=== PATIENT | male | born 1940 | race Caucasian/White ===

== ENCOUNTER 2018-05-07 11:58 | Emergency (ER) | payer MEDICARE, SELFPAY ==
[2018-05-07 11:59] VITALS: BP 181/93; PULSE 89; RESP 14; TEMP 35.7; O2SAT 92; BMI 27.0
[2018-05-07 12:04] VITALS: BP 181/93; PULSE 88; RESP 21; O2SAT 92
--- NOTE | 2018-05-07 12:20 | EKG12_ITS ---
Test Reason : Blood Pressure : / mmHG Vent. Rate : 089 BPM Atrial Rate : 089 BPM P-R Int : 224 ms QRS Dur : 080 ms QT Int : 344 ms P-R-T Axes : 035 -44 049 degrees QTc Int : 418 ms Sinus rhythm with 1st degree A-V block Left axis deviation Poor R wave progression Abnormal ECG Confirmed by SLOANE CALDWELL, TWIN ([id number]), editor news KADEEM KUO ([id number]) on 05/09/2018 4:21:54 PM Referred By: ANGELIQUE Confirmed By:TWIN ANTON MD
--- NOTE | 2018-05-07 12:20 | CT_ITS ---
STUDY: CT BRAIN WITHOUT CONTRAST REASON FOR EXAM: Male, 78 years old. Weakness. The patient has history of prostate cancer. RADIATION DOSAGE (If Supplied By Facility): CTDIvol = ( 60.81 ) mGy, DLP = ( 1181.11 ) mGycm TECHNIQUE: Transaxial CT imaging of the brain was performed without administration of intravenous contrast material. Individualized dose optimization techniques were used for this CT. COMPARISON: Comparison is made with prior study dated August 31, 2016. FINDINGS: Normal soft tissue structures. The patient is status post right parietal craniotomy. The previously seen right subdural hematoma has been evacuated. There is moderate cerebral atrophy with widening of the extra-axial spaces and ventricular dilatation. There are areas of decreased attenuation within the white matter tracts of the supratentorial brain, consistent with microvascular disease changes. Normal basal ganglia and thalami. Normal brainstem. Normal cerebellum. There is no intracranial hemorrhage. There are no findings of an acute ischemic infarction. Atherosclerotic calcification of the vertebral arteries and cavernous portions of the internal carotid arteries bilaterally. Normal visualized paranasal sinuses. CT/Brain/Head without Contrast IMPRESSION: Chronic involutional changes of the brain. Electronically Signed: Jairon Jimenez MD at 13:22 EST Tel [phone], Service support ,
--- NOTE | 2018-05-07 12:31 | ED.DCSUM_ITS ---
- ER Visit Summary Date of Service: 05/07/18 Chief Complaint: Generalized weakness History of Present Illness: The patient is a 78 M history of Parkinson's disease, essential tremor, vgk-kzuigux-mcogwbkrs diabetes, DVT, prior intracranial bleed with prior craniotomy. Patient was at home today felt generally weak which his states is been ongoing. They have a caregiver at home and they have the lower end of the bathroom because he felt so weak. No fall. No injury. No nausea, vomiting, diarrhea no dysuria. No fever. No recent head injury. He does have falls from time to time. Physical Examination: Well-appearing older male. Vital signs are stable and afebrile. H EENT exam unremarkable and atraumatic. Pupils are round reactive light. No facial droop. Normal speech. Neck nontender. Lungs clear to auscultation. Heart regular rhythm no murmur. Chest wall nontender. Abdomen soft nontender. Normal bowel sounds. Pelvic girdle intact. Patient is moving all 4 extremities. 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 Neurologically he is awake and alert. He does have essential tremors and parkinsonian characteristics. He is moving all 4 extremities however. Test Results: CT brain shows chronic changes no acute process read both by the radiologist myself. Chest x-ray portable one view shows no acute abnormality. Atelectasis. Read both by myself and the radiologist. EKG sinus rhythm rate 89 with no acute abnormality. CBC White count 6. Hemoglobin 15. Electrolytes unremarkable glucose of 196. Gap of 12 creatinine 1.2. UA normal. Emergency Department Course and Treatment: Elderly male with generalized weakness. On repeat exam patient is doing well at 16:42 PM. I went over all test results the patient and his . She states he has physical therapy which she is not been that willing to do. She is comfortable taking him home. I did offer discussed with him admission with [facility]ci placement which they are not ready for at this time. Treatment Plan: Discharge to home with follow-up with her primary care physician. Disposition: dc Impression: Acute generalized weakness History of Parkinson's disease This note was generated with [employer] dictation software. It may contain incorrect words, spelling, and punctuation that were not noted in review of the chart prior to signing ED Disposition - Plan for ED Patient: Chief Complaint: Weakness Referrals: Vipin Martin MD [Primary Care Provider] -
--- NOTE | 2018-05-07 12:35 | RAD_ITS ---
STUDY: X-RAY CHEST REASON FOR EXAM: Male, 78 years old. Weakness. TECHNIQUE: Single AP portable view of the chest. COMPARISON: Comparison is made with prior study dated March 13, 2014. FINDINGS: EKG electrodes are seen. There is elevation of the right hemidiaphragm. Mild increased markings at the left lung base suggestive of left basilar atelectasis. Blunting of the left costophrenic angle. Normal size heart. Normal mediastinum and annetta. Normal visualized pulmonary arteries. There is atherosclerotic tortuosity of the aortic arch and descending thoracic aorta. There are diffuse degenerative changes of the visualized thoracic spine. Normal visualized ribs, clavicles, and shoulders. There is no demonstrated abnormality of the visualized soft tissue structures of the upper abdomen. RAD/Chest 1 View (Portable) IMPRESSION: Mild increased linear markings at the left lung base suggestive of linear atelectasis. Follow-up is recommended. Electronically Signed: Jairon Jimenez MD at 13:00 EST Tel [phone], Service support ,
[2018-05-07 12:57] LABS: Absolute Lymphocyte Count 1.36 X10^3/ul (0.83-4.51); Absolute Neutrophil Count 3.9 X10^3/uL (2.0-7.7); Basophil# 0.01 X10^3/uL; Basophil% 0.2 % (0-1); Eosinophil# 0.24 X10^3/uL; Hematocrit 47.5 % (40-54); Hemoglobin 15.9 g/dl (13.0-16.5); Lymphocyte # 1.36 X10^3/ul (4.0); Lymphocyte % 22.4 % (19-41); Mean Corp Hgb Conc 33.5 g/gl (32-36); Mean Corpuscular Hgb 31.7 pg (27.0-32.0); Mean Corpuscular Volume 94.6 fL (80-94); Monocyte# 0.59 X10^3/uL; Monocyte% 9.7 % (0-10); Neutrophil # 3.85 X10^3/uL (2.7-7.7); Neutrophil % 63.5 % (47-70); Platelet Count 245 K/mm3 (150-450); RBC Distribution Width CV 13.5 % (11.6-14.6); RBC Distribution Width SD 46.6 fl (35.1-43.9); Red Blood Count 5.02 M/mm3 (4.6-6.2); White Blood Count 6.1 K/mm3 (4.4-11.0)
[2018-05-07 12:58] LABS: POSITIVE COUNT NO; POSITIVE DIFFERENTIAL NO; POSITIVE MORPHOLOGY NO
[2018-05-07 13:08] LABS: Anion Gap 12 (5-15); BUN 22 mg/dL (7-18); BUN/Creat Ratio 17.9 RATIO (10-20); Calcium,Total 9.1 mg/dL (8.5-10.1); Chloride 105 mmol/L (98-107); Creatinine, Serum 1.23 mg/dL (0.70-1.30); EST Glomerular Filtration Rate 61 mL/min (>60); Est Glom Filt Rate - Afr Amer 73 mL/min (>60); Estimated Creatinine Clearance 47.89 ml/min; Glucose 196 mg/dL (74-106); Potassium 4.4 mmol/L (3.5-5.1); Sodium Level 142 mmol/L (136-145)
[2018-05-07 14:35] VITALS: BP 190/100; PULSE 82; RESP 14; O2SAT 94
[2018-05-07 15:11] LABS: Mucous, Urine 0 SEEN /hpf (<or=2+); Red Blood Cells-Urine 0 SEEN /hpf (0-5); Squamous Epithelial Cells - UA 0 SEEN /hpf (0-5)
[2018-05-07 15:18] LABS: Color, Urine Yellow (Yellow); Glucose, Dipstick 50 mg/dl (Normal); Ketone-Dipstick 5 mg/dl (Negative); Leukocyte Esterase-Dipstick Negative /ul (Negative); Nitrite-Dipstick Negative (Negative); Occult Blood-Urine Negative /ul (Negative); Protein-Dipstick 30 mg/dl (Negative); Specific Gravity, Urine 1.015 (1.002-1.030); Urine Bilirubin Dipstick Negative (Negative); Urine Clarity Clear (Clear); Urine Urobilinogen Normal (Normal)
[2018-05-07 15:34] LABS: White Blood Cells 0-5 SEEN /hpf (0-5)
[2018-05-07 15:35] LABS: Bacteria RARE /hpf (None Seen)
[2018-05-07 16:03] VITALS: BP 180/97; PULSE 84; RESP 16; O2SAT 94
--- NOTE | 2018-05-07 16:56 | ED.DEP ---
ED Disposition - Plan for ED Patient: Disposition: Home or Assisted Living Chief Complaint: Weakness Instructions: ED Weakness [facility] Referrals: Vipin Martin MD [Primary Care Provider] - 3-5 Days if not improving Additional Instructions: Fluids and rest. Follow-up your primary care physician or return if not improving or doing worse.
[2018-05-07 17:40] VITALS: BP 172/90; PULSE 80; RESP 15; O2SAT 97
== END 2018-05-07 17:41 | disposition home or self-care (01) ==
PROVIDERS: Emergency Provider Emergency Medicine; Family Provider Internal Medicine; PCP Internal Medicine
DX: R53.1 Weakness (principal); G20 Parkinson's disease; G25.0 Essential tremor; K21.9 Gastro-esophageal reflux disease without esophagitis; E11.9 Type 2 diabetes mellitus without complications; Z86.718 Personal history of other venous thrombosis and embolism; Z79.84 Long term (current) use of oral hypoglycemic drugs; Z79.899 Other long term (current) drug therapy
CPT/HCPCS: 70450; 71045; 80048; 81001; 85025; 93005; 99284; A4216

== ENCOUNTER → 2018-06-22 10:36 | Outpatient (CLI) | payer MEDICARE, SELFPAY ==
--- NOTE | 2018-06-22 11:01 | MRI_ITS ---
STUDY: MRI BRAIN WITH AND WITHOUT CONTRAST REASON FOR EXAM: Male, 78 years old. NPH. Sagittal tremors. Parkinson's. Increased falls. TECHNIQUE: Standardized multiplanar fat and water weighted pulse sequences were obtained. 8 ml of Gadavist contrast material was administered intravenously for the contrast portion of the examination. COMPARISON: CT head without contrast 05/07/2018. FINDINGS: No restricted diffusion throughout the brain parenchyma. Moderate dilatation of the third and lateral ventricles due to cerebral atrophy, central and cortical. Normal cerebral aqueduct and fourth ventricle. Normal white matter tracts of the supratentorial brain. Normal bilateral basal ganglia. Normal thalami. There is no extra-axial fluid accumulation. Normal flow voids within the major intracranial circulation suggesting patency by spin echo criteria. Normal venous enhancement. There is no enhancing intra-axial or extra-axial abnormality. Normal sella turcica, pituitary gland, infundibular stalk, optic chiasm and hypothalamus. Normal tectal plate and pineal gland. Normal midbrain, maddy and medulla. Normal cerebellum. Normal basal cisterns. Normal bilateral temporal bones. Normal bilateral internal auditory canals. No demonstrated orbital abnormality, within the constraints of a routine brain study. Normal visualized paranasal sinuses. Normal calvarium and skull base. Normal visualized soft tissue structures. Normal visualized upper cervical spine. MRI/Brain W/WO Contrast IMPRESSION: 1. Moderate dilatation of the third and lateral ventricle secondary to cerebral atrophy, central and cortical. 2. No MRI evidence of NPH. If clinical NPH is present, radionuclide cisternogram will be more helpful. Electronically Signed: Quincy Morton MD at 11:13 EST , Service support ,
[2018-06-22 11:36] LABS: CREATININE FINGERSTICK 1.2 mg/dL (0.70-1.30); EGFR FINGERSTICK > 60.0000 mL/min (>60)
== END ==
PROVIDERS: Family Provider Internal Medicine; PCP Internal Medicine; Referring Provider Psychiatry & Neurology Neurology; Visit Provider Psychiatry & Neurology Neurology
DX: G91.2 (Idiopathic) normal pressure hydrocephalus (principal)
CPT/HCPCS: 70553; A9585

== ENCOUNTER 2018-11-27 11:03 | Emergency (ER) | payer MEDICARE, SELFPAY ==
[2018-11-27 11:04] VITALS: BP 185/89; PULSE 74; RESP 12; TEMP 37.3; O2SAT 94; BMI 29.3
--- NOTE | 2018-11-27 11:25 | RAD_ITS ---
STUDY: X-RAY CHEST REASON FOR EXAM: Male, 78 years old. Chest pain. TECHNIQUE: Single AP portable view of the chest. COMPARISON: Comparison is made with prior study dated May 07, 2018. FINDINGS: EKG electrodes are seen. Elevation of the right hemidiaphragm. The lungs are clear. There is no demonstrated pleural abnormality. Normal size heart. Normal mediastinum and annetta. Normal visualized pulmonary arteries. There is atherosclerotic tortuosity of the aortic arch and descending thoracic aorta. There are diffuse degenerative changes of the visualized thoracic spine. Normal visualized ribs, clavicles, and shoulders. There is no demonstrated abnormality of the visualized soft tissue structures of the upper abdomen. RAD/Chest 1 View (Portable) IMPRESSION: No acute abnormality is seen. Electronically Signed: Jairon Jimenez, at 12:21 EDT , Service support ,
--- NOTE | 2018-11-27 11:25 | EKG12_ITS ---
Test Reason : CP Blood Pressure : / mmHG Vent. Rate : 074 BPM Atrial Rate : 074 BPM P-R Int : 228 ms QRS Dur : 082 ms QT Int : 364 ms P-R-T Axes : 024 -42 060 degrees QTc Int : 404 ms Sinus rhythm with 1st degree A-V block Left axis deviation Abnormal ECG Confirmed by SWATHI PÉREZ ([id number]), editor in chief JOSEFINA PENG ([id number]) on 12/03/2018 10:22:55 AM Referred By: LEONCIO Confirmed By:SWATHI PÉREZ
[2018-11-27] MEDS: 0.9% Normal Saline 1,000 ML 150 ML IV (12:15)
[2018-11-27] MEDS: Aspirin 81 MG TAB.CHEW 324 MG PO (12:15)
[2018-11-27 12:35] LABS: Absolute Lymphocyte Count 1.08 X10^3/ul (0.83-4.51); Absolute Neutrophil Count 4.6 X10^3/uL (2.0-7.7); Basophil# 0.04 X10^3/uL; Basophil% 0.6 % (0-1); Eosinophil# 0.29 X10^3/uL; Eosinophils% 4.4 % (0-5); Hematocrit 43.3 % (40-54); Hemoglobin 14.5 g/dl (13.0-16.5); Lymphocyte # 1.08 X10^3/ul (4.0); Lymphocyte % 16.2 % (19-41); Mean Corp Hgb Conc 33.5 g/gl (32-36); Mean Corpuscular Hgb 31.5 pg (27.0-32.0); Mean Corpuscular Volume 93.9 fL (80-94); Mean Platelet Vol. 9.6 fl (6.2-12.0); Monocyte# 0.62 X10^3/uL; Monocyte% 9.3 % (0-10); Neutrophil # 4.62 X10^3/uL (2.7-7.7); Neutrophil % 69.3 % (47-70); Platelet Count 224 K/mm3 (150-450); RBC Distribution Width CV 13.1 % (11.6-14.6); RBC Distribution Width SD 44.5 fl (35.1-43.9); Red Blood Count 4.61 M/mm3 (4.6-6.2); White Blood Count 6.7 K/mm3 (4.4-11.0)
[2018-11-27 12:39] LABS: Anion Gap 9 (5-15); BUN 22 mg/dL (7-18); BUN/Creat Ratio 23.7 RATIO (10-20); Calcium,Total 6.8 mg/dL (8.5-10.1); Chloride 117 mmol/L (98-107); Creatinine, Serum 0.93 mg/dL (0.70-1.30); EST Glomerular Filtration Rate 83 mL/min (>60); Est Glom Filt Rate - Afr Amer 101 mL/min (>60); Estimated Creatinine Clearance 63.33 ml/min; Glucose 117 mg/dL (74-106); Sodium Level 147 mmol/L (136-145)
[2018-11-27 12:43] LABS: POSITIVE COUNT NO; POSITIVE DIFFERENTIAL NO; POSITIVE MORPHOLOGY NO
[2018-11-27 14:04] VITALS: BP 173/89; PULSE 66; RESP 14; O2SAT 96
--- NOTE | 2018-11-27 14:43 | ED.DCSUM_ITS ---
- ER Visit Summary Date of Service: 11/27/18 Chief Complaint: [Chest pain] History of Present Illness: The patient is a 78 M [presents to the emergency department with chest discomfort that started around 1015 this morning. Patient states that he was eating breakfast. Patient developed a retrosternal disc omfort that he states felt like gas and he became sweaty and pale per caregiver. Patient states that it lasted several minutes and then resolved as he felt the gas resolved in his stomach. He denied any radiation of the pain. He is never had discomfort like that before. He has no heart history. Patient currently has no discomfort. Patient does have a history of diabetes, hypertension, prostate cancer, benign tremor, and memory loss.] Physical Examination: [HEENT-PERRLA, EOMI. Cranial nerves II through XII grossly intact. TMs clear. Mucous membranes moist. No adenopathy. Cardiovascular-regular rate and rhythm without murmur or ectopy Lungs-clear to auscultation, chest wall stable without crepitus or subcu emphysema Abdomen-normoactive bowel sounds, soft, nontender, no rebound or rigidity, no peritoneal signs. Extremities-intact ?4, normal range of motion, normal pulses, atraumatic] Test Results: [EKG obtained arrival shows sinus rhythm with a first-degree AV block with a ventricular rate of 74 bpm with no acute ST segment changes. CBC with differential showed a white count 6.7, hemoglobin 14, hematocrit 43, platelets 224. Chemistries are unremarkable other than a potassium of 3.0. BUN was 22 and creatinine was 0.93. Troponin was less than 0.015. Second troponin II hours later was less than 0.015.] Emergency Department Course and Treatment: [Patient on arrival received aspirin.] Treatment Plan: [This point my suspicion for acute coronary syndrome is low. I suspect symptoms likely related to eating and possibly esophageal spasm versus gas. I did advise patient to follow-up with his primary care physician within next 3 to 5 days. I advised him to return if chest pain should return, increasing shortness of breath, exertional dyspnea, or condition should worsen anyway.] Disposition: [Discharged home in stable condition.] Impression: [Chest pain-etiology uncertain] This note was generated with [employer] dictation software. It may contain incorrect words, spelling, and punctuation that were not noted in review of the chart prior to signing ED Disposition - Plan for ED Patient: Instructions: CHEST PAIN, Uncertain Cause Referrals: Vipin Martin MD [Primary Care Provider] - 3-5 Days
[2018-11-27 15:38] VITALS: BP 154/83; PULSE 90; RESP 16; TEMP 36.3; O2SAT 98
== END 2018-11-27 15:39 | disposition home or self-care (01) ==
PROVIDERS: Emergency Provider Emergency Medicine; Family Provider Internal Medicine; PCP Internal Medicine
DX: R07.89 Other chest pain (principal); I10 Essential (primary) hypertension; E11.9 Type 2 diabetes mellitus without complications; R41.3 Other amnesia; R25.1 Tremor, unspecified; Z85.46 Personal history of malignant neoplasm of prostate; Z79.84 Long term (current) use of oral hypoglycemic drugs; Z79.899 Other long term (current) drug therapy
CPT/HCPCS: 36415; 71045; 80048; 84484; 85025; 93005; 96360; 96361; 99285; J7030; A4216

== ENCOUNTER 2020-12-02 20:04 | Emergency (ER) | payer MEDICARE, SELFPAY ==
[2020-12-02 20:06] VITALS: BP 166/67; PULSE 87; RESP 18; TEMP 36.5; O2SAT 98; BMI 28.9
--- NOTE | 2020-12-02 20:07 | RAD_ITS ---
STUDY: X-RAY CHEST REASON FOR EXAM: Male, 80 years old. Neuro deficit, acute, stroke suspected TECHNIQUE: Single AP portable view of the chest. COMPARISON: 11/27/2018. FINDINGS: Moderate lung volumes. Mild subsegmental atelectasis suggested in both lung bases. No definite focal infiltrate. No effusions. Normal size heart. Normal mediastinum and annetta. Normal visualized pulmonary arteries. Normal visualized aortic arch and descending thoracic aorta. Normal visualized thoracic spine. Normal visualized ribs, clavicles, and shoulders. There is no demonstrated abnormality of the visualized soft tissue structures of the upper abdomen. RAD/Chest 1 View IMPRESSION: Mild subsegmental atelectasis suggested in both lung bases. Electronically Signed: José Miguel Macdonald MD at 21:02 EDT , Service support ,
--- NOTE | 2020-12-02 20:07 | EKG12_ITS ---
Test Reason : STROKE Blood Pressure : / mmHG Vent. Rate : 087 BPM Atrial Rate : 087 BPM P-R Int : 258 ms QRS Dur : 088 ms QT Int : 356 ms P-R-T Axes : 050 -14 060 degrees QTc Int : 428 ms Sinus rhythm with 1st degree A-V block Otherwise normal ECG Confirmed by HUNG CALDWELL, REAL ([id number]), commissioning editor JAMIR WILKINS ([id number]) on 12/04/2020 12:56:02 PM Referred By: RU Confirmed By:REAL PERSAUD MD
--- NOTE | 2020-12-02 20:08 | EDS_ITS ---
HPI History of Present Illness Chief Complaint: Neuro S/Sx Detail of Chief Complaint: Right-sided facial droop Informant: patient and EMS Narrative Narrative: Patient's noticed a right-sided facial droop approximately 15 minutes prior to EMS being contacted time was approximately 1930. Patient denies headache. He denies weakness. He does have history of essential tremor. He said a history of hypertension. Patient has history of intracranial hemorrhage 4 years ago after a fall. Patient denies recent illness. Prior similar symptoms: No PFSH [facility] Medical History (Updated 12/02/20 @ 21:[address] Jose Aggarwal, DO) Essential tremor Subdural hematoma Home Medications coenzyme Q10 [Co Q-10] 100 mg PO DAILY 03/13/14 [History Last Taken 05/07/18] glipizide 10 mg PO DAILY@0730 03/13/14 [History Last Taken 05/07/18] lisinopril 40 mg PO DAILY 03/13/14 [History Last Taken 05/06/18] metformin 1,000 mg PO DAILY 08/17/16 [History Last Taken 05/06/18] vitamin B complex 1 cap PO DAILY 08/17/16 [History Last Taken 05/07/18] Advanced Memory Formula 11/27/18 [History Last Taken Unknown] hydralazine 50 mg PO TID 11/27/18 [History Last Taken Unknown] propranolol 20 mg PO TID 11/27/18 [History Last Taken Unknown] doxazosin 1 mg PO DAILY 12/02/20 [History Last Taken Unknown] dulaglutide [Trulicity] mg SUBCUT 12/02/20 [History Last Taken Unknown] famciclovir 250 mg PO TID 7 Days #21 tab 12/02/20 [Rx Last Taken Unknown] prednisone 20 mg PO BID 5 Days #10 tab 12/02/20 [Rx Last Taken Unknown] Allergy/AdvReac Type Severity Reaction Status Date / Time No Known Allergies Allergy Verified 03/13/14 16:31 Social History Smoking Status: Never smoker ROS ROS ED Constitutional Constitutional ED: Reports systems reviewed and no addt'l complaints, except as documented; Denies body ache(s), change in weight or chills Eyes Eyes: Denies acute decrease in peripheral vision, change in vision, double vision or loss of vision ENT ENT ED: Reports none; Denies ear pain, lip swelling, loss taste/smell, neck pain, otalgia or sore throat Cardiovascular Cardiovascular: Reports none; Denies abdominal pain, chest pain with activity, leg edema, lightheadedness, palpitations, rapid heart rate or syncope Respiratory/Chest Respiratory/Chest: Reports none; Denies change in mental status, dry cough, dyspnea, hemoptysis, shortness of breath at rest or shortness of breath with exertion Gastrointestinal Gastrointestinal: Reports none; Denies abdominal pain, change in stool character, diarrhea, hematemesis, hematochezia, melena, rectal bleeding or vomiting Genitourinary Genitourinary ED: Reports none; Denies abdominal discomfort, anuria, dysuria, genital pain or polyuria Musculoskeletal Musculoskeletal: Reports none; Denies arthralgias, back pain, difficulty walking, extremity pain, muscle weakness or myalgias Integumentary Reports none; Denies abscess or rash Neurologic Neurologic: Reports none and other Details: Right facial droop ; Denies abnormal gait, confusion, focal weakness, frequent falls, headache(s), loss of vision, numbness, paresthesias, radicular pain, vertigo or weakness Psychiatric Psychiatric: Reports systems reviewed and no addt'l complaints, except as documented and none; Denies behavioral changes, confusion, difficulty concentrating, hallucinations, suicidal ideation, tactile hallucinations or visual hallucinations Endocrine Endocrinology: Denies none, cold intolerance, excessive sweating, fatigue or heat intolerance Hematologic/Lymphatic Hematologic/Lymphatic: Reports none; Denies anemia, easy bleeding or easy bruising Allergic/Immunologic Allergic/Immunologic ED: Denies as per HPI, none, lip swelling, mouth swelling, throat swelling, tongue swelling or hives EXAM Physical Exam Const Vital Signs: 12/02/20 20:06 12/02/20 20:23 Temperature 97.7 F L Temperature Source Temporal Pulse Rate 87 Respiratory Rate 18 Blood Pressure 166/67 H Blood Pressure Mean 100 Pulse Ox 98 Oxygen Delivery Method Room Air Room Air Positive well nourished and well developed General Appearance ED: well developed and NAD HEENT Reports TM's clear and moist mucous membranes normocephalic and atraumatic; Negative for trauma or tenderness Tympanic Membrane ED: Yes TM's clear Eyes PERRL and EOMs intact bilaterally General Eye ED: Negative for pale conjunctiva or scleral icterus Neck no lymphadenopathy, supple and no JVD General: Negative for tenderness Chest Wall inspection of chest normal and palpation of chest normal Chest: Negative for tenderness Resp normal respiratory effort and clear to auscultation bilaterally Effort and Inspection: Negative for respiratory distress or pain with movement Auscultation: Negative for rhonchi, wheezes or diminished lung sounds Cardio regular rate, regular rhythm, S1 normal heart sound, S2 normal heart sound and no murmurs Peripheral Pulses: pulses 2+ throughout GI normal to inspection, nondistended, normoactive bowel sounds, soft to palpation, non-tender, non-distended and no masses Back/Spine no CVA tenderness and no thoracic nor lumbar tenderness Extremity normal to inspection General Extremety ED: Negative for edema General Extremity: Negative for edema Neuro oriented x3, no sensory deficits noted and gait normal Neuro Narrative: A right-sided facial droop is present. Sensorium / Orientation: awake, alert, oriented to person, oriented to place and oriented to time Motor Exam: strength 5/5 throughout and strength abnormal Psych mental status grossly normal Skin no rashes or lesions noted and no wounds STROKE Vital Signs/Narrative: Vital Signs Temp Pulse Resp BP Pulse Ox 12/02/20 20:06 97.7 F L 87 18 166/67 H 98 MDM MDM MDM Narrative Medical decision making narrative: Patient had right upper lid weakness and inability to wrinkle the right upper forehead compared to the left. I suspect patient may have a Leal's palsy and teleneurology stroke neurologist was in agreement. At this point it was recommended that we start patient on antiviral as well as prednisone and outpatient follow-up. CTA of head neck was normal as well as CT scan of the brain. Lab Data Attestation: I reviewed the patient's lab results. Labs: Laboratory Results - last 24 hr 12/02/20 12/02/20 12/02/20 20:00 20:00 20:00 WBC 8.4 RBC 3.93 L Hgb 10.4 L Hct 33.8 L MCV 86.0 MCH 26.5 L MCHC 30.8 L RDW Std Deviation 48.5 H RDW Coeff of Armani 15.4 H Plt Count 314 MPV 9.7 Immature Gran % (Auto) 0.200 Neut % (Auto) 64.4 Lymph % (Auto) 19.8 Kemper % (Auto) 10.6 H Eos % (Auto) 4.4 Baso % (Auto) 0.6 Absolute Neuts (auto) 5.4 Absolute Lymphs (auto) 1.66 Nucleated RBC % 0 PT 12.2 INR 1.0 APTT 28.9 Sodium 141 Potassium 4.5 Chloride 108 H Carbon Dioxide 26.0 Anion Gap 7 BUN 22 H Creatinine 1.41 H Estim Creat Clear Calc 40.43 Est GFR (MDRD) Af Amer 62 Est GFR (MDRD) Non-Af 51 L BUN/Creatinine Ratio 15.6 Glucose 133 H Calcium 9.4 Troponin I High Sens 9.5 Radiography Diagnostic Testing: Radiology Impression Chest X-Ray 12/02/20 20:07 IMPRESSION: Mild subsegmental atelectasis suggested in both lung bases. Electronically Signed: José Miguel Macdonald MD at 21:02 EDT , Service support , Brain CT 12/02/20 20:08 IMPRESSION: Chronic involutional changes of the brain. No definite acute abnormalities. Electronically Signed: José Miguel Macdonald MD at 20:21 EDT , Service support , ADDENDUM: 12/02/202031 IMPRESSION: Chronic involutional changes of the brain. No definite acute abnormalities. N.B. : The above Results were Read Back by José Miguel Macdonald MD to Dr. Jose Aggarwal MD, and understanding confirmed on 12/02/2020 20:25:16 (ET). Electronically Signed: José Miguel Macdonald MD at 20:21 EDT , Service support , Head/Neck CTA 12/02/20 20:08 IMPRESSION: Normal CTA Head and neck with contrast. Electronically Signed: José Miguel Macdonald MD at 20:44 EDT , Service support , ADDENDUM: 12/02/202053 IMPRESSION: Normal CTA Head and neck with contrast. N.B. : The above Results were Read Back by José Miguel Macdonald MD to Dr. Ori MD, and understanding confirmed on 12/02/2020 20:47:53 (ET). Electronically Signed: José Miguel Macdonald MD at 20:44 EDT , Service support , EKG Initial EKG: Attestation: I personally reviewed and interpreted this EKG as follows: Comments: Sinus rhythm with a ventricular rate of 87 bpm with a first- degree AV block Discharge Plan Triage Chief Complaint: Neuro S/Sx ED Provider: Jose Aggarwal Dx/Rx/DC Orders Clinical Impression: Leal's palsy Instructions: ED Leal's Palsy Prescriptions: New prednisone 20 mg tablet 20 mg PO BID 5 Days Qty: 10 RF: 0 famciclovir 250 mg tablet 250 mg PO TID 7 Days Qty: 21 RF: 0 No Action glipizide 10 MG tablet 10 mg PO DAILY@0730 RF: 0 lisinopril 40 MG tablet 40 mg PO DAILY RF: 0 coenzyme Q10 [Co Q-10] 100 MG capsule 100 mg PO DAILY RF: 0 metformin 1,000 MG tablet 1,000 mg PO DAILY RF: 0 vitamin B complex 1 EACH capsule 1 cap PO DAILY RF: 0 Advanced Memory Formula RF: 0 propranolol 10 MG tablet 20 mg PO TID RF: 0 hydralazine 50 MG tablet 50 mg PO TID RF: 0 doxazosin 1 mg tablet 1 mg PO DAILY RF: 0 Trulicity 0.75 mg/0.5 mL pen injector SUBCUT RF: 0 Primary Care Provider: Vipin Martin Referrals: Vipin Martin MD [Primary Care Provider] - 3-5 Days Disposition Disposition: Home, Self Care
--- NOTE | 2020-12-02 20:08 | CT_ITS ---
We are attempting to reach an attending provider to discuss findings. An addendum with communication details will be sent when the communication is complete. STUDY: CT HEAD STROKE PROTOCOL W/O CONTRAST INJECTION REASON FOR EXAM: Male, 80 years old. Neuro deficit, acute, stroke suspected TECHNIQUE: Transaxial CT imaging of the brain was performed without administration of intravenous contrast material. Individualized dose optimization techniques were used for this CT. COMPARISON: MRI 06/22/2018 FINDINGS: Normal soft tissue structures. Postcraniotomy changes of the right skull, otherwise normal calvarium. There is mild cerebral atrophy with widening of the extra-axial spaces and ventricular dilatation. There are areas of decreased attenuation within the white matter tracts of the supratentorial brain, consistent with microvascular disease changes. Normal basal ganglia and thalami. Normal brainstem. There is mild cerebellar atrophy. Heavily calcified vessels at the base of the brain. There is no intracranial hemorrhage. There are no findings of an acute ischemic infarction. Normal visualized paranasal sinuses. ASPECT score: 10 CT/STROKE Brain/Head without Cont IMPRESSION: Chronic involutional changes of the brain. No definite acute abnormalities. Electronically Signed: José Miguel Macdonald MD at 20:21 EDT , Service support ,
--- NOTE | 2020-12-02 20:08 | CT_ITS ---
We are attempting to reach an attending provider to discuss findings. An addendum with communication details will be sent when the communication is complete. STUDY: CTA HEAD AND NECK WITH CONTRAST REASON FOR EXAM: Male, 80 years old. Neuro deficit, acute, stroke suspected RADIATION DOSAGE (If Supplied By Facility): CTDIvol = ( 24.26 ) mGy, DLP = ( 839.64 ) mGycm TECHNIQUE: CT angiography was performed with a multi-detector CT scanner. Data acquisition was obtained from the skull base through the vertex following intravenous administration of IV 100mL Isovue-370. MIP images were reconstructed from the axial data set. Post-processing of the angiographic images was performed, with multiplanar reformation and 3D reconstruction. Individualized dose optimization techniques were used for this CT. COMPARISON: No relevant priors. FINDINGS: Normal bilateral petrous carotid arteries. Normal right cavernous carotid artery with a normal supraclinoid bifurcation. Normal left cavernous carotid artery with a normal supraclinoid bifurcation. Normal right A1 segments of the anterior cerebral artery. Normal left A1 segments of the anterior cerebral artery. Normal intact anterior communicating artery (ACOM). Normal bilateral A2 segments of the anterior cerebral arteries. Normal right M1 and M2 segments of the middle cerebral arteries, with a normal M1 bifurcation. Normal left M1 and M2 segments of the middle cerebral arteries, with a normal M1 bifurcation. Normal right posterior communicating artery (PCOM). Normal left posterior communicating artery (PCOM). Normal bilateral vertebral arteries. Normal basilar artery with a normal basilar bifurcation. The visualized bilateral superior cerebellar (SCA) arteries are normal. Normal bilateral P1, P2 and visualized P3 segments of the posterior cerebral arteries. There is no demonstrated aneurysm of the [place] of [place]. There is no demonstrated abnormality of the visualized brain. AORTIC ARCH: Normal visualized aortic arch. Normal origins of the brachiocephalic, left common carotid, and left subclavian arteries. RIGHT CAROTID ARTERIES: There is atherosclerotic tortuous elongation of the right common carotid artery. Normal right common carotid bulb. Normal origin of the right internal carotid (ICA) artery without a hemodynamically significant stenosis. There is atherosclerotic tortuous elongation of the cervical portion of the right internal carotid artery. Normal origin of the right external carotid artery (ECA). LEFT CAROTID ARTERIES: There is atherosclerotic tortuous elongation of the left common carotid artery. Normal left common carotid bulb. Normal origin of the left internal carotid (ICA) artery without a hemodynamically significant stenosis. There is atherosclerotic tortuous elongation of the cervical portion of the left internal carotid artery. Normal origin of the left external carotid artery (ECA). VERTEBRAL ARTERIES: Normal bilateral vertebral arteries. CT/STROKE CTA Head AND Neck W/Con IMPRESSION: Normal CTA Head and neck with contrast. Electronically Signed: José Miguel Macdonald MD at 20:44 EDT , Service support ,
[2020-12-02 20:26] LABS: Absolute Lymphocyte Count 1.66 X10^3/uL (0.83-4.51); Absolute Neutrophil Count 5.4 X10^3/uL (2.0-7.7); Basophil# 0.05 X10^3/uL; Basophil% 0.6 % (0-1); Eosinophil# 0.37 X10^3/uL; Eosinophils% 4.4 % (0-5); Hematocrit 33.8 % (40-54); Hemoglobin 10.4 g/dL (13.0-16.5); Lymphocyte # 1.66 X10^3/ul (0.83-4.51); Lymphocyte % 19.8 % (19-41); Mean Corp Hgb Conc 30.8 g/dL (32-36); Mean Corpuscular Hgb 26.5 pg (27.0-32.0); Mean Platelet Vol. 9.7 fl (6.2-12.0); Monocyte# 0.89 X10^3/uL; Monocyte% 10.6 % (0-10); NRBC Flagged by Analyzer 0 % (0-5); Neutrophil # 5.38 X10^3/uL (2.7-7.7); Neutrophil % 64.4 % (47-70); Platelet Count 314 K/mm3 (150-450); RBC Distribution Width CV 15.4 % (11.6-14.6); RBC Distribution Width SD 48.5 fl (35.1-43.9); Red Blood Count 3.93 M/mm3 (4.6-6.2); White Blood Count 8.4 K/mm3 (4.4-11.0)
[2020-12-02 20:41] LABS: Prothrombin Time (Protime)PT. 12.2 SECONDS (11.7-14.9)
[2020-12-02 20:42] LABS: Partial Thromboplast Time 28.9 Seconds (24.1-36.2)
[2020-12-02 20:46] LABS: Anion Gap 7 (5-15); BUN 22 mg/dL (7-18); BUN/Creat Ratio 15.6 RATIO (10-20); Calcium,Total 9.4 mg/dL (8.5-10.1); Chloride 108 mmol/L (98-107); Creatinine, Serum 1.41 mg/dL (0.70-1.30); EST Glomerular Filtration Rate 51 mL/min (>60); Est Glom Filt Rate - Afr Amer 62 mL/min (>60); Estimated Creatinine Clearance 40.43 ml/min; Glucose 133 mg/dL (74-106); Potassium 4.5 mmol/L (3.5-5.1); Sodium Level 141 mmol/L (136-145); Troponin-I HS 9.5 pg/mL (3.0-78.5)
--- NOTE | 2020-12-02 20:51 | ED.RN ---
2041 DR. FANG CANCELLED [facility] D/T DIAGNOSIS OF BELLS PALSY
[2020-12-02 20:52] VITALS: BMI 28.9
[2020-12-02 21:16] VITALS: BP 135/80; PULSE 85; RESP 18; O2SAT 97
[2020-12-02] MEDS: Contrast Allergy Safety Check IV (21:17)
[2020-12-02] MEDS: predniSONE 20 MG Tablet 40 MG PO (21:37)
[2020-12-02] MEDS: Acyclovir 200 MG Capsule 400 MG PO (21:37)
[2020-12-02 22:04] VITALS: BP 131/72; PULSE 84; RESP 18
--- NOTE | 2020-12-05 10:03 | CM.ED ---
Late Entry for 12/02/20 Referral Source: Case Find Referral Reason: Stroke Alert SW responded to stroke alert for patient. No family present to provide support. SW remains available as needed. Moni DEY
== END 2020-12-02 22:05 | disposition home or self-care (01) ==
PROVIDERS: Emergency Provider Emergency Medicine; PCP Internal Medicine
DX: G51.0 Bell's palsy (principal); I10 Essential (primary) hypertension; Z79.899 Other long term (current) drug therapy; Z86.73 Personal history of transient ischemic attack (TIA), and cerebral infarction without residual deficits
CPT/HCPCS: 70450; 70496; 70498; 71045; 80048; 84484; 85025; 85610; 85730; 93005; 99285; Q9967

== ENCOUNTER → 2021-03-22 08:09 | Outpatient (CLI) | payer MEDICARE, SELFPAY ==
--- NOTE | 2021-03-22 08:14 | RAD_ITS ---
PROCEDURE: Upper GI with Small Bowel Follow Through DATE OF EXAMINATION: 03/22/2021.. INDICATION: Male, 81 years old. Weight loss. Vomiting. FLUOROSCOPY TIME (if supplied): (1:08) minutes/seconds. 16 images were obtained. TECHNIQUE: Radiographic and fluoroscopic images of the distal esophagus, stomach, and entire small intestine were obtained following the oral ingestion of barium. COMPARISON: None. FINDINGS: The bin tripper operator film of the abdomen demonstrates a normal bowel gas pattern. There are no abnormal calcifications or organomegaly demonstrated. Degenerative changes of the thoracic spine. There is evidence of the gastroesophageal reflux. The remainder of the stomach and duodenum is unremarkable. A single contrast contrast small bowel follow through exam demonstrates the small bowel to have no evidence for stricture, ulceration or mass. The transit time is prolonged. No evidence of obstruction. Surgical clips are seen in the pelvis in keeping with prior radical prostatectomy. RAD/Upper GI/w Small Bowel IMPRESSION: Gastroesophageal reflux. Electronically Signed: Jairon Jimenez MD at 15:40 EDT , Service support ,
== END ==
PROVIDERS: PCP Internal Medicine; Referring Provider Nurse Practitioner; Visit Provider Nurse Practitioner
DX: R63.4 Abnormal weight loss (principal); R11.2 Nausea with vomiting, unspecified
CPT/HCPCS: 74246; 74248

== ENCOUNTER → 2021-04-22 09:38 | Outpatient (CLI) | payer MEDICARE, SELFPAY ==
--- NOTE | 2021-04-22 09:44 | VDLE_ITS ---
Reason For Study: Swelling Procedure LEFT This is a venous duplex using B-mode, color GSV is normal. flow and spectral Doppler. FV is compressible, spontaneous, phasic, Exam performed in department. competent and demonstrates normal A preliminary report was called and/or faxed augmentation. to Kasie MURRY and [facility]. POP V is compressible, spontaneous, phasic, competent and demonstrates normal augmentation. T/P Trunk is compressible. PTV is compressible. LT PerV is compressible. CFV is noncompressible with no venous flow noted consistent with Acute DVT. VL/Venous Duplex US, Unilateral Interpretation Summary Acute deep venous thrombosis left common femoral vein. Remainder of the left lower extremity deep veins appear to be patent and compre ssible Patent and compressible left great saphenous vein Ordering Physician: Vince English Referring Physician: Vipin Martin M.D. Performed By: Zainab Bergeron RVT
--- NOTE | 2021-04-22 10:08 | RAD_ITS ---
STUDY: X-RAY CHEST REASON FOR EXAM: Male, 81 years old. CHEST PAIN colon mass TECHNIQUE: XR Chest 2 Views COMPARISON: 01/01/2021 FINDINGS: There are bilateral pleural effusions. There are bilateral infiltrates. Normal size heart. Normal mediastinum and annetta. Normal visualized pulmonary arteries. There is atherosclerotic calcification of the aortic arch with tortuosity. There are diffuse degenerative changes of the visualized thoracic spine. There is degenerative osteoarthritis of the bilateral shoulders. Compression formation of the lower thoracic spine. Abnormal air-fluid levels in the colon. Obstruction cannot be excluded recommend CT to evaluate RAD/Chest PA and Lateral IMPRESSION: Abnormal air-fluid levels in the colon. Obstruction cannot be excluded recommend CT to evaluate. There are compression deformities of the spine. These are age-indeterminate. MRI could further evaluate if of concern. Electronically Signed: Chase Mobley MD at 16:52 EST , Service support ,
[2021-04-22 11:49] LABS: Absolute Lymphocyte Count 1.49 X10^3/uL (0.83-4.51); Absolute Neutrophil Count 6.1 X10^3/uL (2.0-7.7); Basophil# 0.03 X10^3/uL; Basophil% 0.4 % (0-1); Eosinophil# 0.13 X10^3/uL; Eosinophils% 1.5 % (0-5); Hematocrit 42.5 % (40-54); Hemoglobin 13.7 g/dL (13.0-16.5); Lymphocyte # 1.49 X10^3/ul (0.83-4.51); Lymphocyte % 17.7 % (19-41); Mean Corp Hgb Conc 32.2 g/dL (32-36); Mean Corpuscular Hgb 27.5 pg (27.0-32.0); Mean Corpuscular Volume 85.2 fL (80-94); Mean Platelet Vol. 9.6 fl (6.2-12.0); Monocyte# 0.66 X10^3/uL; Monocyte% 7.8 % (0-10); NRBC Flagged by Analyzer 0 % (0-5); Neutrophil # 6.09 X10^3/uL (2.7-7.7); Neutrophil % 72.4 % (47-70); Platelet Count 326 K/mm3 (150-450); RBC Distribution Width CV 18.2 % (11.6-14.6); RBC Distribution Width SD 55.9 fl (35.1-43.9); Red Blood Count 4.99 M/mm3 (4.6-6.2); White Blood Count 8.4 K/mm3 (4.4-11.0)
[2021-04-22 11:57] LABS: International Normalized Ratio 0.9; Prothrombin Time (Protime)PT. 11.8 SECONDS (11.7-14.9)
[2021-04-22 11:58] LABS: Partial Thromboplast Time 27.3 Seconds (24.1-36.2)
[2021-04-22 12:20] LABS: ALB/GLOB Ratio 0.8 RATIO (0.9-2.4); AST(SGOT) 20 U/L (15-37); Alanine Aminotransfer ALT/SGPT 16 U/L (16-61); Albumin, Serum 3.1 g/dL (3.2-5.0); Alkaline Phosphatase 136 U/L (45-117); Anion Gap 9 (5-15); BUN 21 mg/dL (7-18); BUN/Creat Ratio 12.7 RATIO (10-20); Calcium,Total 9.9 mg/dL (8.5-10.1); Chloride 104 mmol/L (98-107); Creatinine, Serum 1.65 mg/dL (0.70-1.30); EST Glomerular Filtration Rate 43 mL/min (>60); Est Glom Filt Rate - Afr Amer 52 mL/min (>60); Globulin 3.9 g/dL (2.2-4.2); Glucose 174 mg/dL (74-106); Potassium 4.7 mmol/L (3.5-5.1); Sodium Level 137 mmol/L (136-145)
== END ==
PROVIDERS: PCP Internal Medicine; Visit Provider Surgery
DX: M79.89 Other specified soft tissue disorders (principal); K63.89 Other specified diseases of intestine
CPT/HCPCS: 36415; 71046; 80053; 85025; 85610; 85730; 93971

== ENCOUNTER 2021-04-23 08:29 | Day surgery (SDC) | payer MEDICARE, SELFPAY ==
[2021-04-23] VITALS (17 sets, daily range): BP systolic 110–140; BP diastolic 60–80; PULSE 62–76; RESP 16–18; TEMP 36.1–37.1; O2SAT 95–100; BMI 25.5
--- NOTE | 2021-04-23 | GASB_PTH ---
PATIENT: VIKRAM PORTER LOC: EN U#:[id number] AGE/SX: 81/M ROOM: RE04/23/[address]: Dr. Vince English MD : 1940 BED: DIS: 04/23/2021 SPEC #: [id number] RECD: 04/23/21 11:21 STATUS: BELEM TAD #: [id number] MANISHA: 04/23/21 00:[address]: Vince English DEPT: SURGICAL PATHOLOGY RECD BY: Forrest Dick ENTERED: 04/23/21 12:31 SP TYPE: Gastric Bx OTHR DR: Dr. Vipin Martin MD Tissues: A - Gastric mucous membrane B - COLON BIOPSY C - Stomach, NOS D - Esophageal mucous membrane Procedures: Special Stain Group I Surgery Specimen Level IV GMS Stain (control) HEADER OPERATION: Colonoscopy, EGD ([facility]) PRE-OP DIAGNOSIS: Colonic obstruction TISSUE SUBMITTED: A ? Antrum biopsy for H. pylori and path, B ? Fundic polyp biopsy, C ? Deformity lesser curvature biopsy, D ? Distal esophagus biopsy MICROSCOPIC DIAGNOSIS A. Gastric antrum, biopsy: Chronic gastritis. See comment. B. Gastric fundus, biopsy: Fundic gland polyp. C. Lesser curvature of stomach, biopsy: Mild chronic gastritis. D. Distal esophagus, biopsy: Fibrinopurulent material consistent with ulceration. Negative for fungal organisms. Negative for goblet cell metaplasia. See comment. AM:margie 04/26/2021 COMMENT A. The results of immunohistochemistry for Helicobacter pylori will be reported separately ([id number]). D. GMS stain with matched control was used in the evaluation of this case. AB/PAS stain with matched control is negative for intestinal cell metaplasia. MICROSCOPIC DESCRIPTION Slides are reviewed. GROSS DESCRIPTION A - Received in fixative is one container labeled with the patient's name and designated antrum biopsy. The specimen consists of two irregular fragments of light ledesma soft tissue that in aggregate measure 0.6 x 0.3 x 0.1 cm. The specimen is totally submitted in one cassette. B - Received in fixative is one container labeled with the patient's name and designated fundic polyp biopsy. The specimen consists of one irregular fragment of light ledesma soft tissue that measures 0.4 x 0.3 x 0.1 cm. The specimen is totally submitted in one cassette. C - Received in fixative is one container labeled with the patient's name and designated deformity lesser curvature biopsy. The specimen consists of one irregular fragment of light ledesma soft tissue that measures 0.5 x 0.4 x 0.1 cm. The specimen is totally submitted in one cassette. D - Received in fixative is one container labeled with the patient's name and designated distal esophagus biopsy. The specimen consists of one irregular fragment of light ledesma soft tissue that measures 0.4 x 0.3 x 0.1 cm. The specimen is totally submitted in one cassette. / SJ:rg 04/23/21 TC:3 CPT: 90167 x4, 65021, 61948
[2021-04-23] MEDS: 0.9% Normal Saline 1,000 ML 999 ML IV (07:13)
--- NOTE | 2021-04-23 08:36 | PCM.HP.BLA ---
History and Physical Date of Admission: 04/23/21 Intake Visit Reasons: C-Scope Chief Complaint: c-scope Hi Lift Operator Required: No Is patient in pain?: No Allergies No Known Allergies Allergy (Verified 04/22/21 08:32) [facility] Medical History Colonic mass Essential tremor Subdural hematoma Surgical History S/P craniotomy S/P lower limb amputation S/P prostatectomy Family History Mother Hypertension CAD (coronary artery disease) Social History Smoking Status: Never smoker alcohol intake: current HPI HPI HPI: VIKRAM PORTER, is a 81 M who presents to the office today for surgical consultation regarding abdominal pain and 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 Patient is referred by Dr. Martin and written copy my surgical consult recommendations would return to him. The patient is accompanied by his and daughter. Get a consistent history from the patient is very very difficult. Apparently he vomited stool-like material 01/09/2021. He has not been feeling well markedly diminished appetite and constant nausea. Most recent colonoscopy apparently 15 years ago. He will not eat he will not take fluids he has stopped his medication over a month ago. On 03/22/2021 he had a upper GI small bowel follow-through at the [facility]. Gastroesophageal reflux disease. No acute small bowel issues. At the [facility] on 04/15/[address] scan of the abdomen and pelvis. 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 Left kidney cystic structure. There is a 3.3 cm segment of distal transverse colon the left hemiabdomen abdomen with marked narrowing adjacent fat stranding as well as upstream colonic dilatation with air-fluid levels. The stranding goes to the level of the gastric antrum. This is highly suspicious for neoplasm. There is concerned about inferior aspect of the gastric antrum from possibly involved as well. The patient's had a previous history of a right leg fracture as best I can tell. He says it turns into gangrene. He had a have a right below-knee amputation. He also apparently had a subdural hematoma. He then had a rebleed. Apparently because of a DVT had a have a IVC filter placed. According to the that IVC filter has been removed. The patient has noted swelling of his left leg. The patient has felt very fatigued. Apparently he is known to be anemic with worsening anemia. He has had very little activity. He does not feel that he has been exposed to COVID-19. He has been vaccinated. After stopping all of his medications they still been checking his blood sugar ranging approximately 160. His antihypertensives were stopped because he has not been taking fluid and he has been hypotensive. He has had a history of prostate cancer and a radical prostatectomy. He apparently had recurrent disease and had to have radiation treatment ROS General General: Yes weight change, appetite and fatigue; No colon cancer, breast cancer or weakness HEENT HEENT: No difficulty swallowing, eye injury, eye surgery, swollen glands or hoarseness Endo Endocrine: Yes diabetes mellitus; No thyroid disease, thyroid cancer, Hair loss, heat intolerance or cold intolerance Skin Skin: No rash or changing moles Breast Breast: No left breast lump, right breast lump, nipple discharge, breast pain, abnormal mammogram, abnormal US or breast enlargement Musc Musculoskeletal: No back problems, arthritis, rheumatoid arthritis, gout or joint pain Cardio Cardiovascular: Yes high blood pressure; No murmur, pacemaker, heart disease, atrial fibrillation, heart attack, heart stent, palpitations, shortness of breat with exertion or chest pain Psych Psychiatric: Yes depression; No anxiety or hearing voices Resp Respiratory: No shortness of breath, Yes sleep apnea, No cough, No COPD, No asthma, No emphysema and No wheezing Gastro Gastrointestinal: No abdominal pain, Yes nausea or vomiting, Yes diarrhea, Yes constipation, No blood in stool, Yes acid reflux, No hemorrhoids, No ulcers, No gallbladder problem and No black,tarry stools Joseph Hematologic: No blood thinners, No blood disorders, No bleeding, Yes anemia and No blood clots Neuro Neurologic: No system reviewed and no additional complaints, except as documented, No as per HPI, No abnormal gait, No abnormal hearing, No abnormal movements, No abnormal speech, No behavioral changes, No burning sensations, No confusion, No convulsions, No disequilibrium, No dizziness, No localized weakness, No frequent falls, No headache(s), No lack of coordination, No loss of vision, No memory loss, No numbness, No other visual disturbances, No radicular pain, No restless legs, No sensory deficit, No syncope, No tingling, No tremor(s), No weakness and No other Exam Const Other: The patient has essential tremors. He appears to be every bit of 81 years of age. Somewhat hunched over frail in appearance. He is currently denying pain. HENMT Other: Disheveled hair Eyes General: appearance normal, both eyes and all related structures Chest Chest palpation & inspection: normal inspection of the chest Other: Kyphosis, adequate inspiration Resp Auscultation: clear to auscultation bilaterally Cardio Rate: regular rate Rhythm: regular rhythm GI Other: Soft, doughy, seeming enlargement of the right bowel noted but not tender, bowel sounds present with some occasional tinkles, well-healed infraumbilical midline incision, fibrofatty fullness left lower quadrant Musc Other: Cervical kyphosis Skin Other: Light petechial rash left pretibia. 1+ pitting edema. Right BKA Neuro Other: Severe tremors of his hands and legs Extrem Other: BKA right lower extremity. Mild edema left lower extremity Psych Other: Flat affect Assessment and Plan Assessment and Plan (1) Colonic mass: Status: Acute Orders: Orders: Comprehensive Metabolic Profil Today Partial Thromboplast Time Today CBC W/Diff, Automated Today Chest PA and Lateral Today (2) benign tremor: Status: Chronic (3) diabetes mellitus type II: Status: Chronic (4) hypertension: Status: Chronic (5) History of prostate cancer: Status: Chronic (6) Anemia: Status: Acute Qualifiers: Anemia type: unspecified type Qualified Code(s): D64.9 - Anemia, unspecified (7) Left leg swelling: Status: Acute Orders: Orders: Venous Duplex US, Unilateral Today Partial Thromboplast Time Today Prothrombin Time w/INR Today (8) History of DVT (deep vein thrombosis): Status: Acute (9) Colonic obstruction: Status: Acute Plan Details Additional Comments: 81-year-old gentleman who presents with a very complex set of problems. He has been ill lately since December. Has had weight loss. He has essentially stopped eating and drinking. He stopped all of his medications over a month ago. 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 There is evidence of high-grade obstruction with notable dilatation of the colon proximally. Patient has a flat affect. He by report from his does as he pleases. It is not clear whether he will take the bowel prep medication is recommended. It is actually not clear at the moment that he will proceed with diagnostic interventions or definitive surgery. I propose for him attempting a esophagogastroduodenoscopy with possible biopsy and colonoscopy with possible biopsy or polypectomy as indicated. I described technique, benefit, risk, alternatives. The upper endoscopy will help assist as to whether there is through and through erosion into the stomach. The colonoscopy hopefully be able to do define pathology. Currently the [facility] has a limit on the number of patients it can be admitted for overnight stay. The earliest they that I am being offered is 04/29/2021. I am at this point anticipating potentially a laparoscopic mobilization of the right colon and transverse colon with a extended right colectomy and hopefully a primary anastomosis though absolutely no guarantees of success have been offered. If there is stomach involvement that this likely will need to be converted to an open approach. We will not be able to follow typical EUS protocols because of the patient's high-grade obstructive symptoms. I likely will try to use a laparoscopically placed tap block. I will have him return to my office on Monday, Apr 26 to further discussion treatment options. Apparently the and daughter did inquire about nonsurgical options i.e. palliative care or hospice. Hopefully they will come to a conclusion regarding this subsequent to his endoscopy tomorrow and over the weekend. I have expressed to the patient and his family members that I consider these interventions to be very high risk for him. I plan on obtaining laboratory including a complete metabolic profile, CBC, CEA, PTT INR, PA and lateral chest x-ray. He is at high risk for converting to a complete colonic obstruction. He is at high operative risk for definitive care. He has left lower extremity swelling and a history of lower extremity DVT. I will obtain a venous duplex exam of the left lower extremity. Patient and family members have had an opportunity to ask and have questions answered. We are trying to expedite his care. Copy: Dr. Vipin English M.D., F.A.C.S. Coding Level of Care Code 33287 Diagnoses Colonic mass K63.89 benign tremor diabetes mellitus type II hypertension History of prostate cancer Z85.46 Anemia D64.9 Anemia type: unspecified type Left leg swelling M79.89 History of DVT (deep vein thrombosis) Z86.718 Colonic obstruction K56.609 It is of note that the patient had a venous duplex exam of his left lower extremity yesterday positive for DVT. He was initiated on therapeutic Lovenox therapy. He presents today for a combined esophagogastroduodenoscopy and colonoscopy. He is also scheduled next week to have a vena cava filter placed prior to anticipated: And possible gastric surgery. He was noted to be mildly dehydrated on screening laboratory. He will receive an additional liter of 0.9% saline. He will receive saline enemas to assist with cleansing of his left colon. We will try to proceed with a combined EGD colonoscopy. Vince English M.D., F.A.C.S.
[2021-04-23 09:21] LABS: Bedside Glucose 180 mg/dL (70-110)
--- NOTE | 2021-04-23 10:30 | IMM_PTH ---
PATIENT: VIKRAM PORTER LOC: [facility] U#:[id number] AGE/SX: 81/M ROOM: RE04/23/[address]: Dr. Vince English MD : 1940 BED: DIS: 04/23/2021 SPEC #: [id number] RECD: 04/23/21 13:05 STATUS: BELEM RERicardo #: [id number] MANISHA: 04/23/21 10:[address]: Vince English DEPT: IMMUNOHISTOCHEMISTRY RECD BY: Sarah Winn ENTERED: 04/23/21 13:06 SP TYPE: IMMUNO OTHR DR: Dr. Vipin Martin MD Tissues: A - Stomach, NOS Procedures: H Pylori (initial) PHYSICIAN & INSTITUTION [place] [address] SPECIMEN INFORMATION: Tissue Source: A ? Antrum biopsy Clinical Info: Colonic obstruction Specimen Number: [id number] CPT code: 63462 METHODOLOGY: Deparaffinized sections of prefer/formalin-fixed tissue or PAP/DQ stained slides are incubated with monoclonal/polyclonal antibodies/oligonucleotide probes. Localization is made via biotin free immunoperoxidase method. Appropriate controls are performed and reacted as expected. Results on target cell population are indicated in the following table: RESULTS: ANTIBODY / CLONE RESULT Block A H Pylori (polyclonal) negative These tests were developed and their performance characteristics determined by [facility]. They may not have been cleared or approved by the U.S. Food and Drug Administration. The FDA has determined that such clearance or approval is not necessary. INTERPRETATION: A. Antrum biopsy: Negative for Helicobacter pylori organisms. AM:margie 04/27/2021
--- NOTE | 2021-04-23 11:09 | OP.CCLET_ITS ---
04/23/2021 Vipin Martin [address] [place] [address] Re : Upper GI endoscopy procedure for Aramis Marcus Dear Dr. Martin This procedure was performed on Friday, April 23, 2021. My impressions and recommendations are as follows: Impressions : - Reflux esophagitis. Biopsied. - Small hiatal hernia. - Texture changed mucosa in the lesser curvature. Biopsied. - Erythematous mucosa in the antrum. Biopsied. - Normal examined duodenum. Recommendations : - Discharge patient to home. - Clear liquid diet. - Continue present medications. - Return to my office in 2 days. My findings are described in the full procedure note, which is enclosed. If I can be of further assistance, please feel free to contact me at Doctor phone number(s): Work: . Sincerely, Vince English MD 04/23/2021 11:09:10 AM This report has been signed electronically.
--- NOTE | 2021-04-23 11:09 | OP.EGD_ITS ---
Patient Name: Aramis Marcus Procedure Date: 04/23/2021 10:23 AM Date of : 1940 Age: 81 Procedure: Upper GI endoscopy Indications: Epigastric abdominal pain Providers: Vince English MD Medicines: See the Anesthesia note for documentation of the administered medications Complications: No immediate complications. Procedure: Pre-Anesthesia Assessment: - Prior to the procedure, a History and Physical was performed, and patient medications and allergies were reviewed. The patient's tolerance of previous anesthesia was also reviewed. The risks and benefits of the procedure and the sedation options and risks were discussed with the patient. All questions were answered, and informed consent was obtained. Prior Anticoagulants: The patient has taken no previous anticoagulant or antiplatelet agents. ASA Grade Assessment: IV - A patient with severe systemic disease that is a constant threat to life. After reviewing the risks and benefits, the patient was deemed in satisfactory condition to undergo the procedure. After obtaining informed consent, the endoscope was passed under direct vision. Throughout the procedure, the patient's blood pressure, pulse, and oxygen saturations were monitored continuously. The gastroscope was introduced through the mouth, and advanced to the second part of duodenum. The upper GI endoscopy was accomplished without difficulty. The patient tolerated the procedure well. Scope In: 10:39:20 AM Scope Out: 10:46:19 AM Total Procedure Duration Time 0 hours 6 minutes 59 seconds Findings: Esophagitis with no bleeding was found 36 cm from the incisors. Biopsies were taken with a cold forceps for histology. A small hiatal hernia was present. Localized moderate mucosal changes characterized by altered texture were found on the lesser curvature of the stomach. Biopsies were taken with a cold forceps for histology. Diffuse mildly erythematous mucosa without bleeding was found in the gastric antrum. Biopsies were taken with a cold forceps for histology. The examined duodenum was normal. A few sessile polyps with no bleeding and no stigmata of recent bleeding were found in the gastric fundus. The polyp was removed with a cold biopsy forceps. Resection and retrieval were complete. Impression: - Reflux esophagitis. Biopsied. - Small hiatal hernia. - Texture changed mucosa in the lesser curvature. Biopsied. - Erythematous mucosa in the antrum. Biopsied. - Normal examined duodenum. Recommendation: - Discharge patient to home. - Clear liquid diet. - Continue present medications. - Return to my office in 2 days. Procedure Code(s): --- Professional --- 26977, Esophagogastroduodenoscopy, flexible, transoral; with biopsy, single or multiple Diagnosis Code(s): --- Professional --- K21.0, Gastro-esophageal reflux disease with esophagitis K44.9, Diaphragmatic hernia without obstruction or gangrene K31.89, Other diseases of stomach and duodenum R10.13, Epigastric pain CPT copyright 2017 [employer]. All rights reserved. The codes documented in this report are preliminary and upon photo retoucher review may be revised to meet current compliance requirements. Vince English MD 04/23/2021 11:09:10 AM This report has been signed electronically. Number of Addenda: 0 Note Initiated On: 04/23/2021 10:23 AM
--- NOTE | 2021-04-23 11:15 | SUR.PHASEI ---
DR SCHUSTER AT BEDSIDE DISCUSSING FINDINGS WITH PATIENT'S AND DAUGHTER. THIS RN THEN SPENT APPROX [address] SCHUSTER'S FINDINGS AND CONCERNS. VERY ANXIOUS, FRUSTRATED.
--- NOTE | 2021-04-23 11:24 | OP.COLON_ITS ---
Patient Name: Aramis Marcus Procedure Date: 04/23/2021 10:47 AM Date of : 1940 Age: 81 Procedure: Colonoscopy Indications: Abnormal CT of the GI tract Providers: Vince English MD Medicines: See the Anesthesia note for documentation of the administered medications Patient Profile: Last Colonoscopy: more than 10 years ago. Complications: No immediate complications. Procedure: Pre-Anesthesia Assessment: - Prior to the procedure, a History and Physical was performed, and patient medications and allergies were reviewed. The patient's tolerance of previous anesthesia was also reviewed. The risks and benefits of the procedure and the sedation options and risks were discussed with the patient. All questions were answered, and informed consent was obtained. Prior Anticoagulants: The patient has taken no previous anticoagulant or antiplatelet agents. ASA Grade Assessment: IV - A patient with severe systemic disease that is a constant threat to life. After reviewing the risks and benefits, the patient was deemed in satisfactory condition to undergo the procedure. After I obtained informed consent, the scope was passed under direct vision. Throughout the procedure, the patient's blood pressure, pulse, and oxygen saturations were monitored continuously. The Colonoscope was introduced through the anus and advanced to the transverse colon. The colonoscopy was performed with moderate difficulty due to inadequate bowel prep and poor endoscopic visualization. The patient tolerated the procedure well. The quality of the bowel preparation was poor. Scope In: 10:49:19 AM Scope Out: 10:57:42 AM Total Procedure Duration Time 0 hours 8 minutes 23 seconds Findings: The perianal and digital rectal examinations were normal. A large amount of stool was found in the distal transverse colon, precluding visualization. The exam was otherwise without abnormality. Impression: - Preparation of the colon was poor. - Stool in the distal transverse colon. - The examination was otherwise normal. - No specimens collected. Recommendation: - Discharge patient to home. - Clear liquid diet. - Continue present medications. - Return to my office in 2 days. - - No recommendation at this time regarding repeat colonoscopy due to advanced disease process at this time}. Procedure Code(s): --- Professional --- 44013, 53, Colonoscopy, flexible; diagnostic, including collection of specimen(s) by brushing or washing, when performed (separate procedure) Diagnosis Code(s): --- Professional --- R93.3, Abnormal findings on diagnostic imaging of other parts of digestive tract CPT copyright 2017 [employer]. All rights reserved. The codes documented in this report are preliminary and upon office assistance review may be revised to meet current compliance requirements. Vince English MD 04/23/2021 11:24:29 AM This report has been signed electronically. Number of Addenda: 0 Note Initiated On: 04/23/2021 10:47 AM
--- NOTE | 2021-04-23 11:25 | OP.CCLET_ITS ---
04/23/2021 Vipin Martin [address] [place] [address] Re : Colonoscopy procedure for Aramis Marcus Dear Dr. Martin This procedure was performed on Friday, April 23, 2021. My impressions and recommendations are as follows: Impressions : - Preparation of the colon was poor. - Stool in the distal transverse colon. - The examination was otherwise normal. - No specimens collected. Recommendations : - Discharge patient to home. - Clear liquid diet. - Continue present medications. - Return to my office in 2 days. - - No recommendation at this time regarding repeat colonoscopy due to advanced disease process at this time Vince English MD 04/23/2021 11:24:29 AM This report has been signed electronically.
[2021-04-23] MEDS: Lactated Ringers 1,000 ML 999 ML IV (12:33)
--- NOTE | 2021-04-23 13:58 | SUR.PHASEII ---
Incontinence episode; phase 2 in bed. This nurse changed soiled gown. brief placed on patient. patient tolerated.
--- NOTE | 2021-04-23 14:45 | SUR.PHASEII ---
awaiting patient to pass gas
[2021-04-23 16:01] LABS: Bedside Glucose 175 mg/dL (70-110)
== END 2021-04-23 17:07 ==
LOC: EN 08:30 → AC 08:31
PROVIDERS: PCP Internal Medicine; Referring Provider Internal Medicine; Visit Provider Surgery
PROC: 0DJD8ZZ Inspection of Lower Intestinal Tract, Via Natural or Artificial Opening Endoscopic (ICD-10-PCS; CPT 45378; principal; 2021-04-23 10:25)
DX: K29.50 Unspecified chronic gastritis without bleeding (principal); K31.7 Polyp of stomach and duodenum; K21.00 Gastro-esophageal reflux disease with esophagitis, without bleeding; K44.9 Diaphragmatic hernia without obstruction or gangrene; G31.09 Other frontotemporal neurocognitive disorder; F02.80 Dementia in other diseases classified elsewhere, unspecified severity, without behavioral disturbance, psychotic disturbance, mood disturbance, and anxiety; E11.9 Type 2 diabetes mellitus without complications; I10 Essential (primary) hypertension; D64.9 Anemia, unspecified; G25.0 Essential tremor; Z86.718 Personal history of other venous thrombosis and embolism; Z89.511 Acquired absence of right leg below knee; Z85.46 Personal history of malignant neoplasm of prostate; Z79.899 Other long term (current) drug therapy
CPT/HCPCS: 43239; 45378; 82962; 88305; 88312; 88342; J7040; J7120; J2405

== ENCOUNTER 2021-04-26 11:08 | Day surgery (SDC) | payer MEDICARE, SELFPAY ==
[2021-04-23 08:39] VITALS: BMI 25.3
--- NOTE | 2021-04-26 11:18 | PCM.HP.BLA ---
History and Physical Date of Admission: 04/26/21 Intake Intake Visit Reasons: Discuss surgery Chief Complaint: c-scope Allergies No Known Allergies Allergy (Verified 04/26/21 10:28) Medications coenzyme Q10 [Co Q-10] 100 mg PO DAILY 03/13/14 [History Confirmed 04/26/21] vitamin B complex 1 cap PO DAILY 08/17/16 [History Confirmed 04/26/21] Advanced Memory Formula 1 tablet DAILY 11/27/18 [History Confirmed 04/26/21] propranolol 20 mg PO TID 11/27/18 [History Confirmed 04/26/21] enoxaparin 80 mg/0.8 mL subcutaneous syringe 80 mg SUBCUT Q12H #12 dose 04/22/21 [Rx Confirmed 04/26/21] PFSH Medical History Cancer Colonic mass Colonic mass Colonic mass Dementia Diabetes DVT (deep venous thrombosis) Essential tremor Gastric reflux History of renal disease Hypertension Rash Subdural hematoma Walker as ambulation aid Surgical History History of superior vena cava filter placement S/P craniotomy S/P lower limb amputation S/P prostatectomy Family History Mother Hypertension CAD (coronary artery disease) Social History Smoking Status: Never smoker alcohol intake: current HPI HPI HPI: VIKRAM PORTER, is a 81 M who presents to the office today for surgical follow-up of his combined esophagogastroduodenoscopy and colonoscopy that I performed for him on April 23, 2021. The upper endoscopy demonstrated a deformity at the lesser curve with some retraction but I could not identify a mass. He had a small hiatal hernia. Few scattered polyps. Some reflux esophagitis. The colonoscopy was performed to the splenic flexure at that point the bowel prep failed. Was not able to proceed any further. He was discharged on a clear liquid diet. He presents now to proceed today with placement of a inferior vena cava filter as he is also been detected acutely is having a left common femoral vein deep venous thrombosis. He was initiated on therapeutic's Lovenox therapy. It is anticipated that on April 29, 2021 that we attempt a extended right colectomy. There is concerned that there is attachment to the stomach as well. At the time of his endoscopy he received 3 L of IV fluid. He was felt to be mildly dehydrated. Laboratory as of April 22, 2021 shows a white count of 8.4 with a hemoglobin 13.7 hematocrit 42.5 platelet count 3 and 26,000. Coags were normal. BUN 21 with a creatinine of 1.65. Glucose was elevated at 174. 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 Patient is referred by Dr. Martin and written copy my surgical consult recommendations would return to him. The patient is accompanied by his and daughter. Get a consistent history from the patient is very very difficult. Apparently he vomited stool-like material 01/09/2021. He has not been feeling well markedly diminished appetite and constant nausea. Most recent colonoscopy apparently 15 years ago. He will not eat he will not take fluids he has stopped his medication over a month ago. On 03/22/2021 he had a upper GI small bowel follow-through at the [facility]. Gastroesophageal reflux disease. No acute small bowel issues. At the [facility] on 04/15/[address] scan of the abdomen and pelvis. 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 Left kidney cystic structure. There is a 3.3 cm segment of distal transverse colon the left hemiabdomen abdomen with marked narrowing adjacent fat stranding as well as upstream colonic dilatation with air-fluid levels. The stranding goes to the level of the gastric antrum. This is highly suspicious for neoplasm. There is concerned about inferior aspect of the gastric antrum from possibly involved as well. The patient's had a previous history of a right leg fracture as best I can tell. He says it turns into gangrene. He had a have a right below-knee amputation. He also apparently had a subdural hematoma. He then had a rebleed. Apparently because of a DVT had a have a IVC filter placed. According to the that IVC filter has been removed. The patient has noted swelling of his left leg. The patient has felt very fatigued. Apparently he is known to be anemic with worsening anemia. He has had very little activity. He does not feel that he has been exposed to COVID-19. He has been vaccinated. After stopping all of his medications they still been checking his blood sugar ranging approximately 160. His antihypertensives were stopped because he has not been taking fluid and he has been hypotensive. He has had a history of prostate cancer and a radical prostatectomy. He apparently had recurrent disease and had to have radiation treatment ROS General General: Yes weight change, appetite and fatigue; No colon cancer, breast cancer or weakness HEENT HEENT: No difficulty swallowing, eye injury, eye surgery, swollen glands or hoarseness Endo Endocrine: Yes diabetes mellitus; No thyroid disease, thyroid cancer, Hair loss, heat intolerance or cold intolerance Skin Skin: No rash or changing moles Breast Breast: No left breast lump, right breast lump, nipple discharge, breast pain, abnormal mammogram, abnormal US or breast enlargement Musc Musculoskeletal: No back problems, arthritis, rheumatoid arthritis, gout or joint pain Cardio Cardiovascular: Yes high blood pressure; No murmur, pacemaker, heart disease, atrial fibrillation, heart attack, heart stent, palpitations, shortness of breat with exertion or chest pain Psych Psychiatric: Yes depression; No anxiety or hearing voices Resp Respiratory: No shortness of breath, Yes sleep apnea, No cough, No COPD, No asthma, No emphysema and No wheezing Gastro Gastrointestinal: No abdominal pain, Yes nausea or vomiting, Yes diarrhea, Yes constipation, No blood in stool, Yes acid reflux, No hemorrhoids, No ulcers, No gallbladder problem and No black,tarry stools Joseph Hematologic: No blood thinners, No blood disorders, No bleeding, Yes anemia and No blood clots Neuro Neurologic: No system reviewed and no additional complaints, except as documented, No as per HPI, No abnormal gait, No abnormal hearing, No abnormal movements, No abnormal speech, No behavioral changes, No burning sensations, No confusion, No convulsions, No disequilibrium, No dizziness, No localized weakness, No frequent falls, No headache(s), No lack of coordination, No loss of vision, No memory loss, No numbness, No other visual disturbances, No radicular pain, No restless legs, No sensory deficit, No syncope, No tingling, No tremor(s), No weakness and No other Exam Const Other: The patient has essential tremors. He appears to be every bit of 81 years of age. Somewhat hunched over frail in appearance. He is currently denying pain. HENWI Other: Disheveled hair Eyes General: appearance normal, both eyes and all related structures Chest Chest palpation & inspection: normal inspection of the chest Other: Kyphosis, adequate inspiration Resp Auscultation: clear to auscultation bilaterally Cardio Rate: regular rate Rhythm: regular rhythm GI Other: Soft, doughy, seeming enlargement of the right bowel noted but not tender, bowel sounds present with some occasional tinkles, well-healed infraumbilical midline incision, fibrofatty fullness left lower quadrant Musc Other: Cervical kyphosis Skin Other: Light petechial rash left pretibia. 1+ pitting edema. Right BKA Neuro Other: Severe tremors of his hands and legs Extrem Other: BKA right lower extremity. Mild edema left lower extremity Psych Other: Flat affect Assessment and Plan Assessment and Plan (1) Colonic mass: Status: Acute Orders: Orders: Comprehensive Metabolic Profil Today Partial Thromboplast Time Today CBC W/Diff, Automated Today Chest PA and Lateral Today (2) benign tremor: Status: Chronic (3) diabetes mellitus type II: Status: Chronic (4) hypertension: Status: Chronic (5) History of prostate cancer: Status: Chronic (6) Anemia: Status: Acute Qualifiers: Anemia type: unspecified type Qualified Code(s): D64.9 - Anemia, unspecified (7) Left leg swelling: Status: Acute Orders: Orders: Venous Duplex US, Unilateral Today Partial Thromboplast Time Today Prothrombin Time w/INR Today (8) History of DVT (deep vein thrombosis): Status: Acute (9) Colonic obstruction: Status: Acute Plan Details Additional Comments: 81-year-old gentleman who presents with a very complex set of problems. He has been ill lately since December. Has had weight loss. He has essentially stopped eating and drinking. He stopped all of his medications over a month ago. 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 There is evidence of high-grade obstruction with notable dilatation of the colon proximally. Patient has a flat affect. He by report from his does as he pleases. It is not clear whether he will take the bowel prep medication is recommended. It is actually not clear at the moment that he will proceed with diagnostic interventions or definitive surgery. I propose for him attempting a esophagogastroduodenoscopy with possible biopsy and colonoscopy with possible biopsy or polypectomy as indicated. I described technique, benefit, risk, alternatives. The upper endoscopy will help assist as to whether there is through and through erosion into the stomach. The colonoscopy hopefully be able to do define pathology. Currently the [facility] has a limit on the number of patients it can be admitted for overnight stay. The earliest they that I am being offered is 04/29/2021. I am at this point anticipating potentially a laparoscopic mobilization of the right colon and transverse colon with a extended right colectomy and hopefully a primary anastomosis though absolutely no guarantees of success have been offered. If there is stomach involvement that this likely will need to be converted to an open approach. We will not be able to follow typical EUS protocols because of the patient's high-grade obstructive symptoms. I likely will try to use a laparoscopically placed tap block. I will have him return to my office on Monday, Apr 26 to further discussion treatment options. Apparently the and daughter did inquire about nonsurgical options i.e. palliative care or hospice. Hopefully they will come to a conclusion regarding this subsequent to his endoscopy tomorrow and over the weekend. I have expressed to the patient and his family members that I consider these interventions to be very high risk for him. I plan on obtaining laboratory including a complete metabolic profile, CBC, CEA, PTT INR, PA and lateral chest x-ray. He is at high risk for converting to a complete colonic obstruction. He is at high operative risk for definitive care. He has left lower extremity swelling and a history of lower extremity DVT. I will obtain a venous duplex exam of the left lower extremity. Patient and family members have had an opportunity to ask and have questions answered. We are trying to expedite his care. Copy: Dr. Vipin English M.D., F.A.C.S. Coding Level of Care Code 08947 Diagnoses Colonic mass K63.89 benign tremor diabetes mellitus type II hypertension History of prostate cancer Z85.46 Anemia D64.9 Anemia type: unspecified type Left leg swelling M79.89 History of DVT (deep vein thrombosis) Z86.718 Colonic obstruction K56.609 It is of note that the patient had a venous duplex exam of his left lower extremity yesterday positive for DVT. He was initiated on therapeutic Lovenox therapy. He presents today for a combined esophagogastroduodenoscopy and colonoscopy. He is also scheduled next week to have a vena cava filter placed prior to anticipated: And possible gastric surgery. He was noted to be mildly dehydrated on screening laboratory. He will receive an additional liter of 0.9% saline. He will receive saline enemas to assist with cleansing of his left colon. We will try to proceed with a combined EGD colonoscopy. Vince English M.D., F.A.C.S. Assessment and Plan Assessment and Plan (1) Colonic obstruction: Status: Acute (2) History of DVT (deep vein thrombosis): Status: Acute Plan - Dr. Vince English MD: Today was a verbal consultative appointment with family members occluding the patient and his and 2 daughters. We discussed treatment options and anticipations and expectations. We discussed palliative treatment options versus surgical intervention. We discussed possibility of diagnostic laparoscopy with possible diverting ileostomy possible extended right colectomy and possible partial gastrectomy. I would anticipate possibly a tap block. No guarantees of success have been offered. This would be in deference to nonoperative intervention and palliative care. The patient apparently took very little liquid and on Monday but did better on Monday. He has had some liquid stool. He denies current vomiting. He denies current abdominal pain. Questions were offered was as to whether oncology could assist. Without tissue sampling I do not think that they would be able to offer much at this time. Radiation would not be an option due to the almost complete large bowel obstruction. I was not able to visualize the tumor so stenting would not be an option. After extensive discussion the patient and family members have elected to proceed. With that in mind the patient has a left common femoral DVT. I anticipate placing an inferior vena cava filter today as preoperative management. Copy: Dr. Vipin English M.D., F.A.C.S. Plan Details Other Orders: Orders: Carcinoembryonic Antigen Today C18.9 Coding Level of Care Code Off vis,est,level 2 Diagnoses Colonic obstruction K56.609 History of DVT (deep vein thrombosis) Z86.718 04/26/21 1116<Electronically signed by Vince English MD>Date Vince English MD Patient seen today in office. No changes Vince English M.D., F.A.C.S.
--- NOTE | 2021-04-26 13:02 | PCM.OPRPT ---
Problems Associated Problem List Diagnoses (1) Acute deep venous thrombosis: Report of Operation Date of Procedure: 04/26/21 Pre-Operative Diagnosis: Acute deep venous thrombosis left common femoral vein Post-Operative Diagnosis: Same Surgery/Procedure Performed:: Right internal jugular inferior venacavogram with inferior vena cava Rusk filter placement Description of Surgical Findings:: Timeout and informed consent was obtained. 81-year-old gentleman was taken to the special procedures lab. He was placed supine on the table. The right neck was sterilely prepped and draped. Under ultrasound guidance 2% lidocaine was instilled as a local anesthetic. A total of 3 cc was used. Local was instilled and then ultrasound guidance micropuncture needle inserted into the right internal jugular vein followed by micropuncture wire micropuncture sheath 035 J-wire and a 5 Azerbaijani short sheath was inserted. Using a universal flush catheter an 035 J-wire access was gained to the inferior vena cava right common iliac vein. Flush catheter was placed. Using Isovue contrast at a rate of 15 cc a second for 15 cc an inferior venacavogram was obtained. The inferior venacavogram highlighted the right common iliac. Origin of the right renal vein. No evidence of intraluminal thrombus. The vena cava appear to be of adequate for filter placement. Site of flush catheter was removed. A 9 Azerbaijani sheath was placed to predilate. The 8 Azerbaijani delivery mechanism was inserted. The jugular approach Rusk filter was inserted and deployed so that the apex was close to the origin of the right renal vein. There appeared to be good positioning. The delivery mechanism was removed and gentle pressure held upon the right neck. Telfa OpSite dressing applied. No apparent complication he tolerated the procedure well. Impression: Unremarkable inferior venacavogram. Successful placement of the Blanca inferior vena cava filter. It is of note that the origin of the left common iliac vein was not identified. Surgeon: Vince English Type of Anesthesia: Local
[2021-04-27 11:24] LABS: Carcinoembryonic Antigen 9.3 ng/mL (0.0-4.7)
== END 2021-04-26 14:30 | disposition home or self-care (01) ==
LOC: CLSP 11:09
PROVIDERS: PCP Internal Medicine; Referring Provider Surgery; Visit Provider Surgery
DX: I82.412 Acute embolism and thrombosis of left femoral vein (principal); C18.9 Malignant neoplasm of colon, unspecified; F03.90 Unspecified dementia, unspecified severity, without behavioral disturbance, psychotic disturbance, mood disturbance, and anxiety; E11.9 Type 2 diabetes mellitus without complications; I10 Essential (primary) hypertension; D64.9 Anemia, unspecified; Z79.02 Long term (current) use of antithrombotics/antiplatelets; Z79.899 Other long term (current) drug therapy
CPT/HCPCS: 36415; 37191; 76937; 82378; J7040; Q9967; C1769; C1880

== ENCOUNTER 2021-04-29 06:59 | Inpatient (IN) | payer MEDICARE, SELFPAY ==
--- NOTE | 2021-04-28 14:02 | EKG12_ITS ---
Test Reason : PRE OP Blood Pressure : / mmHG Vent. Rate : 058 BPM Atrial Rate : 057 BPM P-R Int : 000 ms QRS Dur : 082 ms QT Int : 390 ms P-R-T Axes : 000 -29 010 degrees QTc Int : 382 ms Sinus vs Ectopic Atrial Rhythm Abnormal ECG Confirmed by SLOANE CALDWELL, TWIN ([id number]), editor publications JAMIR WILKINS ([id number]) on 04/29/2021 9:25:55 AM Referred By: MARIELY Confirmed By:TWIN ANTON MD
[2021-04-28 15:36] LABS: Hemoglobin A1c 5.7 % (3.8-5.6)
[2021-04-29] VITALS (16 sets, daily range): BP systolic 97–133; BP diastolic 59–82; PULSE 60–98; RESP 16–18; TEMP 35.6–36.8; O2SAT 93–100; BMI 26.6; BMI 26.2
--- NOTE | 2021-04-29 | IMM_PTH ---
PATIENT: VIKRAM PORTER LOC: ICU U#:[id number] AGE/SX: 81/M ROOM: ICU04 RE04/29/[address]: Dr. Inna Story MD : 1940 BED: 1 DIS: 05/06/2021 SPEC #: [id number] RECD: 05/04/21 14:34 STATUS: SOUNargis REQ #: [id number] MANISHA: 04/29/21 00:[address]: Vince English DEPT: IMMUNOHISTOCHEMISTRY RECD BY: Sarah Winn ENTERED: 05/04/21 14:36 SP TYPE: IMMUNO OTHR DR: MD Dr. Inna Kern MD Dr. Christine Lee, DO MD Dr. Aurelia Espinoza, DO MD Rod Rao MD Dr. Eric Jopperi, DO MD Dr. Jose Whitaker MD Dr. Joseph Agyepong, MD Dr. James Mooney, MD Dr. Jonathan Vogt, DO Dr. Margo Torres, DO Dr. Yan Devries, DO MD Dr. Cory Harvey MD Dr. Nhan Luu, MD Dr. Prakash Chand, MD Dr. Paul Nielsen, MD Dr. Robert Leininger, MD Dr. Victor Velasquez, MD Barbara Tickton, SENIOR RESTAURANT MANAGER-C Key Good, SENIOR RESTAURANT MANAGER-C Danielle Kidd, SENIOR RESTAURANT MANAGER-C Yan Galan, SENIOR RESTAURANT MANAGER-C OLIVIA Maxwell PA Tissues: Colon, NOS Procedures: MSH2 (add) MLH-1 (add) MSH6 (add) Anti-PMS2 (add) RANKIN-2 (add) KI-67 (add) P53 (add) HER-2-MANNY (initial) [facility] [address] [address] SPECIMEN INFORMATION: Tissue Source: Right colon, transverse colon, part of stomach Clinical Info: Colonic mass Specimen Number: [id number] #[id number] CPT code: 56205, 25309 x7 METHODOLOGY: Deparaffinized sections of prefer/formalin-fixed tissue or PAP/DQ stained slides are incubated with monoclonal/polyclonal antibodies/oligonucleotide probes. Localization is made via biotin free immunoperoxidase method. Appropriate controls are performed and reacted as expected. Results on target cell population are indicated in the following table: RESULTS: ANTIBODY / CLONE RESULT Block 8 Ki-67 (30-9) positive, high P53 (DO-7) positive RANKIN-2 (SP21) positive MLH-1 (M1) positive, weak MSH2 (25D12) positive MSH6 (44) positive PMS2 (XPJ9181) positive Her-2neu (CB11) negative These tests were developed and their performance characteristics determined by [facility]. They may not have been cleared or approved by the U.[place]. Food and Drug Administration. The FDA has determined that such clearance or approval is not necessary. The above immunohistochemical/dualISH markers are ordered and reviewed by the Pathologist. INTERPRETATION: Right colon, transverse colon, part of stomach: Invasive adenocarcinoma Result of Microsatellite Instability Study: Negative (no loss of mismatch protein; no microsatellite instability detected). SJ:daiaan 05/05/21
--- NOTE | 2021-04-29 | COL._PTH ---
PATIENT: VIKRAM PORTER LOC: ICU U#:[id number] AGE/SX: 81/M ROOM: ICU04 RE04/29/[address]: Dr. Inna Story MD : 1940 BED: 1 DIS: 05/06/2021 SPEC #: [id number] RECD: 04/29/21 15:30 STATUS: BELEM RE #: [id number] MANISHA: 04/29/21 00:[address]: Vince English DEPT: SURGICAL PATHOLOGY RECD BY: Mercedez Burleson ENTERED: 04/30/21 10:46 SP TYPE: COLON OTHR DR: MD Dr. Inna Kern MD Dr. Christopher Ranney, MD Dr. Mary Catherine Sementi, MD Rod Baez Dr., MD Dr. Eric Jopperi, MD Dr. Jose Parker Dr., MD Dr. Joseph Agyepong, MD Dr. James Mooney, MD Dr. Jonathan Vogt, DO Dr. Kathryn Lee, DO Dr. Mark Tereletsky, DO Dr. Nana Yaa Koram, MD Dr. Nicholas F Kotsonis, MD Dr. Nhan Luu, MD Dr. Prakash Chand, MD Dr. Paul Nielsen, MD Dr. Robert D Cebul, MD Dr. Victor Velasquez, MD Barbara Tickton, LABORATORY SAMPLER-C Key Good, LABORATORY SAMPLER-Deann Kidd, KAVITHA-Deann Galan, LABORATORY SAMPLER-C OLIVIA Maxwell PA Tissues: Colon, NOS Procedures: Surgery Specimen Level Comments: @ Ordering doctor for SUVI edited from to @ by CAS at 04/30/21 1528 @ Submitting doctor edited from to @ bernabe CARDOZO at 04/30/21 1528 HEADER OPERATION: Extended right colectomy, transverse en bloc with partial PRE-OP DIAGNOSIS: Colonic mass TISSUE SUBMITTED: Right colon, transverse colon, part of stomach MICROSCOPIC DIAGNOSIS Right colon, transverse colon, part of stomach, extended right colectomy, transverse en bloc with partial stomach resection: 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 Seven out of seven lymph nodes negative for carcinoma. See cancer summary in the comment section. SJ:rg 05/04/2021 COMMENT COLON CANCER SUMMARY Procedure: Extended right hemicolectomy and transverse colectomy and partial stomach resection Tumor site: Transverse colon Tumor size: 3.6 x 3 cm Macroscopic tumor perforation: Not identified Histologic type: Adenocarcinoma Histologic grade: Grade 2 (moderately differentiated) Tumor extension: Tumor directly invades adjacent structure (stomach). Margins: All margins are uninvolved by invasive carcinoma, high grade dysplasia, intramucosal adenocarcinoma and adenoma. The tumor is 8 cm away from the distal resection margin. Treatment effect: No known presurgical therapy. Lymphvascular invasion: Not identified Perineural invasion: Not identified Type of polyp in which invasive carcinoma arose: Tubular adenoma Tumor deposits: Not identified Regional lymph nodes: Number of lymph nodes examined: 7 Number of lymph nodes involved: 0 Ancillary studies: IHC for mismatch repair of protein/ microsatellite instability ([id number]) will be performed and results will be reported separately. Additional pathologic findings: - Appendix - no pathologic diagnosis. - Dilated transverse and right colon. PATHOLOGIC STAGE: pT4b pN0 pMx The above summary is in compliance with [employer] (CAP) Cancer Protocols Checklist and [place] Joint Committee on Cancer (AJCC), Staging Manual, 8th Ed. Case has been reviewed in consultation with Dr. Ness who concurs with the above diagnosis. IDC:AM MICROSCOPIC DESCRIPTION Slides are reviewed. GROSS DESCRIPTION Received in fixative is one container labeled with the patient's name and designated right colon, transverse colon, part of stomach. The specimen consists of an 8 cm segment of small bowel with attached 43 cm segment of large bowel. Located approximately 8 cm from the distal colon margin is an apple core lesion measuring 3.6 x 3 cm and occupying 100% of the circumference of the bowel with only a pinpoint opening and the serosa in the area of mass is indurated. Adherent to the serosal aspect of this area is a portion of stomach measuring 7 x 2 x 2 cm. An appendix is attached that measures 5.5 cm in length and 1 cm in average diameter. The large bowel for the most part is grossly dilated proximal to the mass and measures 20 cm in greatest circumference. No other mucosal mass lesions are identified. Serial sections through the mass reveal extensive subserosal fatty tissue and grossly involving portion of stomach. The attached fibrofatty tissue contains a number of grossly unremarkable lymph nodes. Load Test Mechanic sections are submitted as follows: 1 - mucosal margins of excision, 2 - ileocecal valve, 3??uninvolved portions of small and large bowel to stomach, 4 - appendix, 5-8 - colonic mass, 9 & 10 - full thickness of mass from colon to stomach, red ink represents line of amputation, 11 & 12 - full thickness mass from colon to stomach, red ink represents line of amputation, 13 & 14 multiple lymph nodes. / AM:margie 05/03/21 TC:0 CPT: 38042
[2021-04-29] MEDS: 0.9% Normal Saline 1,000 ML 50 ML IV (08:14)
[2021-04-29] MEDS: Lactated Ringers 1,000 ML 15 ML IV (08:16)
[2021-04-29 08:30] LABS: Bedside Glucose 103 mg/dL (70-110)
--- NOTE | 2021-04-29 10:35 | PCM.HP.BLA ---
History and Physical Date of Admission: 04/29/21 Intake Intake Visit Reasons: Discuss surgery Chief Complaint: c-scope Allergies No Known Allergies Allergy (Verified 04/26/21 10:28) Medications coenzyme Q10 [Co Q-10] 100 mg PO DAILY 03/13/14 [History Confirmed 04/26/21] vitamin B complex 1 cap PO DAILY 08/17/16 [History Confirmed 04/26/21] Advanced Memory Formula 1 tablet DAILY 11/27/18 [History Confirmed 04/26/21] propranolol 20 mg PO TID 11/27/18 [History Confirmed 04/26/21] enoxaparin 80 mg/0.8 mL subcutaneous syringe 80 mg SUBCUT Q12H #12 dose 04/22/21 [Rx Confirmed 04/26/21] PFSH Medical History Cancer Colonic mass Colonic mass Colonic mass Dementia Diabetes DVT (deep venous thrombosis) Essential tremor Gastric reflux History of renal disease Hypertension Rash Subdural hematoma Walker as ambulation aid Surgical History History of superior vena cava filter placement S/P craniotomy S/P lower limb amputation S/P prostatectomy Family History Mother Hypertension CAD (coronary artery disease) Social History Smoking Status: Never smoker alcohol intake: current HPI HPI HPI: VIKRAM PORTER, is a 81 M who presents to the office today for surgical follow-up of his combined esophagogastroduodenoscopy and colonoscopy that I performed for him on April 23, 2021. The upper endoscopy demonstrated a deformity at the lesser curve with some retraction but I could not identify a mass. He had a small hiatal hernia. Few scattered polyps. Some reflux esophagitis. The colonoscopy was performed to the splenic flexure at that point the bowel prep failed. Was not able to proceed any further. He was discharged on a clear liquid diet. He presents now to proceed today with placement of a inferior vena cava filter as he is also been detected acutely is having a left common femoral vein deep venous thrombosis. He was initiated on therapeutic's Lovenox therapy. It is anticipated that on April 29, 2021 that we attempt a extended right colectomy. There is concerned that there is attachment to the stomach as well. At the time of his endoscopy he received 3 L of IV fluid. He was felt to be mildly dehydrated. Laboratory as of April 22, 2021 shows a white count of 8.4 with a hemoglobin 13.7 hematocrit 42.5 platelet count 3 and 26,000. Coags were normal. BUN 21 with a creatinine of 1.65. Glucose was elevated at 174. Total bilirubin 0.6 with an AST of 20 and an ALT 16 and alkaline phosphatase slightly elevated 136 and a total protein of 7 and albumin low at 3.1 Intake Visit Reasons: C-Scope Chief Complaint: c-scope Director Informatics Required: No Is patient in pain?: No Allergies No Known Allergies Allergy (Verified 04/22/21 08:32) [facility] Medical History Colonic mass Essential tremor Subdural hematoma Surgical History S/P craniotomy S/P lower limb amputation S/P prostatectomy Family History Mother Hypertension CAD (coronary artery disease) Social History Smoking Status: Never smoker alcohol intake: current HPI HPI HPI: VIKRAM PORTER, is a 81 M who presents to the office today for surgical consultation regarding abdominal pain and 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 Patient is referred by Dr. Martin and written copy my surgical consult recommendations would return to him. The patient is accompanied by his and daughter. Get a consistent history from the patient is very very difficult. Apparently he vomited stool-like material 01/09/2021. He has not been feeling well markedly diminished appetite and constant nausea. Most recent colonoscopy apparently 15 years ago. He will not eat he will not take fluids he has stopped his medication over a month ago. On 03/22/2021 he had a upper GI small bowel follow-through at the [facility]. Gastroesophageal reflux disease. No acute small bowel issues. At the [facility] on 04/15/[address] scan of the abdomen and pelvis. 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 Left kidney cystic structure. There is a 3.3 cm segment of distal transverse colon the left hemiabdomen abdomen with marked narrowing adjacent fat stranding as well as upstream colonic dilatation with air-fluid levels. The stranding goes to the level of the gastric antrum. This is highly suspicious for neoplasm. There is concerned about inferior aspect of the gastric antrum from possibly involved as well. The patient's had a previous history of a right leg fracture as best I can tell. He says it turns into gangrene. He had a have a right below-knee amputation. He also apparently had a subdural hematoma. He then had a rebleed. Apparently because of a DVT had a have a IVC filter placed. According to the that IVC filter has been removed. The patient has noted swelling of his left leg. The patient has felt very fatigued. Apparently he is known to be anemic with worsening anemia. He has had very little activity. He does not feel that he has been exposed to COVID-19. He has been vaccinated. After stopping all of his medications they still been checking his blood sugar ranging approximately 160. His antihypertensives were stopped because he has not been taking fluid and he has been hypotensive. He has had a history of prostate cancer and a radical prostatectomy. He apparently had recurrent disease and had to have radiation treatment ROS General General: Yes weight change, appetite and fatigue; No colon cancer, breast cancer or weakness HEENT HEENT: No difficulty swallowing, eye injury, eye surgery, swollen glands or hoarseness Endo Endocrine: Yes diabetes mellitus; No thyroid disease, thyroid cancer, Hair loss, heat intolerance or cold intolerance Skin Skin: No rash or changing moles Breast Breast: No left breast lump, right breast lump, nipple discharge, breast pain, abnormal mammogram, abnormal US or breast enlargement Musc Musculoskeletal: No back problems, arthritis, rheumatoid arthritis, gout or joint pain Cardio Cardiovascular: Yes high blood pressure; No murmur, pacemaker, heart disease, atrial fibrillation, heart attack, heart stent, palpitations, shortness of breat with exertion or chest pain Psych Psychiatric: Yes depression; No anxiety or hearing voices Resp Respiratory: No shortness of breath, Yes sleep apnea, No cough, No COPD, No asthma, No emphysema and No wheezing Gastro Gastrointestinal: No abdominal pain, Yes nausea or vomiting, Yes diarrhea, Yes constipation, No blood in stool, Yes acid reflux, No hemorrhoids, No ulcers, No gallbladder problem and No black,tarry stools Joseph Hematologic: No blood thinners, No blood disorders, No bleeding, Yes anemia and No blood clots Neuro Neurologic: No system reviewed and no additional complaints, except as documented, No as per HPI, No abnormal gait, No abnormal hearing, No abnormal movements, No abnormal speech, No behavioral changes, No burning sensations, No confusion, No convulsions, No disequilibrium, No dizziness, No localized weakness, No frequent falls, No headache(s), No lack of coordination, No loss of vision, No memory loss, No numbness, No other visual disturbances, No radicular pain, No restless legs, No sensory deficit, No syncope, No tingling, No tremor(s), No weakness and No other Exam Const Other: The patient has essential tremors. He appears to be every bit of 81 years of age. Somewhat hunched over frail in appearance. He is currently denying pain. HENFL Other: Disheveled hair Eyes General: appearance normal, both eyes and all related structures Chest Chest palpation & inspection: normal inspection of the chest Other: Kyphosis, adequate inspiration Resp Auscultation: clear to auscultation bilaterally Cardio Rate: regular rate Rhythm: regular rhythm GI Other: Soft, doughy, seeming enlargement of the right bowel noted but not tender, bowel sounds present with some occasional tinkles, well-healed infraumbilical midline incision, fibrofatty fullness left lower quadrant Musc Other: Cervical kyphosis Skin Other: Light petechial rash left pretibia. 1+ pitting edema. Right BKA Neuro Other: Severe tremors of his hands and legs Extrem Other: BKA right lower extremity. Mild edema left lower extremity Psych Other: Flat affect Assessment and Plan Assessment and Plan (1) Colonic mass: Status: Acute Orders: Orders: Comprehensive Metabolic Profil Today Partial Thromboplast Time Today CBC W/Diff, Automated Today Chest PA and Lateral Today (2) benign tremor: Status: Chronic (3) diabetes mellitus type II: Status: Chronic (4) hypertension: Status: Chronic (5) History of prostate cancer: Status: Chronic (6) Anemia: Status: Acute Qualifiers: Anemia type: unspecified type Qualified Code(s): D64.9 - Anemia, unspecified (7) Left leg swelling: Status: Acute Orders: Orders: Venous Duplex US, Unilateral Today Partial Thromboplast Time Today Prothrombin Time w/INR Today (8) History of DVT (deep vein thrombosis): Status: Acute (9) Colonic obstruction: Status: Acute Plan Details Additional Comments: 81-year-old gentleman who presents with a very complex set of problems. He has been ill lately since December. Has had weight loss. He has essentially stopped eating and drinking. He stopped all of his medications over a month ago. 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 There is evidence of high-grade obstruction with notable dilatation of the colon proximally. Patient has a flat affect. He by report from his does as he pleases. It is not clear whether he will take the bowel prep medication is recommended. It is actually not clear at the moment that he will proceed with diagnostic interventions or definitive surgery. I propose for him attempting a esophagogastroduodenoscopy with possible biopsy and colonoscopy with possible biopsy or polypectomy as indicated. I described technique, benefit, risk, alternatives. The upper endoscopy will help assist as to whether there is through and through erosion into the stomach. The colonoscopy hopefully be able to do define pathology. Currently the [facility] has a limit on the number of patients it can be admitted for overnight stay. The earliest they that I am being offered is 04/29/2021. I am at this point anticipating potentially a laparoscopic mobilization of the right colon and transverse colon with a extended right colectomy and hopefully a primary anastomosis though absolutely no guarantees of success have been offered. If there is stomach involvement that this likely will need to be converted to an open approach. We will not be able to follow typical EUS protocols because of the patient's high-grade obstructive symptoms. I likely will try to use a laparoscopically placed tap block. I will have him return to my office on Monday, Apr 26 to further discussion treatment options. Apparently the and daughter did inquire about nonsurgical options i.e. palliative care or hospice. Hopefully they will come to a conclusion regarding this subsequent to his endoscopy tomorrow and over the weekend. I have expressed to the patient and his family members that I consider these interventions to be very high risk for him. I plan on obtaining laboratory including a complete metabolic profile, CBC, CEA, PTT INR, PA and lateral chest x-ray. He is at high risk for converting to a complete colonic obstruction. He is at high operative risk for definitive care. He has left lower extremity swelling and a history of lower extremity DVT. I will obtain a venous duplex exam of the left lower extremity. Patient and family members have had an opportunity to ask and have questions answered. We are trying to expedite his care. Copy: Dr. Vipin English M.D., F.A.C.S. Coding Level of Care Code 22540 Diagnoses Colonic mass K63.89 benign tremor diabetes mellitus type II hypertension History of prostate cancer Z85.46 Anemia D64.9 Anemia type: unspecified type Left leg swelling M79.89 History of DVT (deep vein thrombosis) Z86.718 Colonic obstruction K56.609 It is of note that the patient had a venous duplex exam of his left lower extremity yesterday positive for DVT. He was initiated on therapeutic Lovenox therapy. He presents today for a combined esophagogastroduodenoscopy and colonoscopy. He is also scheduled next week to have a vena cava filter placed prior to anticipated: And possible gastric surgery. He was noted to be mildly dehydrated on screening laboratory. He will receive an additional liter of 0.9% saline. He will receive saline enemas to assist with cleansing of his left colon. We will try to proceed with a combined EGD colonoscopy. Vince English M.D., F.A.C.S. Assessment and Plan Assessment and Plan (1) Colonic obstruction: Status: Acute (2) History of DVT (deep vein thrombosis): Status: Acute Plan - Dr. Vince English MD: Today was a verbal consultative appointment with family members occluding the patient and his and 2 daughters. We discussed treatment options and anticipations and expectations. We discussed palliative treatment options versus surgical intervention. We discussed possibility of diagnostic laparoscopy with possible diverting ileostomy possible extended right colectomy and possible partial gastrectomy. I would anticipate possibly a tap block. No guarantees of success have been offered. This would be in deference to nonoperative intervention and palliative care. The patient apparently took very little liquid and on Monday but did better on Monday. He has had some liquid stool. He denies current vomiting. He denies current abdominal pain. Questions were offered was as to whether oncology could assist. Without tissue sampling I do not think that they would be able to offer much at this time. Radiation would not be an option due to the almost complete large bowel obstruction. I was not able to visualize the tumor so stenting would not be an option. After extensive discussion the patient and family members have elected to proceed. With that in mind the patient has a left common femoral DVT. I anticipate placing an inferior vena cava filter today as preoperative management. Copy: Dr. Vipin English M.D., F.A.C.S. The patient presents now for an attempt at resection of his suspected transverse colonic neoplasm with extension to the stomach. He has a inferior vena cava filter in place. Family members are well aware of the potential risks involved with this procedure. I anticipate initiating it laparoscopically and doing a laparoscopic bilateral tap block. Hopefully will be able to perform a resection of the right colon and transverse colon with if need be in block resection of the involved stomach. Would not anticipate then a primary gastric repair and a ileocolonic anastomosis. They are aware that a diverting ileostomy may be required. They are aware that he might have carcinomatosis and no intervention is possible. They have had an opportunity to ask and have questions answered. They are aware that I fully anticipate converting to an open procedure once the internal pathology is identified. Preoperative IV fluid resuscitation has been ordered. Vince English M.D., F.A.C.S.
[2021-04-29] MEDS: Cefotetan 2 GM in 0.9% NS 100 ML IV (11:15)
[2021-04-29] MEDS: BUPIVACAINE LIPOSOME/PF 20 ML VIAL OPERA.SITE (11:21)
[2021-04-29] MEDS: Bupivacaine 0.25% 30 ML Vial (11:21)
--- NOTE | 2021-04-29 15:05 | DCINST_ITS ---
Discharge Instructions Diet Discharge Diet: Light diet - advance as tolerated (if you have questions about your diet instructions, please talk to you doctor.) and Renal Diet Activity Discharge Activity: May Not Drive (for 3-5 days or while taking narcotic pain medicine.) May shower in (days): 1 Lifting Restrictions: 10 pounds Dressing / Incision Call your doctor if your incision/area has: Continuous Slow Oozing, Sudden Increased Bleeding, Increased Pain/ Swelling, Increased Redness and Foul Smelling Discharge Call your doctor if you observe: Fever of 101 or Higher Suture Line Care: Avoid Pulling/Pushing and Avoid Pinching/Bending Additional Dressing/Incision Instructions:: Dressing changes as needed to keep PEG clean and dry Follow Up Care Please Follow Up With: Vince English MD Test Results: Test results from this visit will be discussed in further detail at your follow-up appointment, if applicable. Discharge Plan Admission Admit Date/Time: 04/29/21 06:59 Attending Provider: Inna Story Primary Care Provider: Vipin Martin Consulting Providers: Celine Martinez ; Inna Story ; Yovany Kapoor ; Aurelia Monroy ; Aramis Craft ; Rod De La Torre ; Issac Ott ; Ralph Wilson ; Jose Wilson ; David Hargrove ; Abhijeet Ramos ; Eliseo Haro ; Margo Torres ; Yan Devries ; Maria R Diaz ; Cory Valdovinos ; Zak Plascencia ; Lawson Lowe ; Lam Hill ; Trang Monique NP ; Key Good ; Danielle Kidd NP ; Yan Galan NP ; Cleo Perry ; Karen Montemayor ; Vince Matos ; Kolton Meadows ; Devon Vigil ; Yoanna Johnson NP ; Poornima Torres ; Janice Tilley ; Aramis Zendejas ; Theresa Larry ; Luiza Gallardo ; Clemencia Boone ; Caroline Monterroso DIAMOND POLISHER Discharge Orders/Prescriptions Prescriptions: No Action coenzyme Q10 [Co Q-10] 100 MG capsule 100 mg PO DAILY RF: 0 vitamin B complex 1 EACH capsule 1 cap PO DAILY RF: 0 Advanced Memory Formula 1 tablet PO/SL DAILY RF: 0 propranolol 10 MG tablet 30 mg PO TID RF: 0 ascorbic acid (vitamin C) [Vitamin C] 500 mg Tablet 500 mg PO DAILY RF: 0 magnesium 250 mg Tablet 250 mg PO DAILY RF: 0 cholecalciferol (vitamin D3) [Vitamin D3] 125 mcg (5,000 unit) Tablet 125 mcg PO DAILY RF: 0 enoxaparin [Lovenox] 80 mg/0.8 mL syringe 80 mg subcut Q12H RF: 0 Other Ambulatory Orders: 12 Lead EKG (Routine) Timeframe: [id number] Location: None Selected Ordered By: Dr. Vince English Referrals / Follow Up: Vipin Martin MD [Primary Care Provider] - Disposition Discharge Orders: Discharge Patient (Routine); Ordered 05/06/21 Ordered By: Dr. Inna Story
--- NOTE | 2021-04-29 15:06 | OP.PCM_ITS ---
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 Post-Operative Diagnosis: Same Surgery/Procedure Performed:: Laparoscopic tap block Open extended right colectomy to the distal transverse colon with en bloc partial gastrectomy Esophagogastroduodenoscopy with percutaneous endoscopic gastrostomy tube placement and advancement of NG tube 10 Vincentian Ferrari catheter placement through urethral stricture Description of Surgical Findings:: Timeout informed consent was obtained. 81-year-old gentleman was taken to the operating room placed on the table underwent general endotracheal intubation anesthesia. It was at this time that it was realized that he did not receive his preoperatively ordered IV fluid bolus. Anesthesia was subsequently made aware and fluid bolus was divided. An attempt was made to place a routine Ferrari catheter per myself and this failed. I tried then a 16 Vincentian and then a 14 Vincentian coud? catheter also which failed. I finally tried a 10 Vincentian catheter and was able to get through the stricture suspected to be related to the patient's radical prostatectomy. I did consult who did come in attendance irrigated the catheter I placed and felt that it was adequately positioned. I then discussed with him at the end of the case possibly doing a dilatation but he felt that this would lead to patient incontinence and advised that I leave this catheter in position. The patient was on a beanbag. He was then sterilely clipper and chlorhexidine prepped. He received 2 g of cefotetan. Ioban draping was used as well. Superior to the umbilicus made a 2 cm vertical incision dissected down to the abdominal fascia made a direct incision put in a sun catheter and insufflated with CO2 to a pressure of 10 mmHg pressure. The patient immediately became densely bradycardic down to approximately 27. The abdominal insufflation was immediately ceased. The patient received 2 dosings of atropine per Dr. Nii Moulton anesthesiology. The patient was placed in Trendelenburg position. Carotid pulse remained intact. Subsequent blood pressure reading remained stable. At least 10 minutes were required for the patient to equilibrate. At that point we insufflated to 10 mm of pressure and he was able to tolerate that. Inspected the abdomen and did not see any carcinomatosis or seeding. All small and large bowel though was generally distended. Ice constantly under laparoscopic control performed a tap block using 20 cc of Exparel mixed with 30 cc of Marcaine and then diluted 200 cc. Bilateral tap block was performed under laparoscopic visualization. I then allowed the abdomen to deflate I made an upper midline incision he was electrocautery to cut down through the linea alba. I placed the large wound protector. Inspection revealed that there was a neoplasm in the distal transverse colon that was densely adherent to the stomach. The entire right colon was massively dilated and the small bowel was dilated throughout. The descending colon was decompressed. I then freed the entire right colon incising the white line of Toldt with an Enseal device. I was able to completely mobilize the terminal ileum and the ascending colon and proximal transverse colon. Where needed greater omentum was transected with the Enseal device. I transected the middle colic vessels and secured that with 0 Vicryl ligature. On inspection the invading portion of the tumor was densely adherent to the stomach and appeared to be transmural. I then elected to use a ROSANNE stapler and transect the involved portion of stomach leaving the lesser curvature intact. At his age of 81 with dementia and medical comorbidities I felt that a more aggressive gastrectomy was not in his interest. I felt that I would provide quality of life if I could get him past the obstruction. I then partially mobilized the distal transverse colon up to the splenic flexure. Some bleeding from the splenic edge was incurred and this was treated with electrocautery and then at the end of the procedure I placed FloSeal there as well. Hemostasis appeared to be intact. Having now clearly identified the transverse colon distal to the adherence I then used 2 firings of a ROSANNE 75 mm stapler to transect the greater curvature of the stomach almost like a sleeve type procedure to release the invaded portion from the colon. Where needed I obtained hemostasis with 4-0 silk [id number] sutures. I completed the dissection of the mesentery to the transverse colon with the Enseal device. I then transected the transverse colon distal to the tumor with a ROSANNE-75 stapler. I transected the terminal ileum with the same and the entire right colon transverse colon tumor and en bloc connection to the stomach was delivered as a specimen. Then in a functional end-to-end fashion I placed the small bowel side to side with the distal transverse colon made enterotomies and used the ROSANNE stapler to create the anastomosis. I closed the enterotomies with a TA 60. Where needed I inverted that staple line with a running 4-0 silk. I felt that I had nice patency. I then closed the mesenteric trap with a running 4-0 silk. There was some slight spillage of terminal ileal contents but this was rapidly aspirated free and then irrigated. Small bowel and the large bowel anastomosis appeared to be quite healthy and viable the small bowel appeared to have good positioning. Dr. Moulton had been unable to advance an NG tube into the stomach. Due to the patient's dementia and constant complaint of nausea preoperatively I felt that it was prudent to place a G-tube. I elected to do this in a PEG fashion. I then did an upper endoscopy saw the anterior wall the stomach advance the needle through the abdominal wall into the stomach advanced a wire withdrew the wire out the mouth advance the 20 Vincentian traction removal PEG tube through the stomach and through the abdominal wall. I then also with the upper scope was able to advance the NG tube down into the stomach by snaring it and advancing it. The abdomen was copiously irrigated and aspirated free. Hemostasis was intact. The midline wound was closed with a running 0 PDS. The external bumper to the PEG tube was applied and the external valve device was applied. The midline wound was irrigated. The skin edges were approximated with running septic or 4 Monocryl. The remainder of the local anesthetic was injected around the fascia and into the subcutaneous tissues. Completely occlusive dressings were applied. Abdominal binder was applied. The patient was then taken to the recovery room in satisfactory condition. The bradycardia that occurred during the in sufflation portion of the procedure never recurred. The patient remained hemodynamically stable throughout. IV fluids over 4 L. Urine output once again became brisk with clear urine. I anticipate transfer to the PCU. The hospital service has been consulted. Specimen right colon transverse colon en bloc with segment of stomach. Drains none. Blood loss 200 cc Vince English M.D., F.A.C.S. Surgeon: Vince English Type of Anesthesia: General and Local Anesthesiologist: Nii Moulton
--- NOTE | 2021-04-29 15:38 | PCM.CONS.GEN ---
Assessment & Plan Assessment/Plan (1) Cancer: PLAN: Mr. VIKRAM PORTER, is a 81 M was admitted after elective extended right hemicolectomy. 1. Transverse colon mass with large and small bowel obstruction with invasion into stomach: Patient had open extended right hemicolectomy to distal transverse colon with en bloc partial gastrectomy. EGD with PEG tube placement. NG tube insertion on 04/29/2021: Patient is being admitted in PCU after elective surgery. We will keep the patient n.p.o. Do not remove NG tube or Ferrari urethral catheter without talking to Dr. English. With extensive surgery, consider VT prophylaxis from tomorrow after 24 hours of surgery. Patient has IVC filter. Patient had 4 L of IV fluid. Repeat CBC and BMP and magnesium. continue Ringer lactate and IV PPI 2. Prostate cancer status prostatectomy with chronic with restriction status Ferrari catheter: Dr. Gordillo is aware. As mentioned above keep the Ferrari catheter. 3. Bradycardia during perioperative duration required atropine with history of benign positional tremor: Home medication he states propanolol 30 mg 3 times daily but as per family and Dr. English, patient has not been taking medications for 1 and half months but unclear. Patient is n.p.o. Hold propranolol. Twelve-lead EKG on 12/02/2020 shows sinus rhythm with first-degree AV block. QTC 428 ms. As needed EKG if patient gets chest pain or severe bradycardia or arrhythmia. Check BMP, magnesium and phosphorus and CBC. 4. Diabetes mellitus type II: Last A1c 5.7. Accu-Cheks every 6 hourly and cover with medium sliding scale insulin. 5. Hypertension: IV antihypertensive medication hydralazine as needed for systolic blood pressure more than 160 mmHg 6. Acute DVT of left common femoral vein on 04/22/2021 status post IVC filter: Patient had preop Lovenox and preoperative IVC filter placed. With extensive surgery will hold anticoagulant today but might consider tomorrow after 24 hours surgery. 7. Other multiple comorbidities include dementia, chronic normocytic anemia, decreased functional status and moderate protein calorie malnutrition: Total time of the visit including total time spent in counseling or coordination of care, (more than 50% of the total time, spent in obtaining medical information from nurses and other ancillary care providers,explaining to the patient about labs, imaging, diagnosis and management), discussion with surgeon, review of labs and imaging is 30 minutes. HPI Consult Data Date of Consult: 04/29/21 HPI Narrative Reason for Consultation: Comanagement of multiple comorbidities and active medical issues HPI Narrative: Mr. VIKRAM PORTER, is a 81 M with multiple comorbidities as listed below was seen as a consultation; referral from Dr. Vince English. 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 Patient was just seen after surgery in PACU therefore he is groggy, hardly opens eyes and then closes. I discussed with Dr. English regarding his ongoing medical and surgical issues. Patient was found 3.3 cm distal transverse colon with marked narrowing of left hemicolon with adjacent fatty stranding up to the level of gastric antrum suspicion of gastric involvement and upstream colonic dilatation with air-fluid level. Patient had IVC filter in the past that was removed and then again he had IVC filter placed prior to surgery. Patient had EGD and NG tube and PEG tube was placed. Patient also has chronic anemia. On 04/29, he had open extended right hemicolectomy to the distal transverse colon with en bloc partial gastrectomy, EGD with PEG and NG tube placement. He also has chronic GERD with early stricture for which 10 Cape Verdean Ferrari catheter was placed with difficulty by Dr English. Patient has prostate cancer status post prostatectomy that complicated with urethral stricture. Urologist Dr. Gordillo is aware. According to him, if he requires urethral dilation he will be incontinent therefore for now we will keep the Ferrari catheter. Patient also had recently left lower leg swelling for which venous duplex was done which showed left common femoral DVT and was on therapeutic dose of Lovenox 80 mg every 12 prior to surgery. Patient also had preop IVC filter placed. In PACU, his vitals are BP 119/69, heart rate 68/min, respiratory rate 16, pulse ox 98 % on room air but he is on 2 L of oxygen. He denies chest pain or pressure but history is limited because of anesthesia effect. Of note, patient has right below-knee amputation. Patient was found to have bradycardic during surgery and required atropine 0.4 mg x 2. Patient had cefotetan 2 g prior to surgery. Surgery was performed under GA, rapid sequence intubation. Patient had about 4 L of IV fluid. Patient last labs on 04/22 shows hemoglobin 13.7 that might be over concentrated as he has history of chronic anemia with decreased appetite and loss of weight. BUN/creatinine 02/07.65. A1c 5.7. Alkaline phosphatase 136 mildly elevated otherwise liver transaminases are normal. CEA 9.3. Last Accu-Chek 103. His multiple comorbidities include hypertension, diabetes mellitus type 2, history of DVT status post IVC filter then removal and then again placed prior to surgery, essential tremor, GERD, dementia, subdural hematoma, prostate cancer status prostatectomy. Past surgical history: Craniotomy, filter placement, prostatectomy and right below-knee amputation. [facility] Medical History (Updated 04/29/21 @ 15:[address] Lawson Lowe MD) Cancer Colonic mass Colonic mass Colonic mass Dementia Diabetes DVT (deep venous thrombosis) Essential tremor Gastric reflux History of renal disease Hypertension Non-smoker Rash Sleep apnea Subdural hematoma Walker as ambulation aid Home Medications coenzyme Q10 [Co Q-10] 100 mg PO DAILY 03/13/14 [History Last Taken 04/26/21] vitamin B complex 1 cap PO DAILY 08/17/16 [History Last Taken 04/26/21] Advanced Memory Formula 1 tablet PO/SL DAILY 11/27/18 [History Last Taken 04/26/21] propranolol 30 mg PO TID 11/27/18 [History Last Taken 04/28/21] ascorbic acid (vitamin C) [Vitamin C] 500 mg PO DAILY 04/28/21 [History Last Taken Unknown] cholecalciferol (vitamin D3) [Vitamin D3] 125 mcg PO DAILY 04/28/21 [History Last Taken Unknown] enoxaparin [Lovenox] 80 mg SUBCUT Q12H 04/28/21 [History Last Taken 04/28/21] magnesium 250 mg PO DAILY 04/28/21 [History Last Taken Unknown] Allergy/AdvReac Type Severity Reaction Status Date / Time No Known Allergies Allergy Verified 04/26/21 10:28 Family History Mother Hypertension CAD (coronary artery disease) Surgical History H/O esophagogastroduodenoscopy History of superior vena cava filter placement S/P colonoscopy S/P craniotomy S/P lower limb amputation S/P prostatectomy Social History Smoking Status: Never smoker alcohol intake: current ROS ROS Narrative Patient has dementia and is also under the effect of anesthesia. Patient is groggy. 12 ROS is unobtainable except mentioned in HPI in detail. Review of Systems ROS Unobtainable: due to mental condition and due to mental status Physical Exam Narrative General: Groggy, under anesthesia effect. HEENT: Atraumatic, PERRLA, EOMI, Normocephalic Oral: Oral mucosa dry. NG tube. Neck: Supple, No JVD, Negative Carotid Bruits Lungs: Air entry diminished in bilateral lung bases. No crepitation/rhonchi Cardiovascular: Sinus bradycardia, heart rate 60/min., Normal S1, Normal S2, No murmurs Abdomen: Abdominal dressing dry. PEG tube. Surgical bandage applied on it. : Status post prostatectomy. Ferrari catheter 10 Cape Verdean. Clear urine. No suprapubic tenderness. Extremities: Right BKA. No edema, Capillary Refill Less than 3 Seconds Skin: No rashes, No breakdown Musculoskeletal: No Tenderness to Palpation of Joints or Extremities. Neurological: Cranial nerves II-XII grossly intact, DTR 2+/4 Psych/Mental Status: Dementia. Lab / Micro Data Labs: Laboratory Results - last 24 hr 04/29/21 08:08: POC Glucose 103 Charges/Coding Visit Charges Inpatient E&M: 39937 Init Hosp L3
[2021-04-29 16:26] LABS: Bedside Glucose 150 mg/dL (70-110)
[2021-04-29 18:18] LABS: Absolute Lymphocyte Count 0.64 X10^3/uL (0.83-4.51); Absolute Neutrophil Count 4.5 X10^3/uL (2.0-7.7); Hematocrit 38.8 % (40-54); Hemoglobin 12.1 g/dL (13.0-16.5); Lymphocyte # 0.64 X10^3/ul (0.83-4.51); Lymphocyte % 12.2 % (19-41); Mean Corp Hgb Conc 31.2 g/dL (32-36); Mean Corpuscular Hgb 27.5 pg (27.0-32.0); Mean Corpuscular Volume 88.2 fL (80-94); Mean Platelet Vol. 10.5 fl (6.2-12.0); Monocyte# 0.15 X10^3/uL; Monocyte% 2.9 % (0-10); NRBC Flagged by Analyzer 0 % (0-5); Neutrophil # 4.45 X10^3/uL (2.7-7.7); Neutrophil % 84.7 % (47-70); Platelet Count 243 K/mm3 (150-450); RBC Distribution Width SD 60.6 fl (35.1-43.9); White Blood Count 5.3 K/mm3 (4.4-11.0)
[2021-04-29 18:23] LABS: Anion Gap 8 (5-15); BUN 17 mg/dL (7-18); BUN/Creat Ratio 10.6 RATIO (10-20); Calcium,Total 7.5 mg/dL (8.5-10.1); Chloride 113 mmol/L (98-107); EST Glomerular Filtration Rate 44 mL/min (>60); Est Glom Filt Rate - Afr Amer 54 mL/min (>60); Estimated Creatinine Clearance 32.68 ml/min; Glucose 156 mg/dL (74-106); Magnesium 1.6 mg/dL (1.6-2.6); Phosphorus 3.3 mg/dL (2.5-4.9); Sodium Level 140 mmol/L (136-145)
--- NOTE | 2021-04-29 18:36 | PCS.PANDOC ---
PANDEMIC DOCUMENTATION INITIATED: Date: 04/29/2021 Time: 183
[2021-04-29 20:11] LABS: Bedside Glucose 145 mg/dL (70-110)
[2021-04-30] VITALS (9 sets, daily range): BP systolic 117–139; BP diastolic 59–88; PULSE 90–102; RESP 16–18; TEMP 36.2–36.6; O2SAT 97–99
[2021-04-30] MEDS: 0.9% Saline Lock 10 ML Syringe IV ×2 (00:03→03:30)
[2021-04-30] MEDS: Lactated Ringers 1,000 ML 100 ML IV (00:13)
[2021-04-30 00:20] LABS: Bedside Glucose 122 mg/dL (70-110)
[2021-04-30] MEDS: Morphine 2 MG/ML Syringe IV ×2 (03:29)
--- NOTE | 2021-04-30 03:50 | NURSING ---
Pt asked at this time about getting up to ambulate now that he is more awake. Pt refuses and states that he will not get up right now.
[2021-04-30 05:28] LABS: Absolute Neutrophil Count 14.8 X10^3/uL (2.0-7.7); Basophil# 0.03 X10^3/uL; Basophil% 0.2 % (0-1); Hematocrit 38.2 % (40-54); Hemoglobin 11.7 g/dL (13.0-16.5); Lymphocyte % 5.9 % (19-41); Mean Corp Hgb Conc 30.6 g/dL (32-36); Mean Corpuscular Hgb 27.6 pg (27.0-32.0); Mean Corpuscular Volume 90.1 fL (80-94); Mean Platelet Vol. 9.8 fl (6.2-12.0); Monocyte# 0.96 X10^3/uL; Monocyte% 5.7 % (0-10); NRBC Flagged by Analyzer 0 % (0-5); Neutrophil # 14.82 X10^3/uL (2.7-7.7); Neutrophil % 87.8 % (47-70); Platelet Count 226 K/mm3 (150-450); RBC Distribution Width CV 19.1 % (11.6-14.6); RBC Distribution Width SD 62.7 fl (35.1-43.9); Red Blood Count 4.24 M/mm3 (4.6-6.2); White Blood Count 16.9 K/mm3 (4.4-11.0)
--- NOTE | 2021-04-30 05:34 | PCM.PN.SRG ---
Subjective Subjective Patient suggest that he is doing okay. Some abdominal pain. Objective Data Objective Data Vital Signs: Vital Signs Temp Pulse Resp BP Pulse Ox 97.9 F 93 18 130/80 H 98 04/30/21 03:17 04/30/21 03:17 04/30/21 03:17 04/30/21 03:17 04/30/21 03:17 Oxygen Flow Rate (L/min) 4 Oxygen Delivery Method Room Air Weight: 162 lb 7.691 oz Body Mass Index (BMI) 26.2 Intake & Output: Intake and Output for Last 24 Hours 04/28/21 04/29/21 04/30/21 23:59 23:59 23:59 Intake Total 1250 / 1250 1000 / 1000 Output Total 830 / 880 50 / 50 Balance 420 / 370 950 / 950 Lab / Micro Data Result Diagrams: 04/30/21 05:15 04/29/21 17:50 Labs: Laboratory Results - last 24 hr 04/29/21 08:08: POC Glucose 103 04/29/21 15:56: POC Glucose 150 H 04/29/21 17:50: WBC 5.3, RBC 4.40 L, Hgb 12.1 L, Hct 38.8 L, MCV 88.2, MCH 27.5, MCHC 31.2 L, RDW Std Deviation 60.6 H, RDW Coeff of Armani 19.0 H, Plt Count 243, MPV 10.5, Immature Gran % (Auto) 0.200, Neut % (Auto) 84.7 H, Lymph % (Auto) 12.2 L, [place] % (Auto) 2.9, Eos % (Auto) 0.0, Baso % (Auto) 0.0, Absolute Neuts (auto) 4.5, Absolute Lymphs (auto) 0.64 L, Nucleated RBC % 0 04/29/21 17:50: Sodium 140, Potassium 5.0, Chloride 113 H, Carbon Dioxide 19.0 L, Anion Gap 8, BUN 17, Creatinine 1.60 H, Estim Creat Clear Calc 32.68, Est GFR (MDRD) Af Amer 54 L, Est GFR (MDRD) Non-Af 44 L, BUN/Creatinine Ratio 10.6, Glucose 156 H, Calcium 7.5 L, Phosphorus 3.3, Magnesium 1.6 11/18/21 20:07: POC Glucose 145 H 11/18/21 23:59: POC Glucose 122 H 04/30/21 05:15: WBC 16.9 H, RBC 4.24 L, Hgb 11.7 L, Hct 38.2 L, MCV 90.1, MCH 27.6, MCHC 30.6 L, RDW Std Deviation 62.7 H, RDW Coeff of Armani 19.1 H, Plt Count 226, MPV 9.8, Immature Gran % (Auto) 0.400, Neut % (Auto) 87.8 H, Lymph % (Auto) 5.9 L, [place] % (Auto) 5.7, Eos % (Auto) 0.0, Baso % (Auto) 0.2, Absolute Neuts (auto) 14.8 H, Absolute Lymphs (auto) 1.00, Nucleated RBC % 0 Physical Exam Resp normal respiratory effort and clear to auscultation bilaterally GI GI Narrative: Soft, scaphoid, few intermittent bowel sounds, dressing in place Assessment & Plan Assessment/Plan (1) Cancer: PLAN: By report the patient refused to mobilize. Will be important to get him out of bed today and hopefully start ambulation with his right leg prosthesis and assistance. We will consult physical therapy for assistance. I have encouraged the patient on incentive spirometry. This is not yet been initiated. Morning laboratory still pending. Vince English M.D., F.A.C.S.
[2021-04-30 06:07] LABS: Anion Gap 13 (5-15); BUN 21 mg/dL (7-18); BUN/Creat Ratio 10.8 RATIO (10-20); Calcium,Total 7.6 mg/dL (8.5-10.1); Chloride 118 mmol/L (98-107); Creatinine, Serum 1.94 mg/dL (0.70-1.30); EST Glomerular Filtration Rate 36 mL/min (>60); Est Glom Filt Rate - Afr Amer 43 mL/min (>60); Estimated Creatinine Clearance 26.95 ml/min; Glucose 161 mg/dL (74-106); Potassium 5.2 mmol/L (3.5-5.1); Sodium Level 141 mmol/L (136-145)
[2021-04-30 06:10] LABS: Bedside Glucose 146 mg/dL (70-110)
[2021-04-30 07:01] LABS: Color, Urine Yellow (Yellow); Glucose, Dipstick Normal (Normal); Ketone-Dipstick 50 mg/dl (Negative); Leukocyte Esterase-Dipstick 500 /ul (Negative); Nitrite-Dipstick Negative (Negative); Occult Blood-Urine 250 /ul (Negative); Protein-Dipstick 30 mg/dl (Negative); Specific Gravity, Urine 1.025 (1.002-1.030); Urine Clarity Sl. Cloudy (Clear); Urine Urobilinogen 4 mg/dl (Normal)
[2021-04-30 07:04] LABS: Urine Bilirubin Dipstick 1 mg/dL (Negative)
[2021-04-30] MEDS: 0.9% Normal Saline 1,000 ML 75 ML IV (08:18)
[2021-04-30] MEDS: Enoxaparin 40 MG/0.4 ML Syringe SC (08:20)
[2021-04-30 12:41] LABS: Bedside Glucose 161 mg/dL (70-110)
--- NOTE | 2021-04-30 14:20 | CASEMGMT ---
LOVELY SANTIAGO assessment: Face to Face with patient for initial transition planning/care coordination assessment. RN PAMELA introduced self and role at [facility], pt/ voice understanding and consents to assessment. Pt is sitting up in bed in no distress on room air with ng in place. Pt is A/Ox4 and answers questions appropriately. Pt's is at bedside during assessment and answers most questions for pt at this time. Care providers, pharmacy, and demographics verified. Presentation: Pt admitted for bradycardia during colon surgery with Dr English Admitting dx: Right colectomy PCP: Mario Specialists: Amador, surgeon Preferred Pharmacy: [facility] Insurance: [facility] Prescription Benefit: [facility] Living Will/HPOA: Pt provided LW/HPOA to this LOVELY SANTIAGO at this time, which was copied and placed on chart. Pt's , Cha Marcus, is HPOA. LNOK: Cha Marcus, /HPOA: Marci Harley, daughter Living Arrangements: Pt lives with in 1 story condo with no steps and states no concerns at home. Pt's assists with ADL's. Transportation: drives and states no transportation concerns. DME/HHC: Pt has the following DME: walker, raised toilet seat, shower chair, and grab bars. states no need for any further DME. states pt has been to [facility] in the past and has had HHC set up. Pt currently has caterer's aide thru [facility] in [place] for 3 days/week, 2-4 hours/day. Pt is also active with [facility] palliative care. P/ state no concerns with going home at time of discharge. Pt is retired. Pt does not smoke cigarettes or drink ETOH. Pt/ voice no further concerns/needs. CM to follow for any further discharge planning/needs. Advised pt to ask for CM if any further questions/concerns/needs arise, voices understanding. Pt goal: Home Plan[place] LOVELY SANTIAGO
--- NOTE | 2021-04-30 17:18 | PN.HOSP_ITS ---
Subjective Subjective Flatus. Abdomen feeling better. Objective Data Objective Data Vital Signs: Vital Signs Temp Pulse Resp BP Pulse Ox 36.6 C 102 H 16 133/63 H 99 04/30/21 11:44 04/30/21 11:44 04/30/21 11:44 04/30/21 11:44 04/30/21 11:44 Oxygen Flow Rate (L/min) 4 Oxygen Delivery Method Room Air Weight: 73.7 kg Body Mass Index (BMI) 26.2 Intake & Output: Intake and Output for Last 24 Hours 04/28/21 04/29/21 04/30/21 23:59 23:59 23:59 Intake Total 1250 / 1250 2912.92 / 2912.92 Output Total 830 / 880 110 / 110 Balance 420 / 370 2802.92 / 2802.92 Lab / Micro Data Result Diagrams: 04/30/21 05:15 04/30/21 05:15 Labs: Laboratory Results - last 24 hr 04/29/21 17:50: WBC 5.3, RBC 4.40 L, Hgb 12.1 L, Hct 38.8 L, MCV 88.2, MCH 27.5, MCHC 31.2 L, RDW Std Deviation 60.6 H, RDW Coeff of Armani 19.0 H, Plt Count 243, MPV 10.5, Immature Gran % (Auto) 0.200, Neut % (Auto) 84.7 H, Lymph % (Auto) 12.2 L, [place] % (Auto) 2.9, Eos % (Auto) 0.0, Baso % (Auto) 0.0, Absolute Neuts (auto) 4.5, Absolute Lymphs (auto) 0.64 L, Nucleated RBC % 0 04/29/21 17:50: Sodium 140, Potassium 5.0, Chloride 113 H, Carbon Dioxide 19.0 L , Anion Gap 8, BUN 17, Creatinine 1.60 H, Estim Creat Clear Calc 32.68, Est GFR (MDRD) Af Amer 54 L, Est GFR (MDRD) Non-Af 44 L, BUN/Creatinine Ratio 10.6, Glucose 156 H, Calcium 7.5 L, Phosphorus 3.3, Magnesium 1.6 04/29/21 20:07: POC Glucose 145 H 04/29/21 23:59: POC Glucose 122 H 04/30/21 05:15: WBC 16.9 H, RBC 4.24 L, Hgb 11.7 L, Hct 38.2 L, MCV 90.1, MCH 27.6, MCHC 30.6 L, RDW Std Deviation 62.7 H, RDW Coeff of Armani 19.1 H, Plt Count 226, MPV 9.8, Immature Gran % (Auto) 0.400, Neut % (Auto) 87.8 H, Lymph % (Auto) 5.9 L, [place] % (Auto) 5.7, Eos % (Auto) 0.0, Baso % (Auto) 0.2, Absolute Neuts (auto) 14.8 H, Absolute Lymphs (auto) 1.00, Nucleated RBC % 0 04/30/21 05:15: Sodium 141, Potassium 5.2 H, Chloride 118 H, Carbon Dioxide 10.0 L, Anion Gap 13, BUN 21 H, Creatinine 1.94 H, Estim Creat Clear Calc 26.95, Est GFR (MDRD) Af Amer 43 L, Est GFR (MDRD) Non-Af 36 L, BUN/Creatinine Ratio 10.8, Glucose 161 H, Calcium 7.6 L 04/30/21 06:00: POC Glucose 146 H 04/30/21 06:50: Urine Color Yellow, Urine Clarity Sl. Cloudy, Urine pH 5.0, Ur Specific [place] 1.025, Urine Protein 30 H, Urine Glucose (UA) Normal, Urine K etones 50 H, Urine Occult Blood 250 H, Urine Nitrite Negative, Urine Bilirubin 1 H, Urine Urobilinogen 4 H, Ur Leukocyte Esterase 500 H 04/30/21 12:23: POC Glucose 161 H Physical Exam Const alert and no apparent distress Resp normal respiratory effort, no retractions, no use of accessory muscles and clear to auscultation bilaterally Cardio regular rate, regular rhythm, S1 normal heart sound and S2 normal heart sound GI GI Narrative: distended. hypoactive BS. Psych affect normal Assessment & Plan Assessment/Plan (1) Bradycardia: PLAN: 1. bradycardia * transient * resolved * propranolol held. 2. Abnormal UA * dipstick w 500 LE * check standard UA * received IVF for decreased UA. 3. DM2 * stable * on SSI 4. Colon mass * s/p r hemicolectomy * mgmt per GS Charges/Coding Visit Charges Inpatient E&M: 88192 Subs Hosp L2
[2021-04-30 17:30] LABS: Absolute Lymphocyte Count 0.86 X10^3/uL (0.83-4.51); Absolute Neutrophil Count 17.7 X10^3/uL (2.0-7.7); Basophil# 0.03 X10^3/uL; Basophil% 0.1 % (0-1); Hematocrit 35.1 % (40-54); Hemoglobin 10.9 g/dL (13.0-16.5); Lymphocyte # 0.86 X10^3/ul (0.83-4.51); Lymphocyte % 4.3 % (19-41); Mean Corp Hgb Conc 31.1 g/dL (32-36); Mean Corpuscular Hgb 27.7 pg (27.0-32.0); Mean Corpuscular Volume 89.1 fL (80-94); Mean Platelet Vol. 10.4 fl (6.2-12.0); Monocyte# 1.34 X10^3/uL; Monocyte% 6.7 % (0-10); NRBC Flagged by Analyzer 0 % (0-5); Neutrophil # 17.65 X10^3/uL (2.7-7.7); Neutrophil % 88.3 % (47-70); Platelet Count 271 K/mm3 (150-450); RBC Distribution Width CV 19.5 % (11.6-14.6); RBC Distribution Width SD 62.4 fl (35.1-43.9); Red Blood Count 3.94 M/mm3 (4.6-6.2)
[2021-04-30 17:45] LABS: Anion Gap 14 (5-15); BUN 28 mg/dL (7-18); BUN/Creat Ratio 10.4 RATIO (10-20); Calcium,Total 7.4 mg/dL (8.5-10.1); Chloride 114 mmol/L (98-107); EST Glomerular Filtration Rate 24 mL/min (>60); Est Glom Filt Rate - Afr Amer 29 mL/min (>60); Estimated Creatinine Clearance 19.36 ml/min; Glucose 199 mg/dL (74-106); Potassium 4.4 mmol/L (3.5-5.1); Sodium Level 141 mmol/L (136-145)
--- NOTE | 2021-04-30 18:09 | NURSING ---
pt refused to stay up in chair despite Dr. English teaching, assisted back to bed by the help of the aides
--- NOTE | 2021-04-30 18:17 | PCM.PN.BLA ---
Progress Note BUN and Creat both increased WBC increased, Hgb decreased Significant bladder/white intervention with white placement and abnormal urinalysis; pt with history of chronic incontinence and prostate resection and urethral stricture Pt appears to be third spacing fluids significantly Will give IVF and start Ab while awaiting culture. Will watch CBC carefully and hold lovenox Very small white but it has been irrigated Continue close care
[2021-04-30 18:31] LABS: Bedside Glucose 168 mg/dL (70-110)
[2021-04-30] MEDS: Ceftriaxone 1 GM/50 ML BAG IV (20:38)
--- NOTE | 2021-04-30 23:30 | NURSING ---
This RN asked patient if he would be willing to get up and ambulate some tonight, or in the next few hours. Patient stated he would later in the morning but not now.
[2021-05-01] VITALS (8 sets, daily range): BP systolic 125–145; BP diastolic 51–98; PULSE 75–95; RESP 16–17; TEMP 36.6–36.8; O2SAT 96–100
[2021-05-01] MEDS: 0.9% Normal Saline 1,000 ML 150 ML IV ×2 (00:23→09:36)
[2021-05-01 00:26] LABS: Bedside Glucose 177 mg/dL (70-110)
[2021-05-01 01:12] LABS: Mucous, Urine 0 SEEN /hpf (<or=2+); Squamous Epithelial Cells - UA 0 SEEN /hpf (0-5)
[2021-05-01 01:17] LABS: Color, Urine Yellow (Yellow); Glucose, Dipstick 50 mg/dl (Normal); Ketone-Dipstick 15 mg/dl (Negative); Leukocyte Esterase-Dipstick 500 /ul (Negative); Nitrite-Dipstick Negative (Negative); Occult Blood-Urine 250 /ul (Negative); Protein-Dipstick 30 mg/dl (Negative); Specific Gravity, Urine 1.025 (1.002-1.030); Urine Clarity Cloudy (Clear); Urine Urobilinogen 1 mg/dl (Normal)
[2021-05-01 01:22] LABS: Urine Bilirubin Dipstick 1 mg/dL (Negative)
[2021-05-01 01:46] LABS: Amorphous Sediment 2+; Bacteria 2+ /hpf (None Seen)
[2021-05-01 01:47] LABS: Red Blood Cells-Urine 10-25 SEEN /hpf (0-5); White Blood Cells >100 SEEN /hpf (0-5)
[2021-05-01 01:48] LABS: Coarse Granular Cast 5-10 SEEN /lpf (0-5 /lpf)
[2021-05-01 01:49] LABS: Transitional Epithelial - Ur 0-5 SEEN /hpf (0-5)
--- NOTE | 2021-05-01 05:29 | US_ITS ---
STUDY: RENAL ULTRASOUND - COMPLETE REASON FOR EXAM: Male, 81 years old. Oliguria TECHNIQUE: Ultrasound evaluation of the kidneys was performed with real-time and static haines-scale imaging. COMPARISON: None. FINDINGS: RIGHT KIDNEY: Normal location of the right kidney, which is normal in size. The right kidney measures 10.7 x 5.0 x 5.2 cm. There is a normal cortex of the right kidney. The renal cortex measures 1.4 cm. There is no right renal mass or cyst. There are no right renal calculi. There is no right hydronephrosis. DISTAL RIGHT URETER: There is non-visualization of the distal right ureter. LEFT KIDNEY: Normal location of the left kidney, which is normal in size. The left kidney measures 10.7 x 3.8 x 5.1 cm. There is a normal cortex of the left kidney. The renal cortex measures 1.3 cm. 2 cysts are noted up to 3 cm. There are no left renal calculi. There is no left hydronephrosis. DISTAL LEFT URETER: There is non-visualization of the distal left ureter. US/Kidney and Bladder IMPRESSION: Left renal cysts. Electronically Signed: Tony Teixeira DO at 9:58 EST Tel [phone], Service support ,
--- NOTE | 2021-05-01 05:31 | PCM.PN.SRG ---
Subjective Subjective Patient complains of incisional soreness. He does not appear to be in distress and was sleeping upon my arrival. Objective Data Objective Data Vital Signs: Vital Signs Temp Pulse Resp BP Pulse Ox 98.0 F 87 17 127/98 H 100 05/01/21 04:15 05/01/21 04:15 05/01/21 04:15 05/01/21 04:15 05/01/21 04:15 Oxygen Flow Rate (L/min) 4 Oxygen Delivery Method Room Air Weight: 162 lb 7.691 oz Body Mass Index (BMI) 26.2 Intake & Output: Intake and Output for Last 24 Hours 04/29/21 04/30/21 05/01/21 23:59 23:59 23:59 Intake Total 1250 / 1250 4421.67 / 4421.67 Output Total 830 / 880 330 / 370 40 / 40 Balance 420 / 370 4091.67 / 4051.67 -40 / -40 Lab / Micro Data Result Diagrams: 04/30/21 17:10 04/30/21 17:10 Labs: Laboratory Results - last 24 hr 04/30/21 05:15: Sodium 141, Potassium 5.2 H, Chloride 118 H, Carbon Dioxide 10.0 L, Anion Gap 13, BUN 21 H, Creatinine 1.94 H, Estim Creat Clear Calc 26.95, Est GFR (MDRD) Af Amer 43 L, Est GFR (MDRD) Non-Af 36 L, BUN/Creatinine Ratio 10.8, Glucose 161 H, Calcium 7.6 L 04/30/21 06:00: POC Glucose 146 H 04/30/21 06:50: Urine Color Yellow, Urine Clarity Sl. Cloudy, Urine pH 5.0, Ur Specific [place] 1.025, Urine Protein 30 H, Urine Glucose (UA) Normal, Urine Ketones 50 H, Urine Occult Blood 250 H, Urine Nitrite Negative, Urine Bilirubin 1 H, Urine Urobilinogen 4 H, Ur Leukocyte Esterase 500 H 04/30/21 12:23: POC Glucose 161 H 04/30/21 17:10: WBC 20.0 H, RBC 3.94 L, Hgb 10.9 L, Hct 35.1 L, MCV 89.1, MCH 27.7, MCHC 31.1 L, RDW Std Deviation 62.4 H, RDW Coeff of Armani 19.5 H, Plt Count 271, MPV 10.4, Immature Gran % (Auto) 0.600, Neut % (Auto) 88.3 H, Lymph % (Auto) 4.3 L, [place] % (Auto) 6.7, Eos % (Auto) 0.0, Baso % (Auto) 0.1, Absolute Neuts (auto) 17.7 H, Absolute Lymphs (auto) 0.86, Nucleated RBC % 0 04/30/21 17:10: Sodium 141, Potassium 4.4, Chloride 114 H, Carbon Dioxide 13.0 L, Anion Gap 14, BUN 28 H, Creatinine 2.70 H, Estim Creat Clear Calc 19.36, Est GFR (MDRD) Af Amer 29 L, Est GFR (MDRD) Non-Af 24 L, BUN/Creatinine Ratio 10.4, Glucose 199 H, Calcium 7.4 L 04/30/21 18:08: POC Glucose 168 H 05/01/21 00:14: POC Glucose 177 H 05/01/21 00:43: Urine Color Yellow, Urine Clarity Cloudy, Urine pH 5.0, Ur Specific [place] 1.025, Urine Protein 30 H, Urine Glucose (UA) 50 H, Urine Ketones 15 H, Urine Occult Blood 250 H, Urine Nitrite Negative, Urine Bilirubin 1 H, Urine Urobilinogen 1 H, Ur Leukocyte Esterase 500 H, Urine RBC 10-25 SEEN, Urine WBC >100 SEEN, Ur Squamous Epith Cells 0 SEEN, Ur Transition Epith Cell 0-5 SEEN, Amorphous Sediment 2+, Urine Bacteria 2+, Coarse Granular Casts 5-10 SEEN, Urine Mucus 0 SEEN Physical Exam Const no apparent distress Resp Resp Narrative: Tremors limit deep inspiration, bibasilar rales, clear in the apices GI GI Narrative: Soft, doughy, appropriately tender, occasional bowel sounds Assessment & Plan Assessment/Plan (1) Oliguria: PLAN: Oliguria with now significant fluid retention. Fluid boluses have not improve the condition. The patient preoperatively had stage III chronic renal disease. At the time of surgery significant effort was required to place a Ferrari catheter. Urology was asked to attend and evaluated the Ferrari and felt that it was in position. Intraoperatively I was able to check that the Ferrari balloon was within the urinary bladder however the urinary bladder appeared to be quite contracted. After surgery the patient's family admitted that he has had chronic urinary incontinence. He has had a history of a radical prostatectomy. Only a 10 [place] catheter could be placed. did not want to perform any additional urologic procedures i.e. dilatation or placement of a larger catheter because of the risks of aggravating the patient's incontinence. I spent 45 minutes in placing the 10 [place] catheter. This should not be removed without urology consultation. I will obtain bladder and kidney ultrasound. Fluids have now been cut back. He has not received a furosemide challenge. I will defer that to medicine/nephrology. Morning labs are still pending. I did place a type and screen. Urinalysis from yesterday suggests UTI. He very likely presented to the hospital with his chronic incontinence and an occult UTI. Ongoing need for medical assistance. Vince English M.D., F.A.C.S.
[2021-05-01] MEDS: Insulin Lispro 100 UNIT/ML INSULN.PEN SC ×3 (06:09→18:19)
[2021-05-01 07:00] LABS: Bedside Glucose 178 mg/dL (70-110)
[2021-05-01] MEDS: 0.9% Normal Saline 1,000 ML 50 ML IV (07:02)
--- NOTE | 2021-05-01 09:25 | CON.PCM.RE_ITS ---
Assessment & Plan Assessment/Plan (1) Acute renal failure: PLAN: oligoanuric PUMA. Prerenal from dehydration vs ATN. No recent overt hypotensive episode (lowest SBP 90's). Minimal iv contrast exposure, received 15cc contrast for IVC filter after discussion with Dr. English. Remains anuric with 4L+ fluids intraop and post op. Extensive chart review. Check urine sodium, creatinine for FeNa. UA with high specific gravitiy. Urine dark, berna. Continue with iv fluids. Renal US --> no hydro, normal sized kidneys. Baseline creatinine 1.4 in November 2020, 1.6 on 04/29. 1.94 to 2.7 on 04/30 to 3.18 today. Avoid nephrotoxins, iv contrast, NSAIDs. renal dose antibiotics. Discussed with Dr English and pt spouse at bedside possibility of needing temp dialysis if azotemia continues to worsen. Iv lasix as needed. Minimal third spacing on exam with stable oxygenation. CXR clear from 04/22/21 (2) Metabolic acidosis: PLAN: replace with iv fluids if acidosis worsens. Bicarb improved to 16 today (3) diabetes mellitus type II: PLAN: stable (4) hypertension: PLAN: stable (5) Acute deep venous thrombosis: PLAN: LLE s/p IVC filter 04/26/21 (6) Colon cancer: PLAN: s/p rt hemicolectomy with PEG (7) Anemia: QUALIFIERS: Anemia type: unspecified type Qualified Code(s): D64.9 - Anemia, unspecified PLAN: hgb 9.3g (8) History of prostate cancer: (9) Dementia: (10) UTI (urinary tract infection): PLAN: urine c/s pending. continue with iv antibx. Leukocytosis improving HPI Consult Data Date of Consult: 05/02/21 HPI Narrative Reason for Consultation: PUMA, oliguria HPI Narrative: VIKRAM PORTER, is an 81 M with diabetes, hypertension, prostate cancer s/p radical prostatectomy, dementia, s/p craniotomy for SDH, rt BKA for gangrene. He has a history of DVT with IVC filter placement and removal in the past and recently placed on 04/26/21 for DVT LLE. He underwent EGD/Colonoscopy for epigastric pain, weight loss, anorexia and was diagnosed with a high grade obstructive colonic mass. He underwent rt hemicolectomy with PEG placement on 04/29/21. There was difficulty placing white catheter intraop due to urethral stricture with hx of radical prostatectomy. Creatinine was 0.93 in November 2018. Creatinine on 04/22 was 1.65, 1.60 on 04/29, progressed to 1.94 and 2.7 on 04/30 with metabolic acidosis. He is currently oliguric with 55cc urine reported last 24h. Renal US showed normal-sized kidneys without hydronephrosis. Patient currently denies any shortness of breath, cough, fever or chills. Denies any abdominal pain, nausea, vomiting. He currently has an NG tube to suction. He states he has not had a bowel movement or any flatus. Urine dark brena in White catheter. Denies any thirst. [facility] Medical History (Updated 05/02/21 @ 06:[address] Vince English MD) Cancer Colonic mass Colonic mass Colonic mass Dementia Diabetes DVT (deep venous thrombosis) Essential tremor Gastric reflux History of renal disease Hypertension Kidney disease Non-smoker Rash Sleep apnea Subdural hematoma Walker as ambulation aid Home Medications coenzyme Q10 [Co Q-10] 100 mg PO DAILY 03/13/14 [History Last Taken 04/26/21] vitamin B complex 1 cap PO DAILY 08/17/16 [History Last Taken 04/26/21] Advanced Memory Formula 1 tablet PO/SL DAILY 11/27/18 [History Last Taken 04/26/21] propranolol 30 mg PO TID 11/27/18 [History Last Taken 04/28/21] ascorbic acid (vitamin C) [Vitamin C] 500 mg PO DAILY 04/28/21 [History Last Taken Unknown] cholecalciferol (vitamin D3) [Vitamin D3] 125 mcg PO DAILY 04/28/21 [History Last Taken Unknown] enoxaparin [Lovenox] 80 mg SUBCUT Q12H 04/28/21 [History Last Taken 04/28/21] magnesium 250 mg PO DAILY 04/28/21 [History Last Taken Unknown] Allergy/AdvReac Type Severity Reaction Status Date / Time No Known Allergies Allergy Verified 04/26/21 10:28 Family History Mother Hypertension CAD (coronary artery disease) Surgical History H/O esophagogastroduodenoscopy History of superior vena cava filter placement S/P colonoscopy S/P craniotomy S/P lower limb amputation S/P prostatectomy Social History Smoking Status: Never smoker alcohol intake: current ROS Constitutional Constitutional: Reports weakness and weight loss; Denies chills or fever(s) Eyes Eyes: Denies loss of vision Cardiovascular Cardiovascular: Denies chest pain, dyspnea on exertion or edema Respiratory/Chest Respiratory/Chest: Denies hemoptysis or shortness of breath at rest Gastrointestinal Gastrointestinal: Denies abdominal pain, diarrhea, nausea or vomiting Genitourinary Genitourinary: Reports other Details: White to CD Neurologic Neurologic: Reports tremor(s) and weakness Psychiatric Psychiatric: Reports anxiety; Denies depression Hematologic/Lymphatic Hematologic/Lymphatic: Reports anemia Physical Exam Const alert, oriented x3 and no apparent distress Constitutional Narrative: diffuse tremors, stuccato voice Resp Resp Narrative: faint bibasilar crackles Auscultation: crackles Cardio Cardio Narrative: tackycardia GI non-tender and non-distended GI Narrative: PEG Palpation: soft Narrative: dark urine Bladder / Kidney Exam: catheter in place Extremity Extremity Narrative: mild BLE edema Skin no wounds Neuro Sensorium / Orientation: awake and alert Psych cooperative Lab / Micro Data Result Diagrams: 05/02/21 05:00 05/02/21 05:00 Labs: Laboratory Results - last 24 hr 04/30/21 12:23: POC Glucose 161 H 04/30/21 17:10: WBC 20.0 H, RBC 3.94 L, Hgb 10.9 L, Hct 35.1 L, MCV 89.1, MCH 27.7, MCHC 31.1 L, RDW Std Deviation 62.4 H, RDW Coeff of Armani 19.5 H, Plt Count 271, MPV 10.4, Immature Gran % (Auto) 0.600, Neut % (Auto) 88.3 H, Lymph % (Auto) 4.3 L, [place] % (Auto) 6.7, Eos % (Auto) 0.0, Baso % (Auto) 0.1, Absolute Neuts (auto) 17.7 H, Absolute Lymphs (auto) 0.86, Nucleated RBC % 0 04/30/21 17:10: Sodium 141, Potassium 4.4, Chloride 114 H, Carbon Dioxide 13.0 L , Anion Gap 14, BUN 28 H, Creatinine 2.70 H, Estim Creat Clear Calc 19.36, Est GFR (MDRD) Af Amer 29 L, Est GFR (MDRD) Non-Af 24 L, BUN/Creatinine Ratio 10.4, Glucose 199 H, Calcium 7.4 L 04/30/21 18:08: POC Glucose 168 H 05/01/21 00:14: POC Glucose 177 H 05/01/21 00:43: Urine Color Yellow, Urine Clarity Cloudy, Urine pH 5.0, Ur Specific [place] 1.025, Urine Protein 30 H, Urine Glucose (UA) 50 H, Urine Ketones 15 H, Urine Occult Blood 250 H, Urine Nitrite Negative, Urine Bilirubin 1 H, Urine Urobilinogen 1 H, Ur Leukocyte Esterase 500 H, Urine RBC 10-25 SEEN, Urine WBC >100 SEEN, Ur Squamous Epith Cells 0 SEEN, Ur Transition Epith Cell 0- 5 SEEN, Amorphous Sediment 2+, Urine Bacteria 2+, Coarse Granular Casts 5-10 SEEN, Urine Mucus 0 SEEN 05/01/21 06:05: POC Glucose 178 H
[2021-05-01 10:11] LABS: Absolute Neutrophil Count 15.3 X10^3/uL (2.0-7.7); Basophil# 0.01 X10^3/uL; Basophil% 0.1 % (0-1); Hematocrit 28.9 % (40-54); Hemoglobin 9.3 g/dL (13.0-16.5); Lymphocyte % 2.9 % (19-41); Mean Corp Hgb Conc 32.2 g/dL (32-36); Mean Platelet Vol. 9.9 fl (6.2-12.0); Monocyte# 1.08 X10^3/uL; Monocyte% 6.3 % (0-10); NRBC Flagged by Analyzer 0 % (0-5); Neutrophil # 15.34 X10^3/uL (2.7-7.7); Neutrophil % 89.8 % (47-70); POSITIVE DIFFERENTIAL YES; Platelet Count 257 K/mm3 (150-450); RBC Distribution Width CV 19.7 % (11.6-14.6); RBC Distribution Width SD 62.4 fl (35.1-43.9); Red Blood Count 3.32 M/mm3 (4.6-6.2); White Blood Count 17.1 K/mm3 (4.4-11.0)
[2021-05-01 10:12] LABS: Differential Indicated SCAN CRITERIA MET
[2021-05-01 10:27] LABS: Anion Gap 12 (5-15); BUN 36 mg/dL (7-18); BUN/Creat Ratio 11.3 RATIO (10-20); Calcium,Total 7.1 mg/dL (8.5-10.1); Chloride 115 mmol/L (98-107); Creatinine, Serum 3.18 mg/dL (0.70-1.30); EST Glomerular Filtration Rate 20 mL/min (>60); Est Glom Filt Rate - Afr Amer 24 mL/min (>60); Estimated Creatinine Clearance 16.44 ml/min; Glucose 204 mg/dL (74-106); Sodium Level 143 mmol/L (136-145)
[2021-05-01] MEDS: Ceftriaxone 1 GM/50 ML BAG IV (10:51)
[2021-05-01 10:59] LABS: Magnesium 1.2 mg/dL (1.6-2.6)
[2021-05-01 13:01] LABS: Bedside Glucose 210 mg/dL (70-110)
[2021-05-01] MEDS: 0.9% Normal Saline 1,000 ML 100 ML IV ×2 (13:10→22:02)
[2021-05-01 14:12] LABS: Urine Sodium 9 mmol/L (Not Establ.)
--- NOTE | 2021-05-01 15:16 | PN.HOSP_ITS ---
Subjective Subjective no flatus. abdomen feeling better Objective Data Objective Data Vital Signs: Vital Signs Temp Pulse Resp BP Pulse Ox 36.8 C 94 16 125/51 H 98 05/01/21 10:15 05/01/21 10:15 05/01/21 10:15 05/01/21 10:15 05/01/21 10:15 Oxygen Flow Rate (L/min) 4 Oxygen Delivery Method Room Air Weight: 73.7 kg Body Mass Index (BMI) 26.2 Intake & Output: Intake and Output for Last 24 Hours 04/29/21 04/30/21 05/01/21 23:59 23:59 23:59 Intake Total 1250 / 1250 4421.67 / 4421.67 1262.50 / 1262.50 Output Total 830 / 880 330 / 370 55 / 55 Balance 420 / 370 4091.67 / 4051.67 1207.50 / 1207.50 Lab / Micro Data Result Diagrams: 05/01/21 09:56 05/01/21 09:56 Labs: Laboratory Results - last 24 hr 04/30/21 17:10: WBC 20.0 H, RBC 3.94 L, Hgb 10.9 L, Hct 35.1 L, MCV 89.1, MCH 27.7, MCHC 31.1 L, RDW Std Deviation 62.4 H, RDW Coeff of Armani 19.5 H, Plt Count 271, MPV 10.4, Immature Gran % (Auto) 0.600, Neut % (Auto) 88.3 H, Lymph % (Auto) 4.3 L, [place] % (Auto) 6.7, Eos % (Auto) 0.0, Baso % (Auto) 0.1, Absolute Neuts (auto) 17.7 H, Absolute Lymphs (auto) 0.86, Nucleated RBC % 0 04/30/21 17:10: Sodium 141, Potassium 4.4, Chloride 114 H, Carbon Dioxide 13.0 L , Anion Gap 14, BUN 28 H, Creatinine 2.70 H, Estim Creat Clear Calc 19.36, Est GFR (MDRD) Af Amer 29 L, Est GFR (MDRD) Non-Af 24 L, BUN/Creatinine Ratio 10.4, Glucose 199 H, Calcium 7.4 L 04/30/21 18:08: POC Glucose 168 H 05/01/21 00:14: POC Glucose 177 H 05/01/21 00:43: Urine Color Yellow, Urine Clarity Cloudy, Urine pH 5.0, Ur Specific [place] 1.025, Urine Protein 30 H, Urine Glucose (UA) 50 H, Urine Ketones 15 H, Urine Occult Blood 250 H, Urine Nitrite Negative, Urine Bilirubin 1 H, Urine Urobilinogen 1 H, Ur Leukocyte Esterase 500 H, Urine RBC 10-25 SEEN, Urine WBC >100 SEEN, Ur Squamous Epith Cells 0 SEEN, Ur Transition Epith Cell 0- 5 SEEN, Amorphous Sediment 2+, Urine Bacteria 2+, Coarse Granular Casts 5-10 SEEN, Urine Mucus 0 SEEN 05/01/21 06:05: POC Glucose 178 H 05/01/21 09:56: WBC 17.1 H, RBC 3.32 L, Hgb 9.3 L, Hct 28.9 L, MCV 87.0, MCH 28.0, MCHC 32.2, RDW Std Deviation 62.4 H, RDW Coeff of Armani 19.7 H, Plt Count 257, MPV 9.9, Immature Gran % (Auto) 0.900, Neut % (Auto) 89.8 H, Lymph % (Auto) 2.9 L, [place] % (Auto) 6.3, Eos % (Auto) 0.0, Baso % (Auto) 0.1, Absolute Neuts (auto) 15.3 H, Absolute Lymphs (auto) 0.50 L, Nucleated RBC % 0 05/01/21 09:56: Sodium 143, Potassium 4.0, Chloride 115 H, Carbon Dioxide 16.0 L , Anion Gap 12, BUN 36 H, Creatinine 3.18 H, Estim Creat Clear Calc 16.44, Est GFR (MDRD) Af Amer 24 L, Est GFR (MDRD) Non-Af 20 L, BUN/Creatinine Ratio 11.3, Glucose 204 H, Calcium 7.1 L 05/01/21 09:56: Blood Type A POSITIVE, Antibody Screen NEGATIVE 05/01/21 09:56: Magnesium 1.2 L 05/01/21 12:56: POC Glucose 210 H 05/01/21 13:30: Ur Random Sodium 9, Urine Creatinine 182.00 Micro: Microbiology 04/30/21 06:50 Urine Catheter - Ferrari Urine Culture - Preliminary Culture exhibits no growth. Radiography Diagnostic Testing: Radiology Impression Renal Ultrasound 05/01/21 05:29 IMPRESSION: Left renal cysts. Electronically Signed: Tnoy Teixeira DO at 9:58 EST Tel [phone], Service support , Physical Exam Const alert and no apparent distress Resp normal respiratory effort, no retractions, no use of accessory muscles and clear to auscultation bilaterally Cardio regular rate, regular rhythm, S1 normal heart sound and S2 normal heart sound GI soft to palpation GI Narrative: hypoactive BS Extremity General Extremity: edema Assessment & Plan Assessment/Plan (1) Bradycardia: PLAN: 1. bradycardia * transient * resolved * propranolol held. 2. UTI * dipstick w 500 LE * check standard UA * received IVF for decreased UA. * on CTX * follow up cultures 3. DM2 * stable * on SSI 4. Colon mass * s/p r hemicolectomy * mgmt per GS 5. PUMA * worse * oliguric * US unremarkable except cysts * nephrology on consult Charges/Coding Visit Charges Inpatient E&M: 22226 Subs Hosp L2
[2021-05-01 18:20] LABS: Bedside Glucose 183 mg/dL (70-110)
[2021-05-01 23:55] LABS: Bedside Glucose 163 mg/dL (70-110)
[2021-05-02] VITALS (10 sets, daily range): BP systolic 121–167; BP diastolic 70–96; PULSE 81–112; RESP 16–18; TEMP 36–37.1; O2SAT 95–98
[2021-05-02 05:15] LABS: Absolute Lymphocyte Count 0.53 X10^3/uL (0.83-4.51); Absolute Neutrophil Count 14.1 X10^3/uL (2.0-7.7); Basophil# 0.01 X10^3/uL; Basophil% 0.1 % (0-1); Hemoglobin 8.9 g/dL (13.0-16.5); Lymphocyte # 0.53 X10^3/ul (0.83-4.51); Lymphocyte % 3.4 % (19-41); Mean Corpuscular Hgb 27.8 pg (27.0-32.0); Mean Corpuscular Volume 84.4 fL (80-94); Mean Platelet Vol. 9.4 fl (6.2-12.0); Monocyte# 0.91 X10^3/uL; Monocyte% 5.8 % (0-10); NRBC Flagged by Analyzer 0 % (0-5); Neutrophil # 14.06 X10^3/uL (2.7-7.7); Neutrophil % 89.9 % (47-70); POSITIVE DIFFERENTIAL YES; Platelet Count 193 K/mm3 (150-450); RBC Distribution Width CV 19.7 % (11.6-14.6); RBC Distribution Width SD 59.8 fl (35.1-43.9); White Blood Count 15.6 K/mm3 (4.4-11.0)
[2021-05-02 05:16] LABS: Differential Indicated SCAN CRITERIA MET
[2021-05-02 05:30] LABS: Bedside Glucose 148 mg/dL (70-110)
[2021-05-02 05:35] LABS: Anisocytosis 2+
[2021-05-02 05:41] LABS: ALB/GLOB Ratio 0.5 RATIO (0.9-2.4); AST(SGOT) 35 U/L (15-37); Alanine Aminotransfer ALT/SGPT 27 U/L (16-61); Albumin, Serum 1.5 g/dL (3.2-5.0); Alkaline Phosphatase 83 U/L (45-117); Anion Gap 10 (5-15); BUN 45 mg/dL (7-18); BUN/Creat Ratio 16.4 RATIO (10-20); Calcium,Total 7.5 mg/dL (8.5-10.1); Chloride 115 mmol/L (98-107); Creatinine, Serum 2.74 mg/dL (0.70-1.30); EST Glomerular Filtration Rate 24 mL/min (>60); Est Glom Filt Rate - Afr Amer 29 mL/min (>60); Estimated Creatinine Clearance 19.08 ml/min; Globulin 3.2 g/dL (2.2-4.2); Glucose 182 mg/dL (74-106); Potassium 3.9 mmol/L (3.5-5.1); Protein, Total 4.7 g/dL (6.4-8.2); Sodium Level 143 mmol/L (136-145)
--- NOTE | 2021-05-02 06:30 | PCM.PN.SRG ---
Subjective Subjective Patient removed his NG tube last night. He denies any nausea. There had not been significant drainage from the NG tube. He states that he has had a small amount of flatus. No stool. Objective Data Objective Data Vital Signs: Vital Signs Temp Pulse Resp BP Pulse Ox 97.9 F 92 18 158/96 H 98 05/02/21 04:02 05/02/21 04:02 05/02/21 04:02 05/02/21 04:52 05/02/21 04:02 Oxygen Flow Rate (L/min) 4 Oxygen Delivery Method Room Air Weight: 162 lb 7.691 oz Body Mass Index (BMI) 26.2 Intake & Output: Intake and Output for Last 24 Hours 04/30/21 05/01/21 05/02/21 23:59 23:59 23:59 Intake Total 4421.67 / 4421.67 2804.17 / 2804.17 30 / 30 Output Total 330 / 370 450 / 450 Balance 4091.67 / 4051.67 2354.17 / 2354.17 30 / 30 Lab / Micro Data Result Diagrams: 05/02/21 05:00 05/02/21 05:00 Labs: Laboratory Results - last 24 hr 05/01/21 06:05: POC Glucose 178 H 05/01/21 09:56: WBC 17.1 H, RBC 3.32 L, Hgb 9.3 L, Hct 28.9 L, MCV 87.0, MCH 28.0, MCHC 32.2, RDW Std Deviation 62.4 H, RDW Coeff of Armani 19.7 H, Plt Count 257, MPV 9.9, Immature Gran % (Auto) 0.900, Neut % (Auto) 89.8 H, Lymph % (Auto) 2.9 L, [place] % (Auto) 6.3, Eos % (Auto) 0.0, Baso % (Auto) 0.1, Absolute Neuts (auto) 15.3 H, Absolute Lymphs (auto) 0.50 L, Nucleated RBC % 0 05/01/21 09:56: Sodium 143, Potassium 4.0, Chloride 115 H, Carbon Dioxide 16.0 L, Anion Gap 12, BUN 36 H, Creatinine 3.18 H, Estim Creat Clear Calc 16.44, Est GFR (MDRD) Af Amer 24 L, Est GFR (MDRD) Non-Af 20 L, BUN/Creatinine Ratio 11.3, Glucose 204 H, Calcium 7.1 L 05/01/21 09:56: Blood Type A POSITIVE, Antibody Screen NEGATIVE 05/01/21 09:56: Magnesium 1.2 L 05/01/21 12:56: POC Glucose 210 H 05/01/21 13:30: Ur Random Sodium 9, Urine Creatinine 182.00 05/01/21 18:16: POC Glucose 183 H 05/01/21 23:49: POC Glucose 163 H 05/02/21 05:00: Sodium 143, Potassium 3.9, Chloride 115 H, Carbon Dioxide 18.0 L, Anion Gap 10, BUN 45 H, Creatinine 2.74 H, Estim Creat Clear Calc 19.08, Est GFR (MDRD) Af Amer 29 L, Est GFR (MDRD) Non-Af 24 L, BUN/Creatinine Ratio 16.4, Glucose 182 H, Calcium 7.5 L, Total Bilirubin 0.40, AST 35, ALT 27, Alkaline Phosphatase 83, Total Protein 4.7 L, Albumin 1.5 L, Globulin 3.2, Albumin/Globulin Ratio 0.5 L 05/02/21 05:00: WBC 15.6 H, RBC 3.20 L, Hgb 8.9 L, Hct 27.0 L, MCV 84.4, MCH 27.8, MCHC 33.0, RDW Std Deviation 59.8 H, RDW Coeff of Armani 19.7 H, Plt Count 193, MPV 9.4, Immature Gran % (Auto) 0.800, Neut % (Auto) 89.9 H, Lymph % (Auto) 3.4 L, [place] % (Auto) 5.8, Eos % (Auto) 0.0, Baso % (Auto) 0.1, Absolute Neuts (auto) 14.1 H, Absolute Lymphs (auto) 0.53 L, Nucleated RBC % 0, Anisocytosis 2+ 05/02/21 05:24: POC Glucose 148 H Micro: Microbiology 04/30/21 06:50 Urine Catheter - Ferrari Urine Culture - Preliminary Culture exhibits no growth. Radiography Diagnostic Testing: Radiology Impression Renal Ultrasound 05/01/21 05:29 IMPRESSION: Left renal cysts. Electronically Signed: Tony Teixeira DO at 9:58 EST Tel [phone], Service support , Physical Exam Resp normal respiratory effort Resp Narrative: Good respiratory effort. Lungs are certainly clear in the apices. GI GI Narrative: Soft, slightly distended, infrequent bowel sounds, incisions clean, nontender Assessment & Plan Assessment/Plan (1) Acute renal failure: QUALIFIERS: Acute renal failure type: unspecified Qualified Code(s): N17.9 - Acute kidney failure, unspecified (2) Cancer: PLAN: Patient appears stable this morning. He has slightly higher blood pressure. This may very well be improving his renal perfusion and assisting with his improved urine output. Creatinine has improved. At this point I would anticipate that he is postop day 3 and will start mobilizing his significant amount of third space fluids. With the amount of IV fluid that he received intraoperatively and postoperatively as he mobilizes it he certainly is at risk for intravascular distention, atrial fibrillation and congestive failure problems. I would be in favor of a dose of Lasix to help facilitate the mobilization of fluids. Will defer at the moment to Dr. Poornima Torres allowing her to review his status I will be initiating clear liquids but only when the patient is absolutely full upright and sitting. At this point I will decrease his IV fluids as anticipating some oral intake as well as the third spaced fluid mobilization I believe the CBC demonstrates significant amount of hemodilution and the patient was markedly dehydrated on presentation. I am not anticipating the need for transfusion at this time. We will continue to observe.
--- NOTE | 2021-05-02 06:37 | NURSING ---
This RN spoke w/ Dr. English this AM at pt's bedside regarding clarification of the dressing orders. The PEG tube should be securely taped down to prevent the pt from pulling it out. The abdominal binder should be loosely in place as well to help prevent pt from messing w/ PEG tube as well.
[2021-05-02] MEDS: 0.9% Normal Saline 1,000 ML 30 ML IV (08:08)
[2021-05-02] MEDS: Ceftriaxone 1 GM/50 ML BAG IV (08:36)
[2021-05-02] MEDS: Ensure Clear 120 ML Liquid PO ×3 (08:39→17:19)
[2021-05-02] MEDS: Insulin Lispro 100 UNIT/ML INSULN.PEN SC ×3 (11:02→23:59)
[2021-05-02 11:20] LABS: Bedside Glucose 198 mg/dL (70-110)
--- NOTE | 2021-05-02 14:30 | PN.HOSP_ITS ---
Subjective Subjective NG removed. +Flatus. Objective Data Objective Data Vital Signs: Vital Signs Temp Pulse Resp BP Pulse Ox 37.1 C 107 H 18 121/70 H 97 05/02/21 14:00 05/02/21 14:00 05/02/21 14:00 05/02/21 14:00 05/02/21 14:00 Oxygen Flow Rate (L/min) 4 Oxygen Delivery Method Room Air Weight: 74.9 kg Body Mass Index (BMI) 26.2 Intake & Output: Intake and Output for Last 24 Hours 04/30/21 05/01/21 05/02/21 23:59 23:59 23:59 Intake Total 4421.67 / 4421.67 2804.17 / 2804.17 1820 / 1820 Output Total 330 / 370 450 / 450 290 / 290 Balance 4091.67 / 4051.67 2354.17 / 2354.17 1530 / 1530 Lab / Micro Data Result Diagrams: 05/02/21 05:00 05/02/21 05:00 Labs: Laboratory Results - last 24 hr 05/01/21 18:16: POC Glucose 183 H 05/01/21 23:49: POC Glucose 163 H 05/02/21 05:00: Sodium 143, Potassium 3.9, Chloride 115 H, Carbon Dioxide 18.0 L , Anion Gap 10, BUN 45 H, Creatinine 2.74 H, Estim Creat Clear Calc 19.08, Est GFR (MDRD) Af Amer 29 L, Est GFR (MDRD) Non-Af 24 L, BUN/Creatinine Ratio 16.4, Glucose 182 H, Calcium 7.5 L, Total Bilirubin 0.40, AST 35, ALT 27, Alkaline Phosphatase 83, Total Protein 4.7 L, Albumin 1.5 L, Globulin 3.2, Albumin/Globulin Ratio 0.5 L 05/02/21 05:00: WBC 15.6 H, RBC 3.20 L, Hgb 8.9 L, Hct 27.0 L, MCV 84.4, MCH 2 7.8, MCHC 33.0, RDW Std Deviation 59.8 H, RDW Coeff of Armani 19.7 H, Plt Count 193, MPV 9.4, Immature Gran % (Auto) 0.800, Neut % (Auto) 89.9 H, Lymph % (Auto) 3.4 L, [place] % (Auto) 5.8, Eos % (Auto) 0.0, Baso % (Auto) 0.1, Absolute Neuts (auto) 14.1 H, Absolute Lymphs (auto) 0.53 L, Nucleated RBC % 0, Anisocytosis 2+ 05/02/21 05:24: POC Glucose 148 H 05/02/21 11:00: POC Glucose 198 H Micro: Microbiology 04/30/21 06:50 Urine Catheter - Ferrari Urine Culture - Final Culture exhibits no growth. Physical Exam Const alert Resp normal respiratory effort, no retractions, no use of accessory muscles and clear to auscultation bilaterally Cardio regular rate, regular rhythm, S1 normal heart sound and S2 normal heart sound GI normal to inspection, nondistended, normoactive bowel sounds, soft to palpation, non-tender and non-distended Psych affect normal Assessment & Plan Assessment/Plan (1) Bradycardia: PLAN: 1. bradycardia * transient * resolved * propranolol held, now HR going back up, will resume propranolol in case pt going through BB withdrawal 2. UTI--ruled out * UCx negative * recommend DC CTX 3. DM2 * stable * on SSI 4. Colon mass * s/p r hemicolectomy * mgmt per GS * NGT removed. 5. PUMA * improving * oliguric * US unremarkable except cysts * nephrology on consult * on 30 cc IVF. 6. Essential tremor * resume propranolol. Charges/Coding Visit Charges Inpatient E&M: 99010 Subs Hosp L2
[2021-05-02 16:35] LABS: Bedside Glucose 186 mg/dL (70-110)
[2021-05-02] MEDS: Furosemide 20 MG/2 ML VIAL IV (17:19)
[2021-05-02] MEDS: Propranolol 10 MG Tablet 30 MG PO (21:45)
[2021-05-03] VITALS (14 sets, daily range): BP systolic 105–122; BP diastolic 75–83; PULSE 69–85; RESP 16–26; TEMP 36.3–36.7; O2SAT 83–97
[2021-05-03] LABS: Bedside Glucose 226 mg/dL (70-110)
--- NOTE | 2021-05-03 05:28 | PN.SURG_ITS ---
Subjective Subjective Patient complained of some shortness of breath. By nursing report they felt the abdominal binder had creeped up onto his chest. He has had a large stool. He is not having any significant pain. Objective Data Objective Data Vital Signs: Vital Signs Temp Pulse Resp BP Pulse Ox 96.8 F L 104 H 16 153/92 H 95 05/02/21 20:00 05/02/21 20:00 05/02/21 20:00 05/02/21 20:00 05/02/21 20:00 Oxygen Flow Rate (L/min) 4 Oxygen Delivery Method Room Air Weight: 165 lb 2.02 oz Body Mass Index (BMI) 26.2 Intake & Output: Intake and Output for Last 24 Hours 05/01/21 05/02/21 05/03/21 23:59 23:59 23:59 Intake Total 2804.17 / 2804.17 1969 / 1969 30 Output Total 450 / 450 390 / 390 Balance 2354.17 / 2354.17 1580 / 1580 Lab / Micro Data Result Diagrams: 05/02/21 05:00 05/02/21 05:00 Labs: Laboratory Results - last 24 hr 05/02/21 05:00: Sodium 143, Potassium 3.9, Chloride 115 H, Carbon Dioxide 18.0 L , Anion Gap 10, BUN 45 H, Creatinine 2.74 H, Estim Creat Clear Calc 19.08, Est GFR (MDRD) Af Amer 29 L, Est GFR (MDRD) Non-Af 24 L, BUN/Creatinine Ratio 16.4, Glucose 182 H, Calcium 7.5 L, Total Bilirubin 0.40, AST 35, ALT 27, Alkaline Phosphatase 83, Total Protein 4.7 L, Albumin 1.5 L, Globulin 3.2, Albumin/Globulin Ratio 0.5 L 05/02/21 05:00: Anisocytosis 2+ 05/02/21 05:24: POC Glucose 148 H 05/02/21 11:00: POC Glucose 198 H 05/02/21 16:32: POC Glucose 186 H 05/02/21 23:31: POC Glucose 226 H Micro: Microbiology 04/30/21 06:50 Urine Catheter - Ferrari Urine Culture - Final Culture exhibits no growth. Physical Exam Const oriented x3 and no apparent distress Cardio Cardio Narrative: Mild tachycardia GI GI Narrative: Soft, nontender, dressings clean and dry, bowel sounds present Extremity Extremity Narrative: Edema noted all 4 extremities Assessment & Plan Assessment/Plan (1) Colon cancer: QUALIFIERS: Colon location: transverse Qualified Code(s): C18.4 - Malignant neoplasm of transverse colon PLAN: Patient had a reasonable response to a 20 mg IV dose of Lasix last night because of fluid retention and shortness of breath. Morning laboratories pending. I have now ceased the IV fluid. The patient is complaining of shortness of breath again this morning. He is mildly tachycardic. He has had 1 dose of his normal metoprolol last night. I have requested that he receive his morning dose now. His abdominal surgery site and bowel function is doing very well. He had a large stool. We will move his diet up. Continue to mobilize as tolerated. I am still expecting mobilization his third spaced fluids. Pending his morning laboratory will consider further Lasix to help mobilize. 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 Likely will not remove it till tomorrow morning after hopeful return of urine function and degree of diuresis. Will need to have urology immediately available if the patient goes into retention. He does have a history of a left femoral DVT. He has a vena cava filter in place. At this time I have a lower suspicion of PE as etiology of his current complaints of shortness of breath. Clearly because of his renal function contrast needs to be strictly avoided. Because of the patient's renal status and fluid requirements and hemoglobin changes I have not reinitiated pharmacologic anticoagulation. Will reassess pending morning laboratory. I had initiated the patient on Rocephin IV for suspected urinary tract infection. Final urine cultures no growth. Pending morning laboratory I will plan ceasing the Rocephin. Discharge planning should be initiated.
[2021-05-03 05:30] LABS: Bedside Glucose 250 mg/dL (70-110)
[2021-05-03] MEDS: Propranolol 10 MG Tablet 30 MG PO ×3 (05:35→20:31)
[2021-05-03] MEDS: Insulin Lispro 100 UNIT/ML INSULN.PEN SC ×4 (05:36→23:15)
--- NOTE | 2021-05-03 05:40 | NURSING ---
0530: pt calls nurse into room stating he is having trouble breathing. Vitals stable. SpO2 96% on room air. Lungs clear in all james anterior and posterior. Skin color WNL. No increased WOB noted. Remains edematous. Urine output adequate. Abdominal binder over upper abdomen and lower chest. Readjusted abdominal binder. Pulled up and repositioned in bed. Incouraged IS use. Pt states this helped. Surgeon in to assess pt. He states to leave abdominal binder off but to cover peg tubing with ABDs and secure well to abdomen. Task completed. Will monitor.
--- NOTE | 2021-05-03 06:34 | NURSING ---
Pt resting quietly in bed. Denies SOB. No increased WOB noted. Lungs clear. SpO2 97% on RA. respirations 18.
[2021-05-03 06:39] LABS: Absolute Lymphocyte Count 0.69 X10^3/uL (0.83-4.51); Absolute Neutrophil Count 10.4 X10^3/uL (2.0-7.7); Hematocrit 26.6 % (40-54); Hemoglobin 8.8 g/dL (13.0-16.5); Lymphocyte # 0.69 X10^3/ul (0.83-4.51); Lymphocyte % 5.9 % (19-41); Mean Corp Hgb Conc 33.1 g/dL (32-36); Mean Corpuscular Hgb 28.3 pg (27.0-32.0); Mean Corpuscular Volume 85.5 fL (80-94); Mean Platelet Vol. 9.8 fl (6.2-12.0); Monocyte# 0.56 X10^3/uL; Monocyte% 4.8 % (0-10); NRBC Flagged by Analyzer 0.2 % (0-5); Neutrophil # 10.44 X10^3/uL (2.7-7.7); Neutrophil % 88.7 % (47-70); Platelet Count 161 K/mm3 (150-450); RBC Distribution Width CV 19.8 % (11.6-14.6); RBC Distribution Width SD 61.1 fl (35.1-43.9); Red Blood Count 3.11 M/mm3 (4.6-6.2); White Blood Count 11.8 K/mm3 (4.4-11.0)
[2021-05-03 07:16] LABS: Albumin, Serum 1.5 g/dL (3.2-5.0); Anion Gap 9 (5-15); BUN 54 mg/dL (7-18); BUN/Creat Ratio 19.2 RATIO (10-20); Calcium,Total 7.9 mg/dL (8.5-10.1); Chloride 116 mmol/L (98-107); Creatinine, Serum 2.81 mg/dL (0.70-1.30); EST Glomerular Filtration Rate 23 mL/min (>60); Est Glom Filt Rate - Afr Amer 28 mL/min (>60); Estimated Creatinine Clearance 18.61 ml/min; Glucose 259 mg/dL (74-106); Potassium 4.5 mmol/L (3.5-5.1); Sodium Level 142 mmol/L (136-145)
--- NOTE | 2021-05-03 08:15 | PCM.PN.HOSP ---
Subjective Subjective Seen and examined. I know this patient had ID consult on the day of surgery. Patient has multiple comorbidities Since I saw him last, his NG tube was removed. Patient has fluid retention mainly in legs, third spacing in bowel. No tachypnea. Pulse ox 93% on room air. No fever. Objective Data Objective Data Vital Signs: Vital Signs Temp Pulse Resp BP Pulse Ox 96.8 F L 80 16 153/92 H 95 05/02/21 20:00 05/03/21 07:21 05/02/21 20:00 05/02/21 20:00 05/02/21 20:00 Oxygen Flow Rate (L/min) 4 Oxygen Delivery Method Room Air Weight: 165 lb 12.602 oz Body Mass Index (BMI) 26.2 Intake & Output: Intake and Output for Last 24 Hours 05/01/21 05/02/21 05/03/21 23:59 23:59 23:59 Intake Total 2804.17 / 2804.17 1970 / 1970 30 / 30 Output Total 450 / 450 390 / 390 Balance 2354.17 / 2354.17 1580 / 1580 30 30 Lab / Micro Data Result Diagrams: 05/03/21 06:16 05/03/21 06:16 Labs: Laboratory Results - last 24 hr 05/02/21 11:00: POC Glucose 198 H 05/02/21 16:32: POC Glucose 186 H 05/02/21 23:31: POC Glucose 226 H 05/03/21 05:15: POC Glucose 250 H 05/03/21 06:16: Sodium 142, Potassium 4.5, Chloride 116 H, Carbon Dioxide 17.0 L, Anion Gap 9, BUN 54 H, Creatinine 2.81 H, Estim Creat Clear Calc 18.61, Est GFR (MDRD) Af Amer 28 L, Est GFR (MDRD) Non-Af 23 L, BUN/Creatinine Ratio 19.2, Glucose 259 H, Calcium 7.9 L, Phosphorus 4.0, Albumin 1.5 L 05/03/21 06:16: WBC 11.8 H, RBC 3.11 L, Hgb 8.8 L, Hct 26.6 L, MCV 85.5, MCH 28.3, MCHC 33.1, RDW Std Deviation 61.1 H, RDW Coeff of Armani 19.8 H, Plt Count 161, MPV 9.8, Immature Gran % (Auto) 0.600, Neut % (Auto) 88.7 H, Lymph % (Auto) 5.9 L, [place] % (Auto) 4.8, Eos % (Auto) 0.0, Baso % (Auto) 0.0, Absolute Neuts (auto) 10.4 H, Absolute Lymphs (auto) 0.69 L, Nucleated RBC % 0.2 Micro: Microbiology 04/30/21 06:50 Urine Catheter - Ferrari Urine Culture - Final Culture exhibits no growth. Physical Exam Narrative General: Awake, fatigue, oriented x3. HEENT: Atraumatic, PERRLA, EOMI, Normocephalic Oral: Oral mucosa dry. NG tube. Neck: Supple, No JVD, Negative Carotid Bruits Lungs: Air entry diminished in bilateral lung bases. No crepitation/rhonchi. Lungs clear Cardiovascular: Sinus rhythm, heart rate in 70s, Normal S1, Normal S2, No murmurs Abdomen: Abdominal dressing dry. PEG tube. Surgical bandage applied on it. : Status post prostatectomy. Ferrari catheter 10 Kinyarwanda. Clear urine. No suprapubic tenderness. Extremities: Right BKA. Left lower extremity below-knee pitting edema, Capillary Refill Less than 3 Seconds Skin: No rashes, No breakdown Musculoskeletal: No Tenderness to Palpation of Joints or Extremities. Neurological: Cranial nerves II-XII grossly intact, DTR 2+/4 Psych/Mental Status: Dementia. Assessment & Plan Assessment/Plan (1) Bradycardia: PLAN: 1. Transverse colon mass with large and small bowel obstruction with invasion into stomach: Patient had open extended right hemicolectomy to distal transverse colon with en bloc partial gastrectomy. Patient NG tube was removed. Diet has been allowed by the surgeon. Lasix 20 mg IV 1 dose given for leg swelling. Positive fluid balance about 1500 mL. 2. PUMA with prostate cancer status prostatectomy with chronic with restriction status Ferrari catheter: Dr. Gordillo is aware. Keep the Ferrari catheter. Patient creatinine was normal 0.9 in November 2018. After that, November 2020 creatinine 1.41 and since then it is going up. Currently, downward trends for last 2 days. Total charted urine output 390 mL. 3. Bradycardia during perioperative duration, resolved: Patient home medication propanol is held. Twelve-lead EKG on 12/02/2020 shows sinus rhythm with first-degree AV block. QTC 428 ms. Electrolytes sodium 142. K4.5. Bicarb 17. Chloride 116. 4. Diabetes mellitus type II: Last A1c 5.7. On Accu-Cheks. 5. Hypertension: Blood pressure is controlled. 6. Acute DVT of left common femoral vein on 04/22/2021 status post IVC filter: Patient had preop Lovenox and preoperative IVC filter placed. With hemoglobin on lower side 8.8, anticoagulant is being held by surgeon. Patient had IVC filter. 7. Other multiple comorbidities include dementia, chronic normocytic anemia, decreased functional status and moderate protein calorie malnutrition: Charges/Coding Visit Charges Inpatient E&M: 09496 Subs Hosp L2
[2021-05-03] MEDS: Magnesium Chloride 64 MG Delay Rel.Tablet 128 MG PO ×2 (09:17)
[2021-05-03] MEDS: Ensure Clear 120 ML Liquid PO ×2 (09:17→18:37)
[2021-05-03 09:24] LABS: International Normalized Ratio 1.1; Prothrombin Time (Protime)PT. 13.3 SECONDS (11.7-14.9)
--- NOTE | 2021-05-03 10:50 | PN.RENAL_ITS ---
Subjective Subjective Denies nausea, vomiting, shortness of breath. Denies abdominal pain. Positive flatus. Received IV Lasix x1 last night for shortness of breath. Creatinine increased from 2.7-2.8. Albumin low at 1.5. Objective Data Objective Data Vital Signs: Vital Signs Temp Pulse Resp BP Pulse Ox 97.5 F L 82 18 120/79 94 05/03/21 09:25 05/03/21 09:25 05/03/21 09:25 05/03/21 09:25 05/03/21 09:25 Oxygen Flow Rate (L/min) 4 Oxygen Delivery Method Room Air Weight: 75.2 kg Body Mass Index (BMI) 26.2 Intake & Output: Intake and Output for Last 24 Hours 05/01/21 05/02/21 05/03/21 23:59 23:59 23:59 Intake Total 2804.17 / 2804.17 1969 / 1969 170 / 170 Output Total 450 / 450 390 / 390 Balance 2354.17 / 2354.17 1580 / 1580 170 / 170 Lab / Micro Data Result Diagrams: 05/03/21 06:16 05/03/21 06:16 Labs: Laboratory Results - last 24 hr 05/02/21 11:00: POC Glucose 198 H 05/02/21 16:32: POC Glucose 186 H 05/02/21 23:31: POC Glucose 226 H 05/03/21 05:15: POC Glucose 250 H 05/03/21 06:16: Sodium 142, Potassium 4.5, Chloride 116 H, Carbon Dioxide 17.0 L , Anion Gap 9, BUN 54 H, Creatinine 2.81 H, Estim Creat Clear Calc 18.61, Est GFR (MDRD) Af Amer 28 L, Est GFR (MDRD) Non-Af 23 L, BUN/Creatinine Ratio 19.2, Glucose 259 H, Calcium 7.9 L, Phosphorus 4.0, Albumin 1.5 L 05/03/21 06:16: WBC 11.8 H, RBC 3.11 L, Hgb 8.8 L, Hct 26.6 L, MCV 85.5, MCH 28.3, MCHC 33.1, RDW Std Deviation 61.1 H, RDW Coeff of Armani 19.8 H, Plt Count 161, MPV 9.8, Immature Gran % (Auto) 0.600, Neut % (Auto) 88.7 H, Lymph % (Auto) 5.9 L, [place] % (Auto) 4.8, Eos % (Auto) 0.0, Baso % (Auto) 0.0, Absolute Neuts (auto) 10.4 H, Absolute Lymphs (auto) 0.69 L, Nucleated RBC % 0.2 05/03/21 08:53: PT 13.3, INR 1.1 Micro: Microbiology 04/30/21 06:50 Urine Catheter - Ferrari Urine Culture - Final Culture exhibits no growth. Physical Exam Const alert and oriented x3 Constitutional Narrative: Generalized chronic tremors, staccato voice General Appearance: cooperative and comfortable Resp clear to auscultation bilaterally Cardio regular rate and no murmurs GI non-tender and non-distended GI Narrative: PEG placement Auscultation: hypoactive bowel sounds Palpation: soft Extremity Extremity Narrative: Minimal third spacing Neuro Sensorium / Orientation: awake and alert Assessment & Plan Assessment/Plan (1) Acute renal failure: QUALIFIERS: Acute renal failure type: unspecified Qualified Code(s): N17.9 - Acute kidney failure, unspecified PLAN: oligoanuric PUMA. Prerenal event with dark berna urine. FeNa <1 to suggest sodium avid state. UA with high specific gravitiy. iv fluids discontinued. Mild third spacing likely due to hypoalbuminemia. Creatinine 2.8 today. Baseline creatinine 1.4-1.6. Hold further Lasix. (2) Metabolic acidosis: PLAN: replace with iv fluids if acidosis worsens. Bicarb improved to 16 t kamar (3) diabetes mellitus type II: PLAN: stable (4) hypertension: PLAN: stable (5) Acute deep venous thrombosis: PLAN: LLE s/p IVC filter 04/26/21 (6) Colon cancer: QUALIFIERS: Colon location: transverse Qualified Code(s): C18.4 - Malignant neoplasm of transverse colon PLAN: s/p rt hemicolectomy with PEG (7) Anemia: QUALIFIERS: Anemia type: unspecified type Qualified Code(s): D64.9 - Anemia, unspecified PLAN: hgb 9.3g (8) History of prostate cancer: (9) UTI (urinary tract infection): PLAN: urine c/s no growth. continue with iv antibx. Leukocytosis improvi ng
[2021-05-03 13:11] LABS: Bedside Glucose 226 mg/dL (70-110)
--- NOTE | 2021-05-03 13:47 | CHAPLAIN ---
Type of Pastoral Visit _x__ Initial Visit ___ Follow-up Visit ___ On-call Visit ___ General Patient Visit ___ Spiritual Assessment ___ Family Conference ___ Bereavement ___ Rapid Response ___ Code Blue ___ Other (describe below) Pastoral Care Referral From _x__ Patient _x__ Family ___ Nurse ___ Physician ___ Counter Professional ___ Park Maintainer ___ Other (describe below) Sacrament/Intervention _x__ Active listening ___ Anointing ___ Mu-Ism ___ Bereavement ___ Communion ___ Caitie exploration ___ ___ Life review _x__ Prayer ___ Reconciliation ___ Sacrament of Sick _x__ Supportive presence ___ Wedding ___ Other (describe below) Pastoral Comments spouse in the room with patient; spouse is looking to talk to the RN since spouse just arrived; spouse states concern about the patient's condition; spouse went to unit desk to request update on pt; meanwhile pt lies still in bed with eyes close; pt will answer questions but remains quiet; pt agress to have a prayer but states that I just want to rest now; pt and family known to this non destructive testing specialist and they request future visits
--- NOTE | 2021-05-03 14:31 | CASEMGMT ---
YEFRI met with patient's as patient is not doing well with therapy. After some discussion patient's said she would like patient to go to [facility]. YEFRI let her know SW can check to see if they have beds available. YEFRI spoke with Frances in TCU and they will have a bed for patient. Patient has [facility] so YEFRI has to fax clinicals to [facility]. [facility] then lets SW know if they agree with the request for SNF. Once they agree then Frances in TCU would have to get the actual pre-cert. YEFRI faxed clinicals to [facility]. Carla Schilling PLANNING INTERN YAMILKA
--- NOTE | 2021-05-03 14:45 | PN_ITS ---
Progress Note Per nursing report the patient has poor oral intake. This unfortunately was the same problem encountered preoperatively. Assessment & Plan Assessment/Plan (1) Colon cancer: QUALIFIERS: Colon location: transverse Qualified Code(s): C18.4 - Malignant neoplasm of transverse colon PLAN: The patient has had flatus and a large bowel movement. Clinical findings suggest his GI system is functional. Unfortunately preoperatively the patient had extraordinarily poor oral intake. This appears to be continuing postoperatively. This is one of the reasons I placed the PEG tube was concerned that he would require supplemental nutrition postoperatively. We will institute a diabetic appropriated tube feeding at 15 cc an hour. We will take great care to continue to protect the PEG tube from possible accidental removal. Additionally we will initiate discharge planning is anticipated he will need a long-term facility. Vince English M.D., F.A.C.S.
--- NOTE | 2021-05-03 15:05 | CASEMGMT ---
SW spoke with patient's and let her know that [facility] will have a bed for patient when he is ready. She thanked SW for letting her know this information. Plan: [facility] pending insurance approval. Carla PRATHER
--- NOTE | 2021-05-03 15:18 | NURSING ---
This RN reviewed SN charting
--- NOTE | 2021-05-03 15:48 | PCM.PN.BLA ---
Progress Note Patient is not taking much oral intake. This is the same problem that we confronted preoperatively. This is the reason that I placed a PEG tube. Physical Exam GI GI Narrative: Abdomen is very soft and decompressed and nontender. Bowel sounds are present though hypoactive Assessment & Plan Assessment/Plan (1) Colon cancer: QUALIFIERS: Colon location: transverse Qualified Code(s): C18.4 - Malignant neoplasm of transverse colon PLAN: Clinically his abdomen is very benign. I will initiate Glucerna tube feeding at a low rate of 15 cc an hour. I have encouraged his to assist him with picking out supper tonight and assisting him with eating it when he is fully upright. His IV fluids have been ceased and I am now trying to get him to take oral intake at the same time that I anticipate him starting to mobilize some of his third spaced fluids. He is having urine output although it is more generalized. Vital signs remaining stable however. Vince English M.D., F.A.C.S.
--- NOTE | 2021-05-03 16:40 | CHAPLAIN ---
Type of Pastoral Visit ___ Initial Visit _x__ Follow-up Visit ___ On-call Visit ___ General Patient Visit ___ Spiritual Assessment ___ Family Conference ___ Bereavement ___ Rapid Response ___ Code Blue ___ Other (describe below) Pastoral Care Referral From ___ Patient _x__ Family ___ Nurse ___ Physician ___ Mirror Fabrication Supervisor ___ Galvanometer Assembler ___ Other (describe below) Sacrament/Intervention ___ Active listening ___ Anointing ___ Confucianist ___ Bereavement ___ Communion ___ Caitie exploration ___ ___ Life review ___ Prayer ___ Reconciliation ___ Sacrament of Sick _x__ Supportive presence ___ Wedding ___ Other (describe below) Pastoral Comments conversation with spouse about need for her support and encouragement; pt is uninterested in eating and helping himself today and spouse expresses discouragement
[2021-05-03 18:46] LABS: Bedside Glucose 190 mg/dL (70-110)
[2021-05-03] MEDS: Vital AF 1.2 Cal Liquid 1,000 ML 15 ML GT (20:31)
--- NOTE | 2021-05-03 21:48 | NURSING ---
When checking VS at 2029, pt was reading 84% on RA with finger pulse ox and good waveform. Pt placed on 3L O2 and pulse ox increased to 95%. Pt now refusing to keep O2 on. States he does not want to wear it and will continue to take it off if RN keeps putting O2 on. Checked O2 with finger pulse ox and read 83% on RA with good waveform. RN used ear probe to verify O2 since pts fingers are cool and pale and it read 97% on RA with good waveform. Will keep o2 off at this time and continue to monitor.
--- NOTE | 2021-05-03 22:18 | NURSING ---
Attempted to stand pt at EOB with 4 assist. pt unable to bear weight to LLE for more than a few seconds. Could not pivot. Could not get prosthetic on RBKA d/t swelling. placed pt back in bed and repositioned for comfort. R stump elevated on pillow in hopes to decrease swelling. This RN attempted to have pt use IS but pt refused and would not allow RN to instruct on use.
[2021-05-03] MEDS: Furosemide 20 MG/2 ML VIAL IV (23:13)
[2021-05-03 23:21] LABS: Bedside Glucose 189 mg/dL (70-110)
[2021-05-03] MEDS: Albuterol 2.5 MG/3 ML VIAL.NEB. INHALATION (23:55)
[2021-05-04] VITALS (16 sets, daily range): BP systolic 96–138; BP diastolic 58–109; PULSE 57–78; RESP 18–33; TEMP 35.8–36.8; O2SAT 79–95
--- NOTE | 2021-05-04 00:24 | RAD_ITS ---
STUDY: X-RAY CHEST REASON FOR EXAM: Male, 81 years old. Shortness of breath. As per discussion with the nurse caring for the patient, the patient has had a recent colectomy. TECHNIQUE: Single AP portable view of the chest. COMPARISON: April 22, 2021. FINDINGS: Lungs are hypoinflated. There is significant free air under the right hemidiaphragm related to recent surgery. Patchy densities in the right cardiophrenic angle and left perihilar region. No effusions. No pneumothorax. Normal size heart. Normal mediastinum and annetta. Normal visualized pulmonary arteries. Normal visualized aortic arch and descending thoracic aorta. Normal visualized thoracic spine. Normal visualized ribs, clavicles, and shoulders. There is no demonstrated abnormality of the visualized soft tissue structures of the upper abdomen. RAD/Chest 1 View (Portable) IMPRESSION: Bilateral lung opacities left greater than right probably representing pneumonia. Subsegmental atelectasis is a consideration. Hypoinflation. Free air under the right hemidiaphragm related to recent bowel surgery. Electronically Signed: Yeison Platt MD at 2:45 EST , Service support ,
[2021-05-04] MEDS: Piperacil/Tazobactam 3.375 GM Q12 PREMIX IV ×2 (04:05→20:55)
--- NOTE | 2021-05-04 04:19 | NURSING ---
Zosyn and Vanc would not scan into AUG. Zosyn verified by this RN, pharmacist Ladarius, and LOVELY Rojas. Vancomycin verified by this RN, pharmacist Ladarius, and Temitope MURRY. Zosyn hung 05/045. Vancomycin hung 05/04 0420.
[2021-05-04] MEDS: Vancomycin IV 1,000 MG/200 ML BAG 200 MG IV (04:20)
--- NOTE | 2021-05-04 04:41 | PHA.PHARE_ITS ---
Consult Pharmacy has been consulted to manage selected antiobiotic: Vancomycin Type of Consult: New start Labs: Sodium 142 mmol/L (136-145) 05/03/21 06:16 Potassium 4.5 mmol/L (3.5-5.1) 05/03/21 06:16 Chloride 116 mmol/L (98-107) H 05/03/21 06:16 Carbon Dioxide 17.0 mmol/L (21.0-32.0) L 05/03/21 06:16 Anion Gap 9 (5-15) 05/03/21 06:16 BUN 54 mg/dL (7-18) H 05/03/21 06:16 Creatinine 2.81 mg/dL (0.70-1.30) H 05/03/21 06:16 Est GFR (MDRD) Af Amer 28 mL/min (>60) L 05/03/21 06:16 Est GFR (MDRD) Non-Af 23 mL/min (>60) L 05/03/21 06:16 BUN/Creatinine Ratio 19.2 RATIO (10-20) 05/03/21 06:16 Glucose 259 mg/dL (74-106) H 05/03/21 06:16 Microbiology: Microbiology 04/30/21 06:50 Urine Catheter - Ferrari Urine Culture - Final Culture exhibits no growth. Goal Trough: 15-20 mcg/mL Pharmacy Plan for Drug Dosing: Pharmacy Service will continue to monitor and adjust dosing as required. 1GM GIVEN 05/04 IN AM (COMPUTER ISSUES, NOT SURE OF TIME) CRCl 18.6 NON- DIALYSIS DO RANDOM TROUGH WITH MORNING LABS IN 05/06 AND DOSE ACCORDINGLY Follow-Up Labs: Trough Vancomycin Labs to be done on [date and time ordered]: 05/06 @ 0600 RANDOM
[2021-05-04] MEDS: Insulin Lispro 100 UNIT/ML INSULN.PEN SC ×2 (05:38→17:22)
[2021-05-04] MEDS: Propranolol 10 MG Tablet 30 MG PO ×2 (05:38→14:10)
[2021-05-04 05:46] LABS: Bedside Glucose 196 mg/dL (70-110)
--- NOTE | 2021-05-04 05:50 | PCM.PN.SRG ---
Subjective Subjective Patient noted to have increased oxygen requirements last night. Chest x-ray was obtained suggesting atelectasis/pneumonia. Cannot exclude pulmonary congestion. Vancomycin Zosyn initiated. This was all performed remotely Objective Data Objective Data Vital Signs: Vital Signs Temp Pulse Resp BP Pulse Ox 98.2 F 78 18 112/79 95 05/04/21 04:27 05/04/21 04:27 05/04/21 04:27 05/04/21 04:27 05/04/21 04:27 Oxygen Flow Rate (L/min) 4 Oxygen Delivery Method Nasal Cannula Weight: 165 lb 12.602 oz Body Mass Index (BMI) 26.2 Intake & Output: Intake and Output for Last 24 Hours 05/02/21 05/03/21 05/04/21 23:59 23:59 23:59 Intake Total 1970 / 1970 1200 / 1200 1030 / 1030 Output Total 390 / 390 125 / 125 Balance 1580 / 1580 1200 / 1200 905 / 905 Medical Nutrition Assessment Dietitian: Malnutrition Criteria Met Start: 05/03/21 12:08 Freq: Status: Active Protocol: Document 05/03/21 12:09 RMA (Rec: 05/03/21 12:09 RMA [id number]) Nutrition Malnutrition Evidence of Malnutrition Exists Yes Malnutrition (severe): Chronic Evidenced By Suboptimal Energy Intake ( Severe),Weight Loss (Severe) Intake Problem Inadequate Oral Intake Etiology related to reported nausea, 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 as evidenced estimated PO intake meeting <75% of estimated nutritional needs x 3 months, unintentional wt loss Status Active Problem Clinical Problem Chronic Disease or Condition Related Malnutrition Etiology severe malnutrition r/t inadequate energy intake d/t GI dysfunction Signs/Symptoms as evidenced by estimated PO intake meeting <75% of estimated nutritional needs x 3 months, unintentional wt loss of 28#/15% wt loss < 6 months Status Active Problem Recommendation Dietitian Recommendations/Changes 1) Continue 1800 calorie/ consistent carbohydrate diet w / ensure clear TID (medpass) as ordered; adjust diet as needed once intake better established with solid food. 2) If PEG is desired to be used for enteral nutrition support, recommend Vital AF 1. 2 at goal rate of 65mL/hour w/ 100mL H2O flush every 4 hours to provide 1872 calories, 117 g protein, and 1865mL total fluid/day. Would start at 25mL /hour and gradually increase by 10mL/hour every 8-12 hours as pt tolerates until goal rate is achieved. As ordered, enteral nutrition would meet 100% of estimated nutritional needs. 3) Daily wts. 4) Will adjust EN recommendations if pt able to consume some nutrition via PO diet; if pt going to be completely NPO would recommend transition to bolus enteral nutrition feedings and will adjust recommendations if indicated. Lab / Micro Data Result Diagrams: 05/03/21 06:16 05/03/21 06:16 Labs: Laboratory Results - last 24 hr 05/03/21 06:16: Sodium 142, Potassium 4.5, Chloride 116 H, Carbon Dioxide 17.0 L, Anion Gap 9, BUN 54 H, Creatinine 2.81 H, Estim Creat Clear Calc 18.61, Est GFR (MDRD) Af Amer 28 L, Est GFR (MDRD) Non-Af 23 L, BUN/Creatinine Ratio 19.2, Glucose 259 H, Calcium 7.9 L, Phosphorus 4.0, Albumin 1.5 L 05/03/21 06:16: WBC 11.8 H, RBC 3.11 L, Hgb 8.8 L, Hct 26.6 L, MCV 85.5, MCH 28.3, MCHC 33.1, RDW Std Deviation 61.1 H, RDW Coeff of Armani 19.8 H, Plt Count 161, MPV 9.8, Immature Gran % (Auto) 0.600, Neut % (Auto) 88.7 H, Lymph % (Auto) 5.9 L, [place] % (Auto) 4.8, Eos % (Auto) 0.0, Baso % (Auto) 0.0, Absolute Neuts (auto) 10.4 H, Absolute Lymphs (auto) 0.69 L, Nucleated RBC % 0.2 05/03/21 08:53: PT 13.3, INR 1.1 05/03/21 13:01: POC Glucose 226 H 05/03/21 18:39: POC Glucose 190 H 05/03/21 23:14: POC Glucose 189 H 05/04/21 05:37: POC Glucose 196 H Micro: Microbiology 04/30/21 06:50 Urine Catheter - Ferrari Urine Culture - Final Culture exhibits no growth. Radiography Diagnostic Testing: Radiology Impression Chest X-Ray 05/04/21 00:24 IMPRESSION: Bilateral lung opacities left greater than right probably representing pneumonia. Subsegmental atelectasis is a consideration. Hypoinflation. Free air under the right hemidiaphragm related to recent bowel surgery. Electronically Signed: Yeison Platt MD at 2:45 EST , Service support , Physical Exam Narrative Patient is arousable, appears more lethargic, breath sounds apically and anteriorly are clear, Resp Resp Narrative: Patient will not participate in pulling himself forward to listen to his back. GI GI Narrative: Abdomen is very soft, nontender, bowel sounds are present, dressings are intact Assessment & Plan Assessment/Plan (1) Colon cancer: QUALIFIERS: Colon location: transverse Qualified Code(s): C18.4 - Malignant neoplasm of transverse colon PLAN: The patient did not take much in orally yesterday. Because of that I initiated a low rate of IV fluid last night at 30 cc an hour and I initiated Glucerna tube feeding at 15 cc an hour. There has been no evidence of residuals or evidence to suggest reflux of the tube feeding. Apparently even before the tube feeding was started the patient was noted to have low O2 saturation. I will need primary care nephrology review to assist with diagnosis and treatment. Patient's not febrile. Morning laboratory pending but yesterday he had an improved white count. There is no productive cough or sputum. He has a significant amount of third spaced fluids. Urine output remains marginal We will need to do determine fluid requirements. We will need to determine potential need for temporary dialysis. Vancomycin and Zosyn were initiated. I will attempt to obtain I have requested an attempt at obtaining sputum culture. His abdominal binder will be discontinued so as not to aggravate atelectasis. His tube will need to be aggressively taped because if it were to be removed by the patient it would require a trip to the operating room to repair the hole in the stomach and replace Vince English M.D., F.A.C.S.
--- NOTE | 2021-05-04 06:53 | NURSING ---
updated dr Torres via imprivata on pt condition per Dr English request
[2021-05-04 08:18] LABS: Absolute Lymphocyte Count 0.79 X10^3/uL (0.83-4.51); Absolute Neutrophil Count 9.1 X10^3/uL (2.0-7.7); Basophil# 0.01 X10^3/uL; Basophil% 0.1 % (0-1); Hematocrit 29.3 % (40-54); Hemoglobin 9.5 g/dL (13.0-16.5); Lymphocyte # 0.79 X10^3/ul (0.83-4.51); Lymphocyte % 7.3 % (19-41); Mean Corp Hgb Conc 32.4 g/dL (32-36); Mean Corpuscular Hgb 27.3 pg (27.0-32.0); Mean Corpuscular Volume 84.2 fL (80-94); Mean Platelet Vol. 10.6 fl (6.2-12.0); Monocyte# 0.76 X10^3/uL; Monocyte% 7.1 % (0-10); NRBC Flagged by Analyzer 1.1 % (0-5); Neutrophil # 9.14 X10^3/uL (2.7-7.7); Neutrophil % 84.8 % (47-70); Platelet Count 153 K/mm3 (150-450); RBC Distribution Width CV 19.2 % (11.6-14.6); Red Blood Count 3.48 M/mm3 (4.6-6.2); White Blood Count 10.8 K/mm3 (4.4-11.0)
[2021-05-04 08:47] LABS: Anion Gap 13 (5-15); BUN 62 mg/dL (7-18); BUN/Creat Ratio 19.6 RATIO (10-20); Calcium,Total 7.9 mg/dL (8.5-10.1); Chloride 114 mmol/L (98-107); Creatinine, Serum 3.16 mg/dL (0.70-1.30); EST Glomerular Filtration Rate 20 mL/min (>60); Est Glom Filt Rate - Afr Amer 24 mL/min (>60); Estimated Creatinine Clearance 16.54 ml/min; Glucose 166 mg/dL (74-106); Potassium 3.4 mmol/L (3.5-5.1); Sodium Level 141 mmol/L (136-145)
[2021-05-04 09:34] LABS: Urine Sodium < 5 mmol/L (Not Establ.)
--- NOTE | 2021-05-04 10:39 | CON.PCM.ID_ITS ---
Assessment & Plan Assessment/Plan (1) Acute renal failure: QUALIFIERS: Acute renal failure type: unspecified Qualified Code(s): N17.9 - Acute kidney failure, unspecified (2) History of renal disease: (3) Colonic mass: PLAN: Taken to OR 04/29/[address] English for R hemicolectomy with en bloc partial gastrectomy and PEG placement. Path showed gastritis, h.pylori neg. Not clear to me if diagnosis of cancer is confirmed. Now with PUMA on CKD, neph following. Worsened hypoxia overnight, abx changed from ceftriaxone to vanc/zo syn. Ucx has been neg here. Relatively asymptomatic this AM. No fever, wbc has normalized. Will check procalcitonin and MRSA nares screen. Not coughing or producing sputum. With hypoxia, unvaccinated status, and lymphopenia, will check covid pcr. Ok to continue empiric abx for now, but so far low suspicion for new bacterial pneumonia; suspect mostly fluid related. If MRSA nares pcr is neg, would stop vanc. Will follow, thank you, d/w Dr. Lowe HPI Consult Data Date of Consult: 05/04/21 HPI Narrative HPI Narrative: VIKRAM PORTER, is a 81 M with h/o prostate cancer, CKD, who presented 04/29 due to abd pain, weight loss, nausea, and colon mass. Taken to OR 04/[address] English for R hemicolectomy with en bloc partial gastrectomy and PEG placement. Path showed gastritis, h.pylori neg. Treated for suspected uti with ceftriaxone 04/30 to 05/03. Neph following for PUMA. Worsened O2 last night, changed to vanc/zosyn for possible pneumonia. Pt denies fever, chills, cough, SOB, abd pain, n/v/d. Has white in place. No change in taste or smell or muscle aches. Has not had covid vaccine. Full ROS performed and neg except as noted above [facility] Medical History Cancer Colonic mass Colonic mass Colonic mass Dementia Diabetes DVT (deep venous thrombosis) Essential tremor Gastric reflux History of renal disease Hypertension Kidney disease Non-smoker Rash Sleep apnea Subdural hematoma Walker as ambulation aid Home Medications coenzyme Q10 [Co Q-10] 100 mg PO DAILY 03/13/14 [History Last Taken 04/26/21] vitamin B complex 1 cap PO DAILY 08/17/16 [History Last Taken 04/26/21] Advanced Memory Formula 1 tablet PO/SL DAILY 11/27/18 [History Last Taken 04/26/21] propranolol 30 mg PO TID 11/27/18 [History Last Taken 04/28/21] ascorbic acid (vitamin C) [Vitamin C] 500 mg PO DAILY 04/28/21 [History Last Taken Unknown] cholecalciferol (vitamin D3) [Vitamin D3] 125 mcg PO DAILY 04/28/21 [History Last Taken Unknown] enoxaparin [Lovenox] 80 mg SUBCUT Q12H 04/28/21 [History Last Taken 04/28/21] magnesium 250 mg PO DAILY 04/28/21 [History Last Taken Unknown] Allergy/AdvReac Type Severity Reaction Status Date / Time No Known Allergies Allergy Verified 04/26/21 10:28 Family History Mother Hypertension CAD (coronary artery disease) Surgical History H/O esophagogastroduodenoscopy History of superior vena cava filter placement S/P colonoscopy S/P craniotomy S/P lower limb amputation S/P prostatectomy Social History Smoking Status: Never smoker alcohol intake: current Physical Exam Const alert, oriented x3 and no apparent distress General Appearance: cooperative Exam Limitations: no limitations HEENT normocephalic and head/scalp atraumatic Eyes PERRL and EOMs intact bilaterally Neck supple and No nodes Resp clear to auscultation bilaterally Auscultation: diminished lung sounds Cardio regular rate and regular rhythm GI normal to inspection, nondistended, normoactive bowel sounds Extremity no clubbing, cyanosis or edema Skin no rashes or lesions noted Neuro CN's II-XII intact bilaterally Medical Records Data Medical Nutrition Assessment Dietitian: Malnutrition Criteria Met Start: 05/03/21 12:08 Freq: Status: Active Protocol: Document 05/03/21 12:09 RMA (Rec: 05/03/21 12:09 RMA [id number]) Nutrition Malnutrition Evidence of Malnutrition Exists Yes Malnutrition (severe): Chronic Evidenced By Suboptimal Energy Intake ( Severe),Weight Loss (Severe) Intake Problem Inadequate Oral Intake Etiology related to reported nausea, 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 evidenced estimated PO intake meeting <75% of estimated nutritional needs x 3 months, unintentional wt loss Status Active Problem Clinical Problem Chronic Disease or Condition Related Malnutrition Etiology severe malnutrition r/t inadequate energy intake d/t GI dysfunction Signs/Symptoms as evidenced by estimated PO intake meeting <75% of estimated nutritional needs x 3 months, unintentional wt loss of 28#/15% wt loss < 6 months Status Active Problem Recommendation Dietitian Recommendations/Changes 1) Continue 1800 calorie/ consistent carbohydrate diet w / ensure clear TID (medpass) as ordered; adjust diet as needed once intake better established with solid food. 2) If PEG is desired to be used for enteral nutrition support, recommend Vital AF 1. 2 at goal rate of 65mL/hour w/ 100mL H2O flush every 4 hours to provide 1872 calories, 117 g protein, and 1865mL total fluid/day. Would start at 25mL /hour and gradually increase by 10mL/hour every 8-12 hours as pt tolerates until goal rate is achieved. As ordered, enteral nutrition would meet 100% of estimated nutritional needs. 3) Daily wts. 4) Will adjust EN recommendations if pt able to consume some nutrition via PO diet; if pt going to be completely NPO would recommend transition to bolus enteral nutrition feedings and will adjust recommendations if indicated. Lab / Micro Data Result Diagrams: 05/04/21 07:54 05/04/21 07:54 Labs: Laboratory Results - last 24 hr 05/03/21 13:01: POC Glucose 226 H 05/03/21 18:39: POC Glucose 190 H 05/03/21 23:14: POC Glucose 189 H 05/04/21 05:37: POC Glucose 196 H 05/04/21 07:54: WBC 10.8, RBC 3.48 L, Hgb 9.5 L, Hct 29.3 L, MCV 84.2, MCH 27.3, MCHC 32.4, RDW Std Deviation 59.0 H, RDW Coeff of Armani 19.2 H, Plt Count 153, MPV 10.6, Immature Gran % (Auto) 0.700, Neut % (Auto) 84.8 H, Lymph % (Auto) 7.3 L, [place] % (Auto) 7.1, Eos % (Auto) 0.0, Baso % (Auto) 0.1, Absolute Neuts (auto) 9.1 H, Absolute Lymphs (auto) 0.79 L, Nucleated RBC % 1.1 05/04/21 07:54: Sodium 141, Potassium 3.4 L, Chloride 114 H, Carbon Dioxide 14.0 L, Anion Gap 13, BUN 62 H, Creatinine 3.16 H, Estim Creat Clear Calc 16.54, Est GFR (MDRD) Af Amer 24 L, Est GFR (MDRD) Non-Af 20 L, BUN/Creatinine Ratio 19.6, Glucose 166 H, Calcium 7.9 L 05/04/21 08:50: Ur Random Sodium < 5, Urine Creatinine 225.00 Radiology Impression Chest X-Ray 05/04/21 00:24 IMPRESSION: Bilateral lung opacities left greater than right probably representing pneumonia. Subsegmental atelectasis is a consideration. Hypoinflation. Free air under the right hemidiaphragm related to recent bowel surgery. Electronically Signed: Yeison Platt MD at 2:45 EST , Service support ,
--- NOTE | 2021-05-04 11:50 | PCM.PN.BLA ---
Progress Note 1. chronic severe malnutrition r/t inadequate energy intake d/t GI dysfunction as evidenced by estimated PO intake meeting <75% of estimated nutritional needs x 3 months, unintentional wt loss of 28#/15% wt loss < 6 months with plan to: 1) Continue 1800 calorie/consistent carbohydrate diet w/ ensure clear TID (medpass) as ordered; adjust diet as needed once intake better established with solid food. 2) If PEG is desired to be used for enteral nutrition support, recommend Vital AF 1.2 at goal rate of 65mL/hour w/ 100mL H2O flush every 4 hours to provide 1872 calories, 117 g protein, and 1865mL total fluid/day. Would start at 25mL/hour and gradually increase by 10mL/hour every 8-12 hours as pt tolerates until goal rate is achieved. As ordered, enteral nutrition would meet 100% of estimated nutritional needs. 3) Daily wts. 4) Will adjust EN recommendations if pt able to consume some nutrition via PO diet; if pt going to be completely NPO would recommend transition to bolus enteral nutrition feedings and will adjust recommendations if indicated. Vince English M.D., F.A.C.S.
[2021-05-04 11:59] LABS: Procalcitonin 4.87 ng/mL (0.00-0.09)
--- NOTE | 2021-05-04 13:33 | PN.RENAL_ITS ---
Subjective Subjective pt with drop in urine output with rising creatinine. Off iv fluids. Urine sodium still low at <5. TF on hold, NPO for possible dialysis catheter placement. +BM per nursing staff. Spoke with pt at bedside. Pt restless, agitated, wants his oxygen taken off. Pulled NGT. CXR reviewed. Objective Data Objective Data Vital Signs: Vital Signs Temp Pulse Resp BP Pulse Ox 97.5 F L 57 L 18 110/64 92 05/04/21 13:15 05/04/21 13:15 05/04/21 13:15 05/04/21 13:15 05/04/21 13:15 Oxygen Flow Rate (L/min) 4 Oxygen Delivery Method Room Air Weight: 80.4 kg Body Mass Index (BMI) 26.2 Intake & Output: Intake and Output for Last 24 Hours 05/02/21 05/03/21 05/04/21 23:59 23:59 23:59 Intake Total 1970 / 1970 1200 / 1200 1640.0 / 1640.0 Output Total 390 / 390 150 / 150 Balance 1580 / 1580 1200 / 1200 1490.0 / 1490.0 Medical Nutrition Assessment Dietitian: Malnutrition Criteria Met Start: 05/03/21 12: 08 Freq: Status: Active Protocol: Document 05/03/21 12:09 RMA (Rec: 05/03/21 12:09 RMA [id number]) Nutrition Malnutrition Evidence of Malnutrition Exists Yes Malnutrition (severe): Chronic Evidenced By Suboptimal Energy Intake ( Severe),Weight Loss (Severe) Intake Problem Inadequate Oral Intake Etiology related to reported nausea, decreased appetite [employer] Signs/Symptoms as evidenced estimated PO intake meeting <75% of estimated nutritional needs x 3 months, unintentional wt loss Status Active Problem Clinical Problem Chronic Disease or Condition Related Malnutrition Etiology severe malnutrition r/t inadequate energy intake d/t GI dysfunction Signs/Symptoms as evidenced by estimated PO intake meeting <75% of estimated nutritional needs x 3 months, unintentional wt loss of 28#/15% wt loss < 6 months Status Active Problem Recommendation Dietitian Recommendations/Changes 1) Continue 1800 calorie/ consistent carbohydrate diet w / ensure clear TID (medpass) as ordered; adjust diet as needed once intake better established with solid food. 2) If PEG is desired to be used for enteral nutrition support, recommend Vital AF 1. 2 at goal rate of 65mL/hour w/ 100mL H2O flush every 4 hours to provide 1872 calories, 117 g protein, and 1865mL total fluid/day. Would start at 25mL /hour and gradually increase by 10mL/hour every 8-12 hours as pt tolerates until goal rate is achieved. As ordered, enteral nutrition would meet 100% of estimated nutritional needs. 3) Daily wts. 4) Will adjust EN recommendations if pt able to consume some nutrition via PO diet; if pt going to be completely NPO would recommend transition to bolus enteral nutrition feedings and will adjust recommendations if indicated. Lab / Micro Data Result Diagrams: 05/04/21 07:54 05/04/21 07:54 Labs: Laboratory Results - last 24 hr 05/03/21 18:39: POC Glucose 190 H 05/03/21 23:14: POC Glucose 189 H 05/04/21 05:37: POC Glucose 196 H 05/04/21 07:54: WBC 10.8, RBC 3.48 L, Hgb 9.5 L, Hct 29.3 L, MCV 84.2, MCH 27.3, MCHC 32.4, RDW Std Deviation 59.0 H, RDW Coeff of Armani 19.2 H, Plt Count 153, MPV 10.6, Immature Gran % (Auto) 0.700, Neut % (Auto) 84.8 H, Lymph % (Auto) 7.3 L, [place] % (Auto) 7.1, Eos % (Auto) 0.0, Baso % (Auto) 0.1, Absolute Neuts (auto) 9.1 H, Absolute Lymphs (auto) 0.79 L, Nucleated RBC % 1.1 05/04/21 07:54: Sodium 141, Potassium 3.4 L, Chloride 114 H, Carbon Dioxide 14.0 L, Anion Gap 13, BUN 62 H, Creatinine 3.16 H, Estim Creat Clear Calc 16.54, Est GFR (MDRD) Af Amer 24 L, Est GFR (MDRD) Non-Af 20 L, BUN/Creatinine Ratio 19.6, Glucose 166 H, Calcium 7.9 L 05/04/21 08:50: Ur Random Sodium < 5, Urine Creatinine 225.00 05/04/21 10:28: Procalcitonin 4.87 H Micro: Microbiology 04/30/21 06:50 Urine Catheter - Ferrari Urine Culture - Final Culture exhibits no growth. Radiography Diagnostic Testing: Radiology Impression Chest X-Ray 05/04/21 00:24 IMPRESSION: Bilateral lung opacities left greater than right probably representing pneumonia. Subsegmental atelectasis is a consideration. Hypoinflation. Free air under the right hemidiaphragm related to recent bowel surgery. Electronically Signed: Yeison Platt MD at 2:45 EST , Service support , Physical Exam Const alert and oriented x3 General Appearance: anxious, frail and other restless, agitated Orientation / Consciousness: awake Resp no use of accessory muscles Auscultation: diminished lung sounds Cardio regular rate and no murmurs GI non-tender and non-distended GI Narrative: PEG tube Auscultation: normoactive bowel sounds Palpation: soft Narrative: olliguric, karla berna urine Bladder / Kidney Exam: catheter in place Extremity Extremity Narrative: diffuse edema, third spacing Skin no wounds Neuro Sensorium / Orientation: awake Motor Exam: tremor Psych Psych Narrative: agitated Mood & Affect: anxious Assessment & Plan Assessment/Plan (1) Acute renal failure: QUALIFIERS: Acute renal failure type: unspecified Qualified Code(s): N17.9 - Acute kidney failure, unspecified PLAN: oligoanuric PUMA. Prerenal event with dark berna urine. FeNa <1 to suggest sodium avid state. Repeat urine sodium still low at <5 urine cr 225 with low albumin at 1.5. Suspect prerenal event, low oncotic pressure, hypotension. Trial iv fluids with iv albumin followed by lasix to help mobilize extravascular fluid. UA with high specific gravitiy. If azotemia worse with no response to iv fluids and iv albumin, will initiate dialysis tomorrow. Discussed with pt spouse at bedside, hospitalist, Dr. English and nursing staff. Check renal duplex to evaluate for renal vein thrombosis with hx DVT s/p IVC filter. Renal dose iv antibx. (2) Metabolic acidosis: PLAN: replace with iv fluids if acidosis worsens. Bicarb improved to 16 today (3) diabetes mellitus type II: PLAN: stable (4) hypertension: PLAN: stable (5) Acute deep venous thrombosis: PLAN: LLE s/p IVC filter 04/26/21 (6) Colon cancer: QUALIFIERS: Colon location: transverse Qualified Code(s): C18.4 - Malignant neoplasm of transverse colon PLAN: s/p rt hemicolectomy with PEG (7) Anemia: QUALIFIERS: Anemia type: unspecified type Qualified Code(s): D6 4.9 - Anemia, unspecified PLAN: hgb 9.3g (8) History of prostate cancer: (9) UTI (urinary tract infection): PLAN: urine c/s no growth. continue with iv antibx. Leukocytosis improving
[2021-05-04 13:41] LABS: Bedside Glucose 140 mg/dL (70-110)
[2021-05-04] MEDS: Albumin Human 25% (100 mL) 25 GM/100 ML BAG IV (14:10)
--- NOTE | 2021-05-04 15:52 | PN.HOSP_ITS ---
Subjective Subjective Seen and examined in the morning about 8 AM. I called and discussed with ID, the tractor trailer mechanic and the surgeon Dr. English. Patient remains short of breath and tachypneic. On 4 L of oxygen. Afebrile. Objective Data Objective Data Vital Signs: Vital Signs Temp Pulse Resp BP Pulse Ox 97.5 F L 57 L 18 110/64 92 05/04/21 13:15 05/04/21 13:15 05/04/21 13:15 05/04/21 13:15 05/04/21 13:15 Oxygen Flow Rate (L/min) 4 Oxygen Delivery Method Room Air Weight: 177 lb 4.026 oz Body Mass Index (BMI) 26.2 Intake & Output: Intake and Output for Last 24 Hours 05/02/21 05/03/21 05/04/21 23:59 23:59 23:59 Intake Total 1969 / 1970 1200 / 1200 1640.0 / 1640.0 Output Total 390 / 390 195 / 195 Balance 1580 / 1580 1200 / 1200 1445.0 / 1445.0 Medical Nutrition Assessment Dietitian: Malnutrition Criteria Met Start: 05/03/21 12:08 Freq: Status: Active Protocol: Document 05/04/21 14:03 RMA (Rec: 05/04/21 14:03 RMA [id number]) Nutrition Malnutrition Evidence of Malnutrition Exists Yes Malnutrition (severe): Chronic Evidenced By Suboptimal Energy Intake ( Severe),Weight Loss (Severe) Intake Problem Inadequate Enteral Nutrition Infusion Etiology related to gradual advancement as tolerance established Signs/Symptoms as evidenced by TF meeting ~25 % estimated energy needs and ~ 40% estimated protein needs Status Active Problem Inadequate Oral Intake Etiology related to reported nausea, decreased appetite RN TRAINING Signs/Symptoms as evidenced estimated PO intake meeting <75% of estimated nutritional needs x 3 months, unintentional wt loss Status Active Problem Clinical Problem Chronic Disease or Condition Related Malnutrition Etiology severe malnutrition r/t inadequate energy intake d/t GI dysfunction Signs/Symptoms as evidenced by estimated PO intake meeting <75% of estimated nutritional needs x 3 months, unintentional wt loss of 28#/15% wt loss < 6 months and need for TF support Status Active Problem Recommendation Dietitian Recommendations/Changes 1) Diet as tolerated, will adjust to sodium-restricted/ consistent-carbohydrate/ protein-restricted w/ 1500ml FR---pt is not taking significant PO; suggest regular diet if PO only for comfort and remains insignificant at meals. 2) Will d/c ensure clear TID ( medpass) poor oral intake/pt refusal. 3) Recommend Vital AF 1.2 as tolerated to goal rate of 65mL /hour w/ 40mL H2O flush every 4 hours to provide 1872 calories, 117 g protein, and 1505mL free water/day. Gradually increase by 10mL/ hour every 8-12 hours as pt tolerates until goal rate is achieved. As ordered, enteral nutrition would meet 100% of estimated nutritional needs. Will decrease estimated protein needs given renal status and consider different product as TF advanced and tolerance established if renal status remains compromised. 4) Daily weights. 5) Will adjust EN recommendations if pt able to consume some nutrition via PO diet; if pt going to be completely NPO would recommend transition to bolus enteral nutrition feedings and will adjust recommendations as indicated. Lab / Micro Data Result Diagrams: 05/04/21 07:54 05/04/21 07:54 Labs: Laboratory Results - last 24 hr 05/03/21 18:39: POC Glucose 190 H 05/03/21 23:14: POC Glucose 189 H 05/04/21 05:37: POC Glucose 196 H 05/04/21 07:54: WBC 10.8, RBC 3.48 L, Hgb 9.5 L, Hct 29.3 L, MCV 84.2, MCH 27.3, MCHC 32.4, RDW Std Deviation 59.0 H, RDW Coeff of Armani 19.2 H, Plt Count 153, MPV 10.6, Immature Gran % (Auto) 0.700, Neut % (Auto) 84.8 H, Lymph % (Auto) 7.3 L, [place] % (Auto) 7.1, Eos % (Auto) 0.0, Baso % (Auto) 0.1, Absolute Neuts (auto) 9.1 H, Absolute Lymphs (auto) 0.79 L, Nucleated RBC % 1.1 05/04/21 07:54: Sodium 141, Potassium 3.4 L, Chloride 114 H, Carbon Dioxide 14.0 L, Anion Gap 13, BUN 62 H, Creatinine 3.16 H, Estim Creat Clear Calc 16.54, Est GFR (MDRD) Af Amer 24 L, Est GFR (MDRD) Non-Af 20 L, BUN/Creatinine Ratio 19.6, Glucose 166 H, Calcium 7.9 L 05/04/21 08:50: Ur Random Sodium < 5, Urine Creatinine 225.00 05/04/21 10:28: Procalcitonin 4.87 H 05/04/21 11:15: COVID-19 ([facility]) Not Detected 05/04/21 13:14: POC Glucose 140 H Micro: Microbiology 04/30/21 06:50 Urine Catheter - Ferrari Urine Culture - Final Culture exhibits no growth. Radiography Diagnostic Testing: Radiology Impression Chest X-Ray 05/04/21 00:24 IMPRESSION: Bilateral lung opacities left greater than right probably representing pneumonia. Subsegmental atelectasis is a consideration. Hypoinflation. Free air under the right hemidiaphragm related to recent bowel surgery. Electronically Signed: Yeison Platt MD at 2:45 EST , Service support , Physical Exam Narrative General: Frail, fatigue, lethargic, oriented x3. HEENT: Atraumatic, PERRLA, EOMI, Normocephalic Oral: Oral mucosa dry. NG tube. Neck: Supple, No JVD, Negative Carotid Bruits Lungs: Air entry diminished in bilateral lung bases. No crepitation/rhonchi. Cardiovascular: Sinus rhythm, heart rate in 70s, Normal S1, Normal S2, No murmurs Abdomen: Abdominal dressing dry. PEG tube. Surgical bandage applied on it. : Status post prostatectomy. Ferrari catheter 10 German. Clear urine. No suprapubic tenderness. Extremities: Right BKA. Left lower extremity below-knee pitting edema, Capillary Refill Less than 3 Seconds Skin: No rashes, No breakdown Musculoskeletal: No Tenderness to Palpation of Joints or Extremities. Neurological: Cranial nerves II-XII grossly intact, DTR 2+/4 Psych/Mental Status: Dementia. Assessment & Plan Assessment/Plan (1) Bradycardia: PLAN: 1. 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 Pa tient NG tube was removed. Diet has been allowed by the surgeon. Lasix 20 mg IV 1 dose given for leg swelling. Positive fluid balance about 1500 mL. 05/04: Surgical specimen reported invasive adenocarcinoma invading into entering the stomach. 7 out of 7 lymph nodes negative for carcinoma. ID consult appreciated and recommended to continue antibiotics until further culture. Urine culture exhibited no growth. Leukocytosis shows improvement. 2. PUMA with prostate cancer status prostatectomy with chronic with restriction status Ferrari catheter: Dr. Gordillo is aware. Keep the Ferrari catheter. Patient creatinine was normal 0.9 in November 2018. After that, November 2020 creatinine 1.41 and since then it is going up. Currently, downward trends for last 2 days. Total charted urine output 390 mL. 05/04: Patient had about 400 mL urine output. Last night chest x-ray reviewed shows bilateral atelectasis, bilateral opacities more in central with capitalization. Discussed with the tractor trailer mechanic. Does not think patient needs renal replacement therapy/dialysis. Worsening in creatinine. Oliguric PUMA. 3. Bradycardia during perioperative duration, resolved: Patient home medication propanol is held. Twelve-lead EKG on 12/02/2020 shows sinus rhythm with first- degree AV block. QTC 428 ms. Electrolytes sodium 142. K4.5. Bicarb 17. Chloride 116. 4. Diabetes mellitus type II: Last A1c 5.7. On Accu-Cheks. 5. Hypertension: Blood pressure is controlled. 6. Acute DVT of left common femoral vein on 04/22/2021 status post IVC filter: Patient had preop Lovenox and preoperative IVC filter placed. With hemoglobin on lower side 8.8, anticoagulant is being held by surgeon. Patient had IVC filter. 7. Other multiple comorbidities include dementia, chronic normocytic anemia, decreased functional status and moderate protein calorie malnutrition: Living will/advanced directive/end of life care: Patient does not have living will or advanced directive. I talked to the patient's in the room along with the tractor trailer mechanic Dr. Torres. After discussion of benefits/risks procedures involved with full code, DNR CC arrest and DNR CC, the patient's not decided about the above option but wants more time and discussion with her daughter. Apparently patient does not look like medically sound mind and coherent to make decision about end-of-life care/advanced directive/CODE STATUS By default, patient is full code and will continue artificial life support including intubation, tube feed, ventilator and/chest compression, central venous catheter, vasopressor and DC shock if needed. Patient's educated to let us know after discussion with the daughter or the nursing staff. Total time spent in [id number] encounter in discussion of advanced directive 16 minutes. Charges/Coding Visit Charges Inpatient E&M: 13175 Subs Hosp L3 Procedures Hospitalists Procedures: 88950 Advncd Care Plan 30 Min
--- NOTE | 2021-05-04 15:56 | CHAPLAIN ---
Type of Pastoral Visit ___ Initial Visit _x__ Follow-up Visit ___ On-call Visit ___ General Patient Visit ___ Spiritual Assessment ___ Family Conference ___ Bereavement ___ Rapid Response ___ Code Blue ___ Other (describe below) Pastoral Care Referral From ___ Patient _x__ Family ___ Nurse ___ Physician ___ Realtime Captioner ___ Health Care Sanitary Technician ___ Other (describe below) Sacrament/Intervention ___ Active listening ___ Anointing ___ Congregational ___ Bereavement ___ Communion ___ Caitie exploration ___ ___ Life review _x__ Prayer ___ Reconciliation ___ Sacrament of Sick _x__ Supportive presence ___ Wedding ___ Other (describe below) Pastoral Comments patient is awake and acknowledges presence of this hospital nurse and answers questions but does not further engage in conversation; spouse comes into room from hallway and gives her thoughts and concerns; listening support and prayer given
--- NOTE | 2021-05-04 16:00 | PCM.PN.BLA ---
Progress Note Appreciate medical assistance. Assessment & Plan Assessment/Plan (1) Colon cancer: QUALIFIERS: Colon location: transverse Qualified Code(s): C18.4 - Malignant neoplasm of transverse colon PLAN: We will temporarily hold metoprolol to allow for slightly higher blood pressure to encourage renal perfusion. Will assess routinely. Vince English M.D., F.A.C.S.
[2021-05-04] MEDS: Furosemide 20 MG/2 ML VIAL IV (17:19)
[2021-05-04] MEDS: Potassium Chloride Oral Soln 20 MEQ/15 ML UDC 40 MEQ GT (17:20)
[2021-05-04] MEDS: Sodium Bicarbonate 650 MG Tablet GT (17:20)
[2021-05-04] MEDS: 0.9% Normal Saline 1,000 ML 75 ML IV (17:21)
[2021-05-04 17:26] LABS: M R Staph aureus DNA By PCR Negative (Negative)
[2021-05-04 17:27] LABS: Probe Check PASS; Specimen Processing Control PASS
[2021-05-04 17:50] LABS: Bedside Glucose 153 mg/dL (70-110)
--- NOTE | 2021-05-04 18:35 | NURSING ---
Conference call initiated with Dr. Lowe, pt's daughter Marci and pt's to discuss code status.
--- NOTE | 2021-05-04 20:15 | NURSING ---
Addendum entered by Rosey Nagel 05/05/21 21:12: daughters name is Marci Cook Original Note: got verbal consent over the phone from daughter Joyce, with a second rn, it was consent for picc line placement and blood transfusion if he should need one
--- NOTE | 2021-05-04 20:30 | NURSING ---
2026- pt anxious with resp in 30's checked pox only 79% on ra, o2 at 3L applied only came up to mid 80's, increased to 5l NC, 92%, encouraged and will check pt frequently to assure NC is still in place. call light with in reach, bedalarm on,
--- NOTE | 2021-05-04 22:10 | NURSING ---
acces rn nurse is placing picc line, CN at bedside assisting
--- NOTE | 2021-05-04 22:15 | NURSING ---
rn went into room to check on pt after picc nurse was complete, patient access registrar was just clearing out of the room, pt had nc in his hands, he was resistant to have rn to place nc on nose, pushing away with his hands, rn was able to applied pox at the time ws 79% on ra, pt had labored breathing, pt then had change in loc and would not respond verbally but would pull away to painful stimuli some, Dr. Serrano was paged and he will be up to see pt.- orders obtained o2 came up to 95% pt still not responding verbally
--- NOTE | 2021-05-04 22:50 | RAD_ITS ---
STUDY: X-RAY CHEST REASON FOR EXAM: Male, 81 years old. Decreased oxygen saturation TECHNIQUE: PA and lateral views of the chest. COMPARISON: 05/04/2021 ( 24) FINDINGS: Are hypoexpanded. There is diffuse perihilar interstitial prominence most marked on the left. There is no demonstrated pleural abnormality. The heart remains borderline enlarged. Normal mediastinum and annetta. Normal visualized pulmonary arteries. Normal visualized aortic arch and descending thoracic aorta. The thoracic spine is obscured by the mediastinum. Normal visualized ribs, clavicles, and shoulders. Density and is free air beneath the right hemidiaphragm is related to recent bowel surgery. RAD/Chest PA and Lateral IMPRESSION: No major interval change from an examination of approximately 22 hours earlier. Electronically Signed: Huey Silva DO at 23:58 EST Tel [phone], Service support ,
[2021-05-05] VITALS (46 sets, daily range): BP systolic 62–124; BP diastolic 46–83; PULSE 42–75; RESP 11–30; TEMP 35.7–36; O2SAT 88–100; BMI 26.2
[2021-05-05 00:13] LABS: Absolute Lymphocyte Count 0.41 X10^3/uL (0.83-4.51); Absolute Neutrophil Count 8.8 X10^3/uL (2.0-7.7); Basophil# 0.01 X10^3/uL; Basophil% 0.1 % (0-1); Hematocrit 25.1 % (40-54); Hemoglobin 8.3 g/dL (13.0-16.5); Lymphocyte # 0.41 X10^3/ul (0.83-4.51); Lymphocyte % 4.1 % (19-41); Mean Corp Hgb Conc 33.1 g/dL (32-36); Mean Corpuscular Hgb 27.9 pg (27.0-32.0); Mean Corpuscular Volume 84.5 fL (80-94); Mean Platelet Vol. 11.1 fl (6.2-12.0); Monocyte# 0.63 X10^3/uL; Monocyte% 6.4 % (0-10); NRBC Flagged by Analyzer 0.9 % (0-5); Neutrophil # 8.77 X10^3/uL (2.7-7.7); Neutrophil % 88.8 % (47-70); POSITIVE DIFFERENTIAL YES; Platelet Count 123 K/mm3 (150-450); RBC Distribution Width CV 19.3 % (11.6-14.6); RBC Distribution Width SD 58.8 fl (35.1-43.9); Red Blood Count 2.97 M/mm3 (4.6-6.2); White Blood Count 9.9 K/mm3 (4.4-11.0)
[2021-05-05 00:15] LABS: Differential Indicated SCAN CRITERIA MET
[2021-05-05 00:16] LABS: Bedside Glucose 133 mg/dL (70-110)
[2021-05-05 00:53] LABS: Anion Gap 13 (5-15); BUN 68 mg/dL (7-18); BUN/Creat Ratio 20.6 RATIO (10-20); Calcium,Total 8.1 mg/dL (8.5-10.1); Chloride 114 mmol/L (98-107); EST Glomerular Filtration Rate 19 mL/min (>60); Est Glom Filt Rate - Afr Amer 23 mL/min (>60); Estimated Creatinine Clearance 15.84 ml/min; Glucose 198 mg/dL (74-106); Potassium 3.6 mmol/L (3.5-5.1); Sodium Level 142 mmol/L (136-145)
[2021-05-05 02:26] LABS: Differential Comment SCANNED
[2021-05-05] MEDS: 0.9% Normal Saline 1,000 ML 75 ML IV (03:41)
[2021-05-05 05:31] LABS: Absolute Lymphocyte Count 0.45 X10^3/uL (0.83-4.51); Absolute Neutrophil Count 8.9 X10^3/uL (2.0-7.7); Basophil# 0.01 X10^3/uL; Basophil% 0.1 % (0-1); Hematocrit 25.5 % (40-54); Hemoglobin 8.2 g/dL (13.0-16.5); Lymphocyte # 0.45 X10^3/ul (0.83-4.51); Lymphocyte % 4.5 % (19-41); Mean Corp Hgb Conc 32.2 g/dL (32-36); Mean Corpuscular Hgb 27.5 pg (27.0-32.0); Mean Corpuscular Volume 85.6 fL (80-94); Mean Platelet Vol. 10.3 fl (6.2-12.0); Monocyte# 0.57 X10^3/uL; Monocyte% 5.7 % (0-10); Neutrophil # 8.89 X10^3/uL (2.7-7.7); Neutrophil % 88.6 % (47-70); POSITIVE DIFFERENTIAL YES; Platelet Count 123 K/mm3 (150-450); RBC Distribution Width CV 19.4 % (11.6-14.6); RBC Distribution Width SD 60.3 fl (35.1-43.9); Red Blood Count 2.98 M/mm3 (4.6-6.2)
[2021-05-05 05:32] LABS: Differential Indicated SCAN CRITERIA MET
--- NOTE | 2021-05-05 05:52 | PCM.PN.SRG ---
Subjective Subjective Patient found sleeping with his mouth open. Oral mucosa is dry. Lips are starting to crack. Extremities are edematous and very cold. By report he refuses blankets. Objective Data Objective Data Vital Signs: Vital Signs Temp Pulse Resp BP Pulse Ox 96.5 F L 65 28 H 121/74 H 88 05/05/21 05:08 05/05/21 05:08 05/05/21 05:08 05/05/21 05:08 05/05/21 05:08 Oxygen Flow Rate (L/min) 3 Oxygen Delivery Method Nasal Cannula Weight: 177 lb 4.026 oz Body Mass Index (BMI) 26.2 Intake & Output: Intake and Output for Last 24 Hours 05/03/21 05/04/21 05/05/21 23:59 23:59 23:59 Intake Total 1200 / 1200 1990.0 / 1990.0 825 / 825 Output Total 195 / 195 150 / 150 Balance 1200 / 1200 1795.0 / 1795.0 675 / 675 Medical Nutrition Assessment Dietitian: Malnutrition Criteria Met Start: 05/03/21 12:08 Freq: Status: Active Protocol: Document 05/04/21 14:03 RMA (Rec: 05/04/21 14:03 RMA [id number]) Nutrition Malnutrition Evidence of Malnutrition Exists Yes Malnutrition (severe): Chronic Evidenced By Suboptimal Energy Intake ( Severe),Weight Loss (Severe) Intake Problem Inadequate Enteral Nutrition Infusion Etiology related to gradual advancement as tolerance established Signs/Symptoms as evidenced by TF meeting ~25 % estimated energy needs and ~ 40% estimated protein needs Status Active Problem Inadequate Oral Intake Etiology related to reported nausea, decreased appetite 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 Signs/Symptoms as evidenced estimated PO intake meeting <75% of estimated nutritional needs x 3 months, unintentional wt loss Status Active Problem Clinical Problem Chronic Disease or Condition Related Malnutrition Etiology severe malnutrition r/t inadequate energy intake d/t GI dysfunction Signs/Symptoms as evidenced by estimated PO intake meeting <75% of estimated nutritional needs x 3 months, unintentional wt loss of 28#/15% wt loss < 6 months and need for TF support Status Active Problem Recommendation Dietitian Recommendations/Changes 1) Diet as tolerated, will adjust to sodium-restricted/ consistent-carbohydrate/ protein-restricted w/ 1500ml FR---pt is not taking significant PO; suggest regular diet if PO only for comfort and remains insignificant at meals. 2) Will d/c ensure clear TID ( medpass) poor oral intake/pt refusal. 3) Recommend Vital AF 1.2 as tolerated to goal rate of 65mL /hour w/ 40mL H2O flush every 4 hours to provide 1872 calories, 117 g protein, and 1505mL free water/day. Gradually increase by 10mL/ hour every 8-12 hours as pt tolerates until goal rate is achieved. As ordered, enteral nutrition would meet 100% of estimated nutritional needs. Will decrease estimated protein needs given renal status and consider different product as TF advanced and tolerance established if renal status remains compromised. 4) Daily weights. 5) Will adjust EN recommendations if pt able to consume some nutrition via PO diet; if pt going to be completely NPO would recommend transition to bolus enteral nutrition feedings and will adjust recommendations as indicated. Lab / Micro Data Result Diagrams: 05/05/21 05:05 05/05/21 00:05 Labs: Laboratory Results - last 24 hr 05/04/21 07:54: WBC 10.8, RBC 3.48 L, Hgb 9.5 L, Hct 29.3 L, MCV 84.2, MCH 27.3, MCHC 32.4, RDW Std Deviation 59.0 H, RDW Coeff of Armani 19.2 H, Plt Count 153, MPV 10.6, Immature Gran % (Auto) 0.700, Neut % (Auto) 84.8 H, Lymph % (Auto) 7.3 L, [place] % (Auto) 7.1, Eos % (Auto) 0.0, Baso % (Auto) 0.1, Absolute Neuts (auto) 9.1 H, Absolute Lymphs (auto) 0.79 L, Nucleated RBC % 1.1 05/04/21 07:54: Sodium 141, Potassium 3.4 L, Chloride 114 H, Carbon Dioxide 14.0 L, Anion Gap 13, BUN 62 H, Creatinine 3.16 H, Estim Creat Clear Calc 16.54, Est GFR (MDRD) Af Amer 24 L, Est GFR (MDRD) Non-Af 20 L, BUN/Creatinine Ratio 19.6, Glucose 166 H, Calcium 7.9 L 05/04/21 07:54: B-Natriuretic Peptide 1937.8 H 05/04/21 08:50: Ur Random Sodium < 5, Urine Creatinine 225.00 05/04/21 10:28: Procalcitonin 4.87 H 05/04/21 10:50: MRSA (PCR) Negative 05/04/21 11:15: COVID-19 ([facility]) Not Detected 05/04/21 13:14: POC Glucose 140 H 05/04/21 17:13: POC Glucose 153 H 05/04/21 23:40: Ammonia 18.0 05/04/21 23:55: POC Glucose 133 H 05/05/21 00:05: WBC 9.9, RBC 2.97 L, Hgb 8.3 L, Hct 25.1 L, MCV 84.5, MCH 27.9, MCHC 33.1, RDW Std Deviation 58.8 H, RDW Coeff of Armani 19.3 H, Plt Count 123 L, MPV 11.1, Immature Gran % (Auto) 0.600, Neut % (Auto) 88.8 H, Lymph % (Auto) 4.1 L, [place] % (Auto) 6.4, Eos % (Auto) 0.0, Baso % (Auto) 0.1, Absolute Neuts (auto) 8.8 H, Absolute Lymphs (auto) 0.41 L, Nucleated RBC % 0.9, Differential Comment SCANNED 05/05/21 00:05: Sodium 142, Potassium 3.6, Chloride 114 H, Carbon Dioxide 15.0 L, Anion Gap 13, BUN 68 H, Creatinine 3.30 H, Estim Creat Clear Calc 15.84, Est GFR (MDRD) Af Amer 23 L, Est GFR (MDRD) Non-Af 19 L, BUN/Creatinine Ratio 20.6 H, Glucose 198 H, Calcium 8.1 L 05/05/21 05:05: WBC 10.0, RBC 2.98 L, Hgb 8.2 L, Hct 25.5 L, MCV 85.6, MCH 27.5, MCHC 32.2, RDW Std Deviation 60.3 H, RDW Coeff of Armani 19.4 H, Plt Count 123 L, MPV 10.3, Immature Gran % (Auto) 1.100 H, Neut % (Auto) 88.6 H, Lymph % (Auto) 4.5 L, [place] % (Auto) 5.7, Eos % (Auto) 0.0, Baso % (Auto) 0.1, Absolute Neuts (auto) 8.9 H, Absolute Lymphs (auto) 0.45 L, Nucleated RBC % 1.0 Micro: Microbiology 04/30/21 06:50 Urine Catheter - Ferrari Urine Culture - Final Culture exhibits no growth. Radiography Diagnostic Testing: Radiology Impression Chest X-Ray 05/04/21 22:50 IMPRESSION: No major interval change from an examination of approximately 22 hours earlier. Electronically Signed: Huey Silva, DO at 23:58 EST Tel [phone], Service support , Physical Exam Resp Resp Narrative: Anterior chest is clear, patient instead wait I cannot hear to the bases bilaterally. Tachypnea noted GI GI Narrative: Abdomen is absolutely soft decompressed nontender incision clean and dry Extremity Extremity Narrative: Cool to touch and edematous Assessment & Plan Assessment/Plan (1) Acute renal failure: QUALIFIERS: Acute renal failure type: unspecified Qualified Code(s): N17.9 - Acute kidney failure, unspecified (2) Oliguria: PLAN: As noted per Dr. Lowe the abdominal surgery quite successful with complete resection of the tumor with his invasion of the stomach and clear margins and negative lymph nodes. This would portend a short-term good prognosis. However patient is hypothermic. Confused. Tachypneic. Oliguric despite IV Lasix drip and IV fluid. White blood cell count is normal. Hemoglobin is stable. BMP is pending. Chest x-ray was obtained last night because of oxygen requirement. It is unchanged from 22 hours previously. There is left perihilar greater than right perihilar congestion. I continue to suspect that this is not pneumonia but rather fluid overload. The patient's concurs with placement of a tunneled hemodialysis catheter if indicated. Dr. Torres would like to pursue a renal vein duplex exam looking for possible renal vein thrombosis as an etiology to the patient's acute renal failure. I will defer to hospitalist service as to whether an echocardiogram should be pursued. At this point I am anticipating proceeding on with placement of tunneled dialysis catheters. Dr. Poornima Torres's anticipates rounds this morning. If required hopefully the patient can get treatment today. Unfortunately the patient is hypothermic at the moment in large part is that he refuses blankets. By report he becomes agitated and throws the blankets off of him. We will increase the room temperature to assist The patient had a successful right upper semi-PICC line placed last night. My appreciation Subsequent to the plan dialysis catheter placement will resume tube feedings as per customer support coordinator recommendations. The patient appears to have complete return of GI function. Vince English M.D., F.A.C.S.
[2021-05-05 05:56] LABS: Anion Gap 13 (5-15); BUN 67 mg/dL (7-18); BUN/Creat Ratio 21.8 RATIO (10-20); Calcium,Total 7.3 mg/dL (8.5-10.1); Chloride 116 mmol/L (98-107); Creatinine, Serum 3.07 mg/dL (0.70-1.30); EST Glomerular Filtration Rate 21 mL/min (>60); Est Glom Filt Rate - Afr Amer 25 mL/min (>60); Estimated Creatinine Clearance 17.03 ml/min; Glucose 187 mg/dL (74-106); Potassium 3.3 mmol/L (3.5-5.1); Sodium Level 144 mmol/L (136-145)
[2021-05-05 06:44] LABS: Differential Comment SCANNED
--- NOTE | 2021-05-05 08:24 | PN.HOSP_ITS ---
Subjective Subjective Seen and examined. Overnight issues discussed with the nursing staff. Last evening I had a conference call with patient's daughter who is Dr. Marci Harley, his , patient's nurse and charge nurse and we came to conclusion with a DNR CC with intubation. They agreed for temporary dialysis. Patient has a right arm dual-lumen PICC line. Urine output has been dismal about 195 mL on Lasix drip, 2 mL/min started yesterday along with IV albumin. Patient opens eyes but confused, obtunded, lethargic. No meaningful communication possible. Respiratory rate 28/min, pulse ox 88% on 3 L of oxygen. Heart rate 57 to 60s, sinus bradycardia on cardiac nurse specialist. Afebrile I decided to get cotton cleaner involved further management. ABG stat ordered. Objective Data Objective Data Vital Signs: Vital Signs Temp Pulse Resp BP Pulse Ox 96.5 F L 70 28 H 121/74 H 88 05/05/21 05:08 05/05/21 07:38 05/05/21 05:08 05/05/21 05:08 05/05/21 05:08 Oxygen Flow Rate (L/min) 3 Oxygen Delivery Method Nasal Cannula Weight: 181 lb 7.047 oz Body Mass Index (BMI) 26.2 Intake & Output: Intake and Output for Last 24 Hours 05/03/21 05/04/21 05/05/21 23:59 23:59 23:59 Intake Total 1200 / 1200 1989.0 / 1989.0 992.5 / 992.5 Output Total 195 / 195 150 / 150 Balance 1200 / 1200 1795.0 / 1795.0 842.5 / 842.5 Medical Nutrition Assessment Dietitian: Malnutrition Criteria Met Start: 05/03/21 12:08 Freq: Status: Active Protocol: Document 05/04/21 14:03 RMA (Rec: 05/04/21 14:03 RMA [id number]) Nutrition Malnutrition Evidence of Malnutrition Exists Yes Malnutrition (severe): Chronic Evidenced By Suboptimal Energy Intake ( Severe),Weight Loss (Severe) Intake Problem Inadequate Enteral Nutrition Infusion Etiology related to gradual advancement as tolerance established Signs/Symptoms as evidenced by TF meeting ~25 % estimated energy needs and ~ 40% estimated protein needs Status Active Problem Inadequate Oral Intake Etiology related to reported nausea, 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 Signs/Symptoms as evidenced estimated PO intake meeting <75% of estimated nutritional needs x 3 months, unintentional wt loss Status Active Problem Clinical Problem Chronic Disease or Condition Related Malnutrition Etiology severe malnutrition r/t inadequate energy intake d/t GI dysfunction Signs/Symptoms as evidenced by estimated PO intake meeting <75% of estimated nutritional needs x 3 months, unintentional wt loss of 28#/15% wt loss < 6 months and need for TF support Status Active Problem Recommendation Dietitian Recommendations/Changes 1) Diet as tolerated, will adjust to sodium-restricted/ consistent-carbohydrate/ protein-restricted w/ 1500ml FR---pt is not taking significant PO; suggest regular diet if PO only for comfort and remains insignificant at meals. 2) Will d/c ensure clear TID ( medpass) poor oral intake/pt refusal. 3) Recommend Vital AF 1.2 as tolerated to goal rate of 65mL /hour w/ 40mL H2O flush every 4 hours to provide 1872 calories, 117 g protein, and 1505mL free water/day. Gradually increase by 10mL/ hour every 8-12 hours as pt tolerates until goal rate is achieved. As ordered, enteral nutrition would meet 100% of estimated nutritional needs. Will decrease estimated protein needs given renal status and consider different product as TF advanced and tolerance established if renal status remains compromised. 4) Daily weights. 5) Will adjust EN recommendations if pt able to consume some nutrition via PO diet; if pt going to be completely NPO would recommend transition to bolus enteral nutrition feedings and will adjust recommendations as indicated. Lab / Micro Data Result Diagrams: 05/05/21 05:05 05/05/21 05:05 Labs: Laboratory Results - last 24 hr 05/04/21 07:54: Sodium 141, Potassium 3.4 L, Chloride 114 H, Carbon Dioxide 14.0 L, Anion Gap 13, BUN 62 H, Creatinine 3.16 H, Estim Creat Clear Calc 16.54, Est GFR (MDRD) Af Amer 24 L, Est GFR (MDRD) Non-Af 20 L, BUN/Creatinine Ratio 19.6, Glucose 166 H, Calcium 7.9 L 05/04/21 07:54: B-Natriuretic Peptide 1937.8 H 05/04/21 08:50: Ur Random Sodium < 5, Urine Creatinine 225.00 05/04/21 10:28: Procalcitonin 4.87 H 05/04/21 10:50: MRSA (PCR) Negative 05/04/21 11:15: COVID-19 ([facility]) Not Detected 05/04/21 13:14: POC Glucose 140 H 05/04/21 17:13: POC Glucose 153 H 05/04/21 23:40: Ammonia 18.0 05/04/21 23:55: POC Glucose 133 H 05/05/21 00:05: WBC 9.9, RBC 2.97 L, Hgb 8.3 L, Hct 25.1 L, MCV 84.5, MCH 27.9, MCHC 33.1, RDW Std Deviation 58.8 H, RDW Coeff of Armani 19.3 H, Plt Count 123 L, MPV 11.1, Immature Gran % (Auto) 0.600, Neut % (Auto) 88.8 H, Lymph % (Auto) 4.1 L, Butts % (Auto) 6.4, Eos % (Auto) 0.0, Baso % (Auto) 0.1, Absolute Neuts (auto) 8.8 H, Absolute Lymphs (auto) 0.41 L, Nucleated RBC % 0.9, Differential Comment SCANNED 05/05/21 00:05: Sodium 142, Potassium 3.6, Chloride 114 H, Carbon Dioxide 15.0 L , Anion Gap 13, BUN 68 H, Creatinine 3.30 H, Estim Creat Clear Calc 15.84, Est GFR (MDRD) Af Amer 23 L, Est GFR (MDRD) Non-Af 19 L, BUN/Creatinine Ratio 20.6 H , Glucose 198 H, Calcium 8.1 L 05/05/21 05:05: WBC 10.0, RBC 2.98 L, Hgb 8.2 L, Hct 25.5 L, MCV 85.6, MCH 27.5, MCHC 32.2, RDW Std Deviation 60.3 H, RDW Coeff of Armani 19.4 H, Plt Count 123 L, MPV 10.3, Immature Gran % (Auto) 1.100 H, Neut % (Auto) 88.6 H, Lymph % (Auto) 4.5 L, Butts % (Auto) 5.7, Eos % (Auto) 0.0, Baso % (Auto) 0.1, Absolute Neuts (auto) 8.9 H, Absolute Lymphs (auto) 0.45 L, Nucleated RBC % 1.0, Differential Comment SCANNED 05/05/21 05:05: Sodium 144, Potassium 3.3 L, Chloride 116 H, Carbon Dioxide 15.0 L, Anion Gap 13, BUN 67 H, Creatinine 3.07 H, Estim Creat Clear Calc 17.03, Est GFR (MDRD) Af Amer 25 L, Est GFR (MDRD) Non-Af 21 L, BUN/Creatinine Ratio 21.8 H , Glucose 187 H, Calcium 7.3 L Micro: Microbiology 04/30/21 06:50 Urine Catheter - Ferrari Urine Culture - Final Culture exhibits no growth. Radiography Diagnostic Testing: Radiology Impression Chest X-Ray 05/04/21 22:50 IMPRESSION: No major interval change from an examination of approximately 22 hours earlier. Electronically Signed: Huey Silva DO at 23:58 EST Tel [phone], Service support , Physical Exam Narrative General: Obtunded, deep labored mouth breathing. Lethargic, obtunded HEENT: Eyes open. Atraumatic, PERRLA, EOMI, Normocephalic Oral: Oral mucosa dry. Neck: Supple, No JVD, Negative Carotid Bruits Lungs: Air entry diminished in bilateral lung bases. Bibasilar occasional crepitations. Cardiovascular: Sinus bradycardia, Normal S1, Normal S2, No murmurs Abdomen: Abdominal dressing dry. PEG tube. Surgical bandage applied on it. : Status post prostatectomy. Ferrari catheter 10 Romansh. Dark urine, oliguric. No suprapubic tenderness. Extremities: Right BKA. Left lower extremity below-knee pitting edema, Capillary Refill Less than 3 Seconds Skin: No rashes, No breakdown Musculoskeletal: No Tenderness to Palpation of Joints or Extremities. Neurological: Cranial nerves II-XII grossly intact, DTR 2+/4 Psych/Mental Status: Flat affect, Assessment & Plan Assessment/Plan (1) Bradycardia: PLAN: 1. 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 Patient NG tube was removed. Diet has been allowed by the surgeon. Lasix 20 mg IV 1 dose given for leg swelling. Positive fluid balance about 1500 mL. 11/23: Surgical specimen reported moderately differentiated, high-grade dysplasia invasive adenocarcinoma invading into the adherent stomach. 7 out of 7 lymph nodes negative for carcinoma. Pathological staging pT4b, N0, Mtx. ID consult appreciated and recommended to continue antibiotics until further culture. Urine culture exhibited no growth. Leukocytosis shows improvement. Procalcitonin elevated 4.87. 2. PUMA with prostate cancer status prostatectomy with chronic with restriction status Ferrari catheter: Dr. Gordillo is aware. Keep the Ferrari catheter. Patient creatinine was normal 0.9 in November 2018. After that, November 2020 creatinine 1.41 and since then it is going up. Currently, downward trends for last 2 days. Total charted urine output 390 mL. 05/04: Patient had about 400 mL urine output. Last night chest x-ray reviewed shows bilateral atelectasis, bilateral opacities more in central with capitalization. Discussed with the manager of product. Does not think patient needs renal replacement therapy/dialysis. Worsening in creatinine. Oliguric PUMA. Acute hypoxic respiratory failure with mixed metabolic acidosis with respiratory acidosis associated with PUMA: 05/05: Urine output low. Creatinine 3.07. BUN 67. On Lasix drip. Bicarb 15, chloride 116. ABG 7.1/37/88 on nonrebreather. Previous was a venous sample of pH 7.19/35 PCO2 overall it suggestive of normal anion gap gap metabolic acidosis with mild respiratory acidosis. Patient is started on bicarb drip in consultation with manager of product. Patient is intubated in ICU. I discussed with patient's daughter, Dr. Marci Harley was driving in from [place]. Agreed for temporary dialysis catheter and dialysis as per tolerated by hemodynamics 3. Bradycardia during perioperative duration, resolved: Patient home medication propanol is held. Twelve-lead EKG on 12/02/2020 shows sinus rhythm with first- degree AV block. QTC 428 ms. Electrolytes sodium 142. K4.5. Bicarb 17. Chloride 116. 05/05 twelve-lead normal sinus rhythm, low voltage QRS, nonspecific changes. QTc 486 ms. As compared to previous EKG, QRS complexes are of low voltage probably due to metabolic acidosis. 4. Diabetes mellitus type II: Last A1c 5.7. On Accu-Cheks. 5. Hypertension: Blood pressure in 90s systolic 6. Acute DVT of left common femoral vein on 04/22/2021 status post IVC filter: Patient had preop Lovenox and preoperative IVC filter placed. With hemoglobin on lower side 8.8, anticoagulant is being held by surgeon. Patient had IVC filter. 7. Other multiple comorbidities include dementia, chronic normocytic anemia, decreased functional status and moderate protein calorie malnutrition: Living will/advanced directive/end of life care: Patient does not have living will or advanced directive. I talked to the patient's and her daughter Dr. Marci Harley along with nursing staff on conference call after afternoon talk with manager of product and patient's . Patient's daughter and in agreement with DNR CCA with intubation. They agreed for hemodialysis. They do not want DC shock but agreeable for short-term vasopressor, tube feeding. No CPR/chest compression. CODE STATUS DNR CCA with intubation. Patient's daughter and are aware of poor prognosis. Charges/Coding Visit Charges Inpatient E&M: 31567 [facility] Hosp L3
--- NOTE | 2021-05-05 08:35 | EKG12_ITS ---
Test Reason : NOT RESPONSIVE Blood Pressure : / mmHG Vent. Rate : 066 BPM Atrial Rate : 066 BPM P-R Int : 208 ms QRS Dur : 072 ms QT Int : 388 ms P-R-T Axes : 078 -12 229 degrees QTc Int : 406 ms Normal sinus rhythm Low voltage QRS Nonspecific ST and T wave abnormality Abnormal ECG Confirmed by HUNG CALDWELL, REAL ([id number]), purchase request editor JAMIR WILKINS ([id number]) on 05/07/2021 7:24:28 AM Referred By: JOSE Confirmed By:REAL PERSAUD MD
[2021-05-05 08:51] LABS: Magnesium 1.9 mg/dL (1.6-2.6)
--- NOTE | 2021-05-05 09:30 | CASEMGMT ---
Plan is for dialysis. [facility] canceled the TCU bed for patient this am due to dialysis. [facility] will also talk with patient's about picking an alternate long term facility. Patient has now been moved to ICU. Carla PRATHER
[2021-05-05 10:01] LABS: Base Excess -16 mmol/L (-2 to +2); Bicarbonate 12.6 mmol/L (22-26); Blood Gas Specimen Type ART; O2 Delivery Device NRB; PO2 69 mmHG (75-100); SITE R Fem; SO2 88 % (95-99); Total Carbon Dioxide 14 mmol/L; pCO2 36.8 mmHg (35-45); pH 7.14 (7.35-7.45)
--- NOTE | 2021-05-05 10:10 | CASEMGMT ---
Addendum entered by Mireya Bernardo 05/05/21 10:13: Daughter Sharifa Flores's number is [phone]. NGHIA Lind Original Note: Pt's daughter Sharifa here, SW spoke w/her in the waiting room. SW spoke w/RN, pt just got up here, will be some time before daughter can come see pt. SW explained this to the daughter, daughter states understanding. She is going to leave for a bit and then come back w/pt's . She asked if they can both come in to see pt later, as pt's gets very anxious and doesn't always understand everything. Daughter also states she understands that pt may or may not survive this. SW checked w/RN, she is okay with this, SW let daughter know. Daughter asked about her other sisters, pt's daughters, and pt's grandsons coming in to visit if possible, SW explained this will be up to the ICU staff. SW offered support to daughter, SW gave her the number to ICU to call before coming back, so she can make sure is okay to come in to visit. SW remains available for support to daughter and family. NGHIA Lind
[2021-05-05] MEDS: Etomidate 20 MG/10 ML Vial 10 MG IV (10:13)
[2021-05-05] MEDS: Propofol 10MG/Ml 1,000 MG/100 ML Bottle 4.9 MG CONT INF (10:15)
--- NOTE | 2021-05-05 10:20 | PCM.PN.REN ---
Subjective Subjective less responsive, acidotic with pH 7.14. Transferred to ICU. Creatinine 3.0 with stable potassium. IV access lost overnight. Remains oliguric with lasix drip. Will initiate dialysis today after temp catheter placement. Spoke with hospitalist and Dr. English. Spoke with pt dtr Marci Harley on phone who is driving in to [facility] from [place]. She is aware of decline in condition and risks involved with hemodialysis. She is in agreement for trial hemodialysis if tolerated. Objective Data Objective Data Vital Signs: Vital Signs Temp Pulse Resp BP Pulse Ox 96.8 F L 64 30 H 109/70 98 05/05/21 09:15 05/05/21 09:15 05/05/21 09:15 05/05/21 09:15 05/05/21 09:15 Oxygen Flow Rate (L/min) 15 Oxygen Delivery Method Non-Rebreather @ 15L/min Weight: 82.3 kg Body Mass Index (BMI) 26.2 Intake & Output: Intake and Output for Last 24 Hours 05/03/21 05/04/21 05/05/21 23:59 23:59 23:59 Intake Total 1200 / 1200 1990.0 / 1989.0 992.5 / 992.5 Output Total 195 / 195 150 / 150 Balance 1200 / 1200 1795.0 / 1795.0 842.5 / 842.5 Medical Nutrition Assessment Dietitian: Malnutrition Criteria Met Start: 05/03/21 12:08 Freq: Status: Active Protocol: Document 05/04/21 14:03 RMA (Rec: 05/04/21 14:03 RMA [id number]) Nutrition Malnutrition Evidence of Malnutrition Exists Yes Malnutrition (severe): Chronic Evidenced By Suboptimal Energy Intake ( Severe),Weight Loss (Severe) Intake Problem Inadequate Enteral Nutrition Infusion Etiology related to gradual advancement as tolerance established Signs/Symptoms as evidenced by TF meeting ~25 % estimated energy needs and ~ 40% estimated protein needs Status Active Problem Inadequate Oral Intake Etiology related to reported nausea, 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 as evidenced estimated PO intake meeting <75% of estimated nutritional needs x 3 months, unintentional wt loss Status Active Problem Clinical Problem Chronic Disease or Condition Related Malnutrition Etiology severe malnutrition r/t inadequate energy intake d/t GI dysfunction Signs/Symptoms as evidenced by estimated PO intake meeting <75% of estimated nutritional needs x 3 months, unintentional wt loss of 28#/15% wt loss < 6 months and need for TF support Status Active Problem Recommendation Dietitian Recommendations/Changes 1) Diet as tolerated, will adjust to sodium-restricted/ consistent-carbohydrate/ protein-restricted w/ 1500ml FR---pt is not taking significant PO; suggest regular diet if PO only for comfort and remains insignificant at meals. 2) Will d/c ensure clear TID ( medpass) poor oral intake/pt refusal. 3) Recommend Vital AF 1.2 as tolerated to goal rate of 65mL /hour w/ 40mL H2O flush every 4 hours to provide 1872 calories, 117 g protein, and 1505mL free water/day. Gradually increase by 10mL/ hour every 8-12 hours as pt tolerates until goal rate is achieved. As ordered, enteral nutrition would meet 100% of estimated nutritional needs. Will decrease estimated protein needs given renal status and consider different product as TF advanced and tolerance established if renal status remains compromised. 4) Daily weights. 5) Will adjust EN recommendations if pt able to consume some nutrition via PO diet; if pt going to be completely NPO would recommend transition to bolus enteral nutrition feedings and will adjust recommendations as indicated. Lab / Micro Data Result Diagrams: 05/05/21 05:05 05/05/21 05:05 Labs: Laboratory Results - last 24 hr 05/04/21 07:54: B-Natriuretic Peptide 1937.8 H 05/04/21 10:28: Procalcitonin 4.87 H 05/04/21 10:50: MRSA (PCR) Negative 05/04/21 11:15: COVID-19 ([facility]) Not Detected 05/04/21 13:14: POC Glucose 140 H 05/04/21 17:13: POC Glucose 153 H 05/04/21 23:40: Ammonia 18.0 05/04/21 23:55: POC Glucose 133 H 05/05/21 00:05: WBC 9.9, RBC 2.97 L, Hgb 8.3 L, Hct 25.1 L, MCV 84.5, MCH 27.9, MCHC 33.1, RDW Std Deviation 58.8 H, RDW Coeff of Armani 19.3 H, Plt Count 123 L, MPV 11.1, Immature Gran % (Auto) 0.600, Neut % (Auto) 88.8 H, Lymph % (Auto) 4.1 L, Surry % (Auto) 6.4, Eos % (Auto) 0.0, Baso % (Auto) 0.1, Absolute Neuts (auto) 8.8 H, Absolute Lymphs (auto) 0.41 L, Nucleated RBC % 0.9, Differential Comment SCANNED 05/05/21 00:05: Sodium 142, Potassium 3.6, Chloride 114 H, Carbon Dioxide 15.0 L, Anion Gap 13, BUN 68 H, Creatinine 3.30 H, Estim Creat Clear Calc 15.84, Est GFR (MDRD) Af Amer 23 L, Est GFR (MDRD) Non-Af 19 L, BUN/Creatinine Ratio 20.6 H, Glucose 198 H, Calcium 8.1 L 05/05/21 05:05: WBC 10.0, RBC 2.98 L, Hgb 8.2 L, Hct 25.5 L, MCV 85.6, MCH 27.5, MCHC 32.2, RDW Std Deviation 60.3 H, RDW Coeff of Armani 19.4 H, Plt Count 123 L, MPV 10.3, Immature Gran % (Auto) 1.100 H, Neut % (Auto) 88.6 H, Lymph % (Auto) 4.5 L, Surry % (Auto) 5.7, Eos % (Auto) 0.0, Baso % (Auto) 0.1, Absolute Neuts (auto) 8.9 H, Absolute Lymphs (auto) 0.45 L, Nucleated RBC % 1.0, Differential Comment SCANNED 05/05/21 05:05: Sodium 144, Potassium 3.3 L, Chloride 116 H, Carbon Dioxide 15.0 L, Anion Gap 13, BUN 67 H, Creatinine 3.07 H, Estim Creat Clear Calc 17.03, Est GFR (MDRD) Af Amer 25 L, Est GFR (MDRD) Non-Af 21 L, BUN/Creatinine Ratio 21.8 H, Glucose 187 H, Calcium 7.3 L 05/05/21 05:05: Uric Acid 9.0 H, Phosphorus 5.0 H, Magnesium 1.9 Micro: Microbiology 04/30/21 06:50 Urine Catheter - Ferrari Urine Culture - Final Culture exhibits no growth. ABG Data ABG results: ABG 05/05/21 09:51 Specimen Type ART Sample Site R Fem pH 7.14 L* Bicarbonate Actual 12.6 L Total CO2 14 Base Excess -16 L O2 Saturation 88 L ABG pCO2 36.8 ABG pO2 69 L Brady Test N/A O2 Delivery Device NRB Crit Call To/Read Back Yes Blood Gas Notified Whom Abdiel Radiography Diagnostic Testing: Radiology Impression Chest X-Ray 05/04/21 22:50 IMPRESSION: No major interval change from an examination of approximately 22 hours earlier. Electronically Signed: Huey Silva, at 23:58 EST Tel [phone], Service support , Physical Exam Const Constitutional Narrative: slow to respond, lethargic Resp Resp Narrative: decreased breath sounds on left Cardio regular rate and no rub GI non-tender and non-distended GI Narrative: PEG Auscultation: normoactive bowel sounds Palpation: soft Bladder / Kidney Exam: catheter in place urethral (dark berna urine, oliguric) Extremity Extremity Narrative: edema with rt BKA Neuro Sensorium / Orientation: lethargic Assessment & Plan Assessment/Plan (1) Acute renal failure: QUALIFIERS: Acute renal failure type: unspecified Qualified Code(s): N17.9 - Acute kidney failure, unspecified PLAN: oligoanuric PUMA despite lasix drip, iv albumin, iv fluids. FeNa <1. Initiate dialysis today with temp catheter if tolerated. Discussed with pt dtr. (2) Metabolic acidosis: PLAN: bicarb drip initiated. correct with dialysis (3) Encephalopathy acute: PLAN: transfer to icu (4) diabetes mellitus type II: PLAN: stable (5) hypertension: PLAN: hypotensive. Hold all BP meds (6) Acute deep venous thrombosis: PLAN: LLE s/p IVC filter 04/26/21 (7) Colon cancer: QUALIFIERS: Colon location: transverse Qualified Code(s): C18.4 - Malignant neoplasm of transverse colon PLAN: s/p rt hemicolectomy with PEG (8) Anemia: QUALIFIERS: Anemia type: unspecified type Qualified Code(s): D64.9 - Anemia, unspecified PLAN: hgb 9.3g (9) History of prostate cancer: (10) UTI (urinary tract infection): PLAN: urine c/s no growth. continue with iv antibx. Leukocytosis improving
--- NOTE | 2021-05-05 10:21 | NURSING ---
1010- DR. Meadows at bedside preparing to intubate 1013- Etomidate 10mg IV x1 given 1015- Intubated w/ #8 OET, 24 at lip, + Color change and bilat breath sounds. Tube secured. Radiology called for stat CXR
--- NOTE | 2021-05-05 10:25 | RAD_ITS ---
STUDY: X-RAY CHEST REASON FOR EXAM: Male, 81 years old. Fever, cough, respiratory failure TECHNIQUE: Single AP portable view of the chest. COMPARISON: Yesterday FINDINGS: EKG leads overlie the chest. Stable appearance of a right-sided PICC line. Since the previous study, an ET tube is in place, tip is 4 cm above the chano. Slight decreased amount of pneumoperitoneum compared to the previous study. Patient is post surgical. Lung james show overall improvement compared to the previous study with decreased interstitial and airspace opacifications of both lung james, stable left pleural effusion. Normal size heart. Normal mediastinum and annetta. Normal visualized pulmonary arteries. Normal visualized aortic arch and descending thoracic aorta. Normal visualized thoracic spine. Normal visualized ribs, clavicles, and shoulders. There is no demonstrated abnormality of the visualized soft tissue structures of the upper abdomen. RAD/Chest 1 View (Portable) IMPRESSION: Lung james show significant overall improvement compared to the previous study with near complete resolution of the interstitial and airspace opacifications in both lung james stable left pleural effusion. Support lines and tubes as described, no complications Slight decreased amount of pneumoperitoneum compared to the previous study, patient is postop. Electronically Signed: Dennys Alcazar MD at 10:44 EST , Service support ,
--- NOTE | 2021-05-05 10:31 | EX.PCM.CONCC ---
Assessment & Plan Assessment/Plan (1) Encephalopathy acute: (2) Respiratory failure, acute: (3) Colon cancer: QUALIFIERS: Colon location: transverse Qualified Code(s): C18.4 - Malignant neoplasm of transverse colon (4) Acute renal failure: QUALIFIERS: Acute renal failure type: unspecified Qualified Code(s): N17.9 - Acute kidney failure, unspecified PLAN: RECOMMENDATIONS: 1. Urgent hemodialysis 2. Okay to run even if necessary from blood pressure standpoint 3. Okay to use pressors to facilitate hemodialysis 4. Wean oxygen as tolerated 5. Spontaneous breathing and awakening trial per protocol 6. Confirmed DNR Comfort Care arrest with intubation IMPRESSIONS: 1. Acute combined respiratory failure secondary to respiratory muscle fatigue Clinical suspicion for respiratory failure secondary to respiratory muscle fatigue. Patient had worsening CO2 over the course of 2 hours with paradoxical muscle movement. That being said, intubation went smoothly and should provide respiratory muscle recovery. Patient appears to be oxygenating relatively well on the ventilator. Continue to wean oxygen as tolerated. Spontaneous breathing and awakening trials per protocol. 2. Acute on chronic kidney injury CKD stage III/IX anion gap metabolic acidosis/history of bradycardia Patient with significant acidosis and volume overload necessitating hemodialysis. Potassium and BUN are acceptable at this time. Will attempt hemodialysis per nephrology. Anticipate an element of hypotension with dialysis. Okay to run even from my perspective as oxygenation is not a big issue at this time. Patient is not hemodynamically stable enough for a tunneled line. This can be done in the future if situation improves. 3. Diabetes mellitus type 2/hypertension/acute DVT of left femoral vein/dementia/malnutrition/advanced age Complicates care, management, recovery and prognosis. Hold antihypertensive medications given metabolic acidosis and hypotension. Family is aware of the gravity of the situation and relatively poor prognosis. They are willing to try hemodialysis to see if this will help the overall condition. Patient has an IVC filter in place. Patient does have a recent diagnosis of a colon cancer. TIME: 45 minutes of critical care time spent addressing patient's acute respiratory failure, acute kidney injury, bradycardia, hypotension, review of all data and collaboration with care team (9:30 AM to 12 PM) HPI Consult Data Date of Consult: 05/05/21 HPI Narrative HPI Narrative: VIKRAM PORTER is a 81 M, with past medical history listed below, who presented to [facility] on 04/29/2021 following a colonoscopy just previous that was notable for a colonic mass. Patient had a right colectomy that reportedly went well. However, postoperatively, patient started to develop renal complications. Patient has received both fluids and Lasix therapy with no improvement. This morning, I was called to evaluate the patient secondary to agonal breathing. At approximately 8:30 AM, I was informed about this patient. An ABG was requested, but a VBG was all that can be obtained. This showed significant acidosis, so I went to see the patient. This was at approximately 9:30 in the morning. On my arrival, patient would open his eyes to loud voices, but not interacting or following commands. Patient's daughter was at the bedside and on the phone with her sister there is a family practice physician in [place]. Concerns for respiratory status were reviewed in detail. They reiterated that the patient could be intubated if necessary. They understood that dialysis was required and wanted to take 1 last try to see if things can improve. Patient was then transported to the intensive care unit. ABG showed marginal oxygenation despite nonrebreather and worsening CO2. It was determined that the patient was going into respiratory failure secondary respiratory muscle fatigue. Given discussion with the family, patient was intubated without complication. Discussed at length with Dr. English who placed dialysis catheter. Per his discussion with the family, attempts at hemodialysis would be tried, but no CPR would be given. [facility] Medical History (Updated 05/05/21 @ 10:[address] Kolton Meadows MD) Cancer Colonic mass Colonic mass Colonic mass Dementia Diabetes DVT (deep venous thrombosis) Essential tremor Gastric reflux History of renal disease Hypertension Kidney disease Non-smoker Rash Severe malnutrition Sleep apnea Subdural hematoma Walker as ambulation aid Home Medications coenzyme Q10 [Co Q-10] 100 mg PO DAILY 03/13/14 [History Last Taken 04/26/21] vitamin B complex 1 cap PO DAILY 08/17/16 [History Last Taken 04/26/21] Advanced Memory Formula 1 tablet PO/SL DAILY 11/27/18 [History Last Taken 04/26/21] propranolol 30 mg PO TID 11/27/18 [History Last Taken 04/28/21] ascorbic acid (vitamin C) [Vitamin C] 500 mg PO DAILY 04/28/21 [History Last Taken Unknown] cholecalciferol (vitamin D3) [Vitamin D3] 125 mcg PO DAILY 04/28/21 [History Last Taken Unknown] enoxaparin [Lovenox] 80 mg SUBCUT Q12H 04/28/21 [History Last Taken 04/28/21] magnesium 250 mg PO DAILY 04/28/21 [History Last Taken Unknown] Allergy/AdvReac Type Severity Reaction Status Date / Time No Known Allergies Allergy Verified 04/26/21 10:28 Family History Mother Hypertension CAD (coronary artery disease) Surgical History H/O esophagogastroduodenoscopy History of superior vena cava filter placement S/P colonoscopy S/P craniotomy S/P lower limb amputation S/P prostatectomy Social History Smoking Status: Never smoker alcohol intake: current ROS Review of Systems ROS Unobtainable: due to encephalopathy Physical Exam Const Constitutional Narrative: Anasarca. On nonrebreather General Appearance: lethargic and ill appearing HEENT normocephalic and head/scalp atraumatic HEENT Narrative: Scleral edema appreciated. Neck full ROM, No nuchal rigidity and no lymphadenopathy Chest Chest Narrative: Paradoxical respirations noted Chest: Negative for crepitus Resp Effort and Inspection: paradoxical thoraco-abdominal movements Auscultation: rales and diminished lung sounds; Negative for rhonchi or wheezes Cardio regular rate, regular rhythm, S1 normal heart sound, S2 normal heart sound, no murmurs, no rub and no gallops GI non-tender and non-distended GI Narrative: PEG Auscultation: normoactive bowel sounds Palpation: soft Bladder / Kidney Exam: catheter in place urethral (dark berna urine) Extremity Extremity Narrative: edema with rt BKA Neuro Sensorium / Orientation: lethargic Medical Records Data Medical Nutrition Assessment Dietitian: Malnutrition Criteria Met Start: 05/03/21 12:08 Freq: Status: Active Protocol: Document 05/04/21 14:03 RMA (Rec: 05/04/21 14:03 RMA [id number]) Nutrition Malnutrition Evidence of Malnutrition Exists Yes Malnutrition (severe): Chronic Evidenced By Suboptimal Energy Intake ( Severe),Weight Loss (Severe) Intake Problem Inadequate Enteral Nutrition Infusion Etiology related to gradual advancement as tolerance established Signs/Symptoms as evidenced by TF meeting ~25 % estimated energy needs and ~ 40% estimated protein needs Status Active Problem Inadequate Oral Intake Etiology related to reported nausea, decreased appetite 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/Symptoms as evidenced estimated PO intake meeting <75% of estimated nutritional needs x 3 months, unintentional wt loss Status Active Problem Clinical Problem Chronic Disease or Condition Related Malnutrition Etiology severe malnutrition r/t inadequate energy intake d/t GI dysfunction Signs/Symptoms as evidenced by estimated PO intake meeting <75% of estimated nutritional needs x 3 months, unintentional wt loss of 28#/15% wt loss < 6 months and need for TF support Status Active Problem Recommendation Dietitian Recommendations/Changes 1) Diet as tolerated, will adjust to sodium-restricted/ consistent-carbohydrate/ protein-restricted w/ 1500ml FR---pt is not taking significant PO; suggest regular diet if PO only for comfort and remains insignificant at meals. 2) Will d/c ensure clear TID ( medpass) poor oral intake/pt refusal. 3) Recommend Vital AF 1.2 as tolerated to goal rate of 65mL /hour w/ 40mL H2O flush every 4 hours to provide 1872 calories, 117 g protein, and 1505mL free water/day. Gradually increase by 10mL/ hour every 8-12 hours as pt tolerates until goal rate is achieved. As ordered, enteral nutrition would meet 100% of estimated nutritional needs. Will decrease estimated protein needs given renal status and consider different product as TF advanced and tolerance established if renal status remains compromised. 4) Daily weights. 5) Will adjust EN recommendations if pt able to consume some nutrition via PO diet; if pt going to be completely NPO would recommend transition to bolus enteral nutrition feedings and will adjust recommendations as indicated. Lab / Micro Data Result Diagrams: 05/05/21 05:05 05/05/21 05:05 Labs: Laboratory Results - last 24 hr 05/04/21 07:54: B-Natriuretic Peptide 1937.8 H 05/04/21 10:28: Procalcitonin 4.87 H 05/04/21 10:50: MRSA (PCR) Negative 05/04/21 11:15: COVID-19 ([facility]) Not Detected 05/04/21 13:14: POC Glucose 140 H 05/04/21 17:13: POC Glucose 153 H 05/04/21 23:40: Ammonia 18.0 05/04/21 23:55: POC Glucose 133 H 05/05/21 00:05: WBC 9.9, RBC 2.97 L, Hgb 8.3 L, Hct 25.1 L, MCV 84.5, MCH 27.9, MCHC 33.1, RDW Std Deviation 58.8 H, RDW Coeff of Armani 19.3 H, Plt Count 123 L, MPV 11.1, Immature Gran % (Auto) 0.600, Neut % (Auto) 88.8 H, Lymph % (Auto) 4.1 L, Kent % (Auto) 6.4, Eos % (Auto) 0.0, Baso % (Auto) 0.1, Absolute Neuts (auto) 8.8 H, Absolute Lymphs (auto) 0.41 L, Nucleated RBC % 0.9, Differential Comment SCANNED 05/05/21 00:05: Sodium 142, Potassium 3.6, Chloride 114 H, Carbon Dioxide 15.0 L, Anion Gap 13, BUN 68 H, Creatinine 3.30 H, Estim Creat Clear Calc 15.84, Est GFR (MDRD) Af Amer 23 L, Est GFR (MDRD) Non-Af 19 L, BUN/Creatinine Ratio 20.6 H, Glucose 198 H, Calcium 8.1 L 05/05/21 05:05: WBC 10.0, RBC 2.98 L, Hgb 8.2 L, Hct 25.5 L, MCV 85.6, MCH 27.5, MCHC 32.2, RDW Std Deviation 60.3 H, RDW Coeff of Armani 19.4 H, Plt Count 123 L, MPV 10.3, Immature Gran % (Auto) 1.100 H, Neut % (Auto) 88.6 H, Lymph % (Auto) 4.5 L, Kent % (Auto) 5.7, Eos % (Auto) 0.0, Baso % (Auto) 0.1, Absolute Neuts (auto) 8.9 H, Absolute Lymphs (auto) 0.45 L, Nucleated RBC % 1.0, Differential Comment SCANNED 05/05/21 05:05: Sodium 144, Potassium 3.3 L, Chloride 116 H, Carbon Dioxide 15.0 L, Anion Gap 13, BUN 67 H, Creatinine 3.07 H, Estim Creat Clear Calc 17.03, Est GFR (MDRD) Af Amer 25 L, Est GFR (MDRD) Non-Af 21 L, BUN/Creatinine Ratio 21.8 H, Glucose 187 H, Calcium 7.3 L 05/05/21 05:05: Uric Acid 9.0 H, Phosphorus 5.0 H, Magnesium 1.9 ABG Data ABG results: ABG 05/05/21 09:51 Specimen Type ART Sample Site R Fem pH 7.14 L* Bicarbonate Actual 12.6 L Total CO2 14 Base Excess -16 L O2 Saturation 88 L ABG pCO2 36.8 ABG pO2 69 L Brady Test N/A O2 Delivery Device NRB Crit Call To/Read Back Yes Blood Gas Notified Whom Abdiel Radiology Impression Chest X-Ray 05/04/21 22:50 IMPRESSION: No major interval change from an examination of approximately 22 hours earlier. Electronically Signed: Huey ShiraDO at 23:58 EST Tel [phone], Service support , Intubation Indication: Respiratory failure Consent was obtained from: Daughter The patient was placed in the appropriate sniffing position. Preoxygenated sedation via bag mask ventilation was provided for a minimum of 3 minutes. The patient had continuous cardiac as well as pulse oximetry monitoring during the procedure. Procedure sedation was provided by the administration of 10 mg of etomidate. Direct laryngoscopy was then performed using a number 4 blade, which revealed a grade 2 view. A 8 mm endotracheal tube was visualized advancing between the cords to the level of 24 cm at the lip. The stylette was then removed and discarded. Tube placement was confirmed by fogging in the tube along with equal and bilateral breath sounds. Colorimetric change was visualized on the CO2 meter. The cuff was then inflated and the tube secured using a commercially available device. A good pulse oximetry waveform was seen on the monitor throughout the procedure. A portable chest x-ray showed endotracheal tube was slightly high, so this was advanced 2 cm. The patient tolerated the procedure well. Charges/Coding Procedures Hospitalists Procedures: [id number] Critial Care 1st Hr
[2021-05-05 10:53] LABS: CPK Total, Creatine Kinase 59 U/L (39-308); Triglycerides 133 mg/dL
[2021-05-05] MEDS: Sodium Bicarbonate 8.4% 50 ML Syringe 50 MEQ IV (10:55)
--- NOTE | 2021-05-05 11:00 | RAD_ITS ---
STUDY: X-RAY CHEST REASON FOR EXAM: Male, 81 years old. Dialysis catheter line placement TECHNIQUE: Single AP portable view of the chest. COMPARISON: Earlier today FINDINGS: EKG leads overlie the chest. Stable appearance of the right-sided PICC line, ET and NG tube. A right IJ dialysis catheter has been placed since the previous study, tip in the distal SVC. Stable opacifications in both lung james with blunting of the left costophrenic angle. Lung james show no interval change Normal size heart. Normal mediastinum and annetta. Normal visualized pulmonary arteries. Normal visualized aortic arch and descending thoracic aorta. There are diffuse degenerative changes of the visualized thoracic spine. There is degenerative osteoarthritis of the bilateral shoulders. There is no demonstrated abnormality of the visualized soft tissue structures of the upper abdomen. RAD/CXR for Line Placement IMPRESSION: Right IJ dialysis catheter has been placed, tip is in the distal SVC, no complications. Lung james show no interval change since the previous study, stable left pleural effusion Electronically Signed: Dennys Alcazar MD at 11:22 EST , Service support ,
--- NOTE | 2021-05-05 11:04 | PCM.OPRPT ---
Report of Operation Date of Procedure: 05/05/21 Pre-Operative Diagnosis: Acute renal failure, acute respiratory failure Post-Operative Diagnosis: Same Surgery/Procedure Performed:: Right internal jugular double-lumen temporary dialysis catheter placement Description of Surgical Findings:: Timeout performed right neck was prepped with chlorhexidine under ultrasound guidance 1% lidocaine was instilled 2 cc was used then underwent sound guidance percutaneous access was gained to the right internal jugular vein followed by Seldinger wire advancement. Track was incised serially dilated than the double-lumen temporary dialysis catheter was advanced. Was secured to the skin with 2-0 silk. It aspirated easily was flushed with heparinized saline. Sterile dressings applied. No apparent complication. Blood loss minimal. Separable chest x-ray is pending. Vince English M.D., F.A.C.S. Surgeon: Vince English Type of Anesthesia: Local
[2021-05-05] MEDS: Chlorhexidine 15 ML PO ×2 (11:45→21:00)
--- NOTE | 2021-05-05 12:07 | CASEMGMT ---
SW spoke w/ in waiting area earlier today, offered support. Daughter and grandson present also. SW let RN know is here, she will come out to waiting area to get the to see pt when appropriate. NGHIA Lind
[2021-05-05] MEDS: 0.9% Saline Lock 10 ML Syringe IV ×2 (12:35→21:01)
[2021-05-05 12:51] LABS: Blood Gas Specimen Type VEN; O2 Delivery Device NRB; VBG BASE EXCESS -15 mmol/L (-1.0-3.5); VBG Bicarbonate 14 mmol/L (22-26); VBG PO2 62 mmHg (25-40); VBG SO2 85 % (50-70); VBG TCO2 15 mmol/L (23-33); VBG pCO2 35.7 mmHg (41-51); VBG pH 7.19 (7.32-7.42)
--- NOTE | 2021-05-05 13:45 | NURSING ---
and daughter present. Came back to the room to see the patient and then returned to the waiting room until dialysis was started. Once dialysis started the patient became bradycardic with a HR of 30-40's. Levophed infusing to stabilize BP. Family updated and stated that they did not want vasopressors. Spoke in length with the family regarding vasopressors and that the care team was not informed that they did not want vasopressors. All questions answered and discussed the need for levophed to maintain and adequate blood pressure. The stated that their daughter Marci is a doctor and that they will call her to update her and discuss if they want to continue with the plan of care or if they want to withdraw all care and make the patient a DNRCC. Daughter Abdiel updated
--- NOTE | 2021-05-05 14:06 | PN.ID_ITS ---
Physical Exam Narrative Moved to icu, intubated. HD today. Const Constitutional Narrative: ill appearing Resp Auscultation: diminished lung sounds Cardio regular rate and regular rhythm GI non-tender and non-distended Skin no rashes or lesions noted ID ID: Route of nutrition/ use of supplements: [] Nutritional Intake: [] IV Site: [] Ferrari Catheter: [] Assessment & Plan Assessment/Plan (1) Acute renal failure: QUALIFIERS: Acute renal failure type: unspecified Qualified Code(s): N17.9 - Acute kidney failure, unspecified (2) History of renal disease: (3) Colonic mass: PLAN: Taken to OR 04/29/[address] English for R hemicolectomy with en bloc partial gastrectomy and PEG placement. Path showed gastritis, h.pylori neg. Now with PUMA on CKD, neph following. Worsened hypoxia, abx changed from ceftria xone to vanc/zosyn, now on vent. Family having goals of care discussion. Will follow
--- NOTE | 2021-05-05 14:10 | CHAPLAIN ---
Type of Pastoral Visit ___ Initial Visit ___ Follow-up Visit ___ On-call Visit ___ General Patient Visit ___ Spiritual Assessment _x__ Family Conference ___ Bereavement ___ Rapid Response ___ Code Blue ___ Other (describe below) Pastoral Care Referral From ___ Patient _x__ Family ___ Nurse ___ Physician ___ Fence Installer ___ Champion Of Sustainable Design ___ Other (describe below) Sacrament/Intervention _x__ Active listening ___ Anointing ___ Hoahaoism ___ Bereavement ___ Communion _x__ Caitie exploration ___ ___ Life review _x__ Prayer ___ Reconciliation ___ Sacrament of Sick _x__ Supportive presence ___ Wedding ___ Other (describe below) Pastoral Comments met with family members twice; family is cooperative but anxious about dialysis and outcome possibilities; gave time for family members to express themselves and to offer presence and prayer; will continue to follow this situation and family
[2021-05-05] MEDS: Dextrose 50%-Water 25 GM/50 ML DISP.SYRIN IV (14:52)
[2021-05-05 16:21] LABS: Bedside Glucose 62 mg/dL (70-110)
[2021-05-05 16:21] LABS: Bedside Glucose 91 mg/dL (70-110)
--- NOTE | 2021-05-05 16:43 | DIALYSIS ---
hemodialysis today x 3hrs. Ran pt even no fluid removed. Pt stable at thuis time. Report to LOVELY Flores
[2021-05-05 17:21] LABS: Base Excess -5 mmol/L (-2 to +2); Bicarbonate 19.8 mmol/L (22-26); Blood Gas Specimen Type ART; FI02 35; Mode AC; O2 Delivery Device Adult Vent; PEEP 5; PO2 125 mmHG (75-100); RR 12; SITE R Fem; SO2 99 % (95-99); Total Carbon Dioxide 21 mmol/L; Vt 450; pCO2 30.5 mmHg (35-45); pH 7.42 (7.35-7.45)
--- NOTE | 2021-05-05 17:44 | CPS ---
Critical values noted and notified RN William Beam of Venous blood gas values
[2021-05-05] MEDS: Magnesium Chloride 64 MG Delay Rel.Tablet 128 MG PO (17:58)
--- NOTE | 2021-05-05 18:06 | EKG12_ITS ---
Test Reason : ARRHYTHMIA Blood Pressure : / mmHG Vent. Rate : 051 BPM Atrial Rate : 051 BPM P-R Int : 174 ms QRS Dur : 070 ms QT Int : 480 ms P-R-T Axes : 027 002 225 degrees QTc Int : 442 ms Sinus bradycardia Low voltage QRS Nonspecific ST and T wave abnormality Abnormal ECG Confirmed by SLOANE CALDWELL, TWIN ([id number]), photographic editor JAMIR WILKNIS ([id number]) on 05/12/2021 9:30:33 AM Referred By: JOSE Confirmed By:TWIN ANTON MD
[2021-05-05 18:16] LABS: Bedside Glucose 105 mg/dL (70-110)
[2021-05-05] MEDS: Vital AF 1.2 Cal Liquid 1,000 ML 15 ML GT (18:17)
[2021-05-05 18:20] LABS: Anion Gap 12 (5-15); BUN 45 mg/dL (7-18); BUN/Creat Ratio 19.6 RATIO (10-20); Calcium,Total 7.1 mg/dL (8.5-10.1); Chloride 106 mmol/L (98-107); EST Glomerular Filtration Rate 29 mL/min (>60); Est Glom Filt Rate - Afr Amer 35 mL/min (>60); Estimated Creatinine Clearance 22.73 ml/min; Glucose 314 mg/dL (74-106); Potassium 3.5 mmol/L (3.5-5.1); Sodium Level 142 mmol/L (136-145)
[2021-05-05] MEDS: Propranolol 10 MG Tablet 30 MG PO (21:00)
[2021-05-06] VITALS (22 sets, daily range): BP systolic 85–123; BP diastolic 51–70; PULSE 36–63; RESP 12–21; TEMP 35.7–36.5; O2SAT 96–100
[2021-05-06] MEDS: Insulin Lispro 100 UNIT/ML INSULN.PEN SC ×2 (00:32→05:55)
[2021-05-06 00:46] LABS: Bedside Glucose 217 mg/dL (70-110)
[2021-05-06 05:23] LABS: Absolute Lymphocyte Count 0.49 X10^3/uL (0.83-4.51); Absolute Neutrophil Count 11.1 X10^3/uL (2.0-7.7); Basophil# 0.01 X10^3/uL; Basophil% 0.1 % (0-1); Hematocrit 26.7 % (40-54); Hemoglobin 8.7 g/dL (13.0-16.5); Lymphocyte # 0.49 X10^3/ul (0.83-4.51); Lymphocyte % 3.9 % (19-41); Mean Corp Hgb Conc 32.6 g/dL (32-36); Mean Corpuscular Volume 82.9 fL (80-94); Mean Platelet Vol. 11.1 fl (6.2-12.0); Monocyte# 0.74 X10^3/uL; Monocyte% 5.9 % (0-10); Neutrophil % 88.6 % (47-70); POSITIVE DIFFERENTIAL YES; Platelet Count 128 K/mm3 (150-450); RBC Distribution Width CV 18.6 % (11.6-14.6); RBC Distribution Width SD 56.2 fl (35.1-43.9); Red Blood Count 3.22 M/mm3 (4.6-6.2); White Blood Count 12.5 K/mm3 (4.4-11.0)
[2021-05-06 05:43] LABS: Differential Indicated SCAN CRITERIA MET
[2021-05-06 05:44] LABS: ALB/GLOB Ratio 0.6 RATIO (0.9-2.4); AST(SGOT) 32 U/L (15-37); Alanine Aminotransfer ALT/SGPT 43 U/L (16-61); Albumin, Serum 1.5 g/dL (3.2-5.0); Alkaline Phosphatase 67 U/L (45-117); Anion Gap 10 (5-15); BUN 53 mg/dL (7-18); BUN/Creat Ratio 18.9 RATIO (10-20); Chloride 105 mmol/L (98-107); Creatinine, Serum 2.81 mg/dL (0.70-1.30); EST Glomerular Filtration Rate 23 mL/min (>60); Est Glom Filt Rate - Afr Amer 28 mL/min (>60); Estimated Creatinine Clearance 18.61 ml/min; Globulin 2.5 g/dL (2.2-4.2); Glucose 323 mg/dL (74-106); Potassium 3.4 mmol/L (3.5-5.1); Sodium Level 138 mmol/L (136-145)
--- NOTE | 2021-05-06 05:48 | PN.SURG_ITS ---
Subjective Subjective Patient is in the ICU. He is on ventilator requiring norepinephrine support. He is requiring sedation so he would not become agitated. He did receive 1 session of hemodialysis yesterday via temporary right internal jugular lines. Tube feeding is running through his PEG tube at 15 cc an hour. Objective Data Objective Data Vital Signs: Vital Signs Temp Pulse Resp BP Pulse Ox 96.2 F L 49 L 12 100/56 L 97 05/06/21 00:00 05/06/21 05:23 05/06/21 05:23 05/06/21 03:00 05/06/21 05:23 Oxygen Flow Rate (L/min) 15 Oxygen Delivery Method Mechanical Ventilator Weight: 179 lb 8 oz Body Mass Index (BMI) 26.2 Intake & Output: Intake and Output for Last 24 Hours 05/04/21 05/05/21 05/06/21 23:59 23:59 23:59 Intake Total 1990.0 / 1990.0 3003.39 / 3043.99 209.92 / 209.92 Output Total 195 / 195 275 / 275 Balance 1795.0 / 1795.0 2728.39 / 2768.99 209.92 / 209.92 Medical Nutrition Assessment Dietitian: Malnutrition Criteria Met Start: 05/03/21 12:08 Freq: Status: Active Protocol: Document 05/05/21 12:00 RMA (Rec: 05/05/21 12:01 RMA [id number]) Nutrition Malnutrition Evidence of Malnutrition Exists Yes Malnutrition (severe): Chronic Evidenced By Suboptimal Energy Intake ( Severe),Weight Loss (Severe) Intake Problem Inadequate Oral Intake Etiology related to reported nausea, 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 Recommend TF as medical status allows---Vital AF 1.2 as tolerated to goal rate of 65mL /hour w/ 40mL H2O flush every 4 hours to provide 1872 calories, 117 g protein, and 1505mL free water/day. Gradually increase by 10mL/ hour every 8-12 hours as pt tolerates until goal rate is achieved. As ordered, enteral nutrition would meet 100% of estimated nutritional needs. Will decrease estimated protein needs given renal status and consider different product as TF advanced and tolerance established if renal status remains compromised. Daily weights. Lab / Micro Data Result Diagrams: 05/06/21 05:00 05/06/21 05:00 Labs: Laboratory Results - last 24 hr 05/05/21 05:05: Differential Comment SCANNED 05/05/21 05:05: Sodium 144, Potassium 3.3 L, Chloride 116 H, Carbon Dioxide 15.0 L, Anion Gap 13, BUN 67 H, Creatinine 3.07 H, Estim Creat Clear Calc 17.03, Est GFR (MDRD) Af Amer 25 L, Est GFR (MDRD) Non-Af 21 L, BUN/Creatinine Ratio 21.8 H , Glucose 187 H, Calcium 7.3 L 05/05/21 05:05: Uric Acid 9.0 H, Phosphorus 5.0 H, Magnesium 1.9 05/05/21 05:05: Total Creatine Kinase 59, Triglycerides 133 05/05/21 14:48: POC Glucose 62 L 05/05/21 16:13: POC Glucose 91 05/05/21 17:54: POC Glucose 105 05/05/21 17:55: Sodium 142, Potassium 3.5, Chloride 106, Carbon Dioxide 24.0, Anion Gap 12, BUN 45 H, Creatinine 2.30 H, Estim Creat Clear Calc 22.73, Est GFR (MDRD) Af Amer 35 L, Est GFR (MDRD) Non-Af 29 L, BUN/Creatinine Ratio 19.6, Glu cose 314 H, Calcium 7.1 L 05/06/21 00:30: POC Glucose 217 H 05/06/21 05:00: Sodium 138, Potassium 3.4 L, Chloride 105, Carbon Dioxide 23.0, Anion Gap 10, BUN 53 H, Creatinine 2.81 H, Estim Creat Clear Calc 18.61, Est GFR (MDRD) Af Amer 28 L, Est GFR (MDRD) Non-Af 23 L, BUN/Creatinine Ratio 18.9, Glucose 323 H, Calcium 7.0 L, Total Bilirubin 0.50, AST 32, ALT 43, Alkaline Phosphatase 67, Total Protein 4.0 L, Albumin 1.5 L, Globulin 2.5, Albumin/Globulin Ratio 0.6 L 05/06/21 05:00: WBC 12.5 H, RBC 3.22 L, Hgb 8.7 L, Hct 26.7 L, MCV 82.9, MCH 27.0, MCHC 32.6, RDW Std Deviation 56.2 H, RDW Coeff of Armani 18.6 H, Plt Count 128 L, MPV 11.1, Immature Gran % (Auto) 1.500 H, Neut % (Auto) 88.6 H, Lymph % (Auto) 3.9 L, Mcminn % (Auto) 5.9, Eos % (Auto) 0.0, Baso % (Auto) 0.1, Absolute Neuts (auto) 11.1 H, Absolute Lymphs (auto) 0.49 L, Nucleated RBC % 2.0 Micro: Microbiology 04/30/21 06:50 Urine Catheter - Ferrari Urine Culture - Final Culture exhibits no growth. ABG Data ABG results: ABG 05/05/21 05/05/21 05/05/21 09:06 09:51 17:14 Specimen Type ALICIA ART ART Sample Site R Fem R Fem pH 7.14 L* 7.42 Bicarbonate Actual 12.6 L 19.8 L Total CO2 14 21 Base Excess -16 L -5 L O2 Saturation 88 L 99 O2 % 35 ABG pCO2 36.8 30.5 L ABG pO2 69 L 125 H Brady Test N/A N/A VBG pH 7.19 L* VBG pO2 62 H VBG HCO3 14 L VBG Total CO2 15 L VBG O2 Sat (Calc) 85 H VBG Base Excess -15 L POC Mix VBG pCO2 Pt Tmp 35.7 L Respiration Rate 12 O2 Delivery Device NRB NRB Adult Vent Vent Mode AC Tidal Volume 450 POC PEEP 5 Crit Call To/Read Back Yes Yes Blood Gas Notified Whom Abdiel Radiography Diagnostic Testing: Radiology Impression Chest X-Ray 05/05/21 10:25 IMPRESSION: Lung james show significant overall improvement compared to the previous study with near complete resolution of the interstitial and airspace opacifications in both lung james stable left pleural effusion. Support lines and tubes as described, no complications Slight decreased amount of pneumoperitoneum compared to the previous study, patient is postop. Electronically Signed: Dennys Alcazar MD at 10:44 EST , Service support , Chest X-Ray 05/05/21 11:00 IMPRESSION: Right IJ dialysis catheter has been placed, tip is in the distal SVC, no complications. Lung james show no interval change since the previous study, stable left pleural effusion Electronically Signed: Dennys Alcazar MD at 11:22 EST , Service support , Physical Exam Resp Resp Narrative: Anterior chest remains clear GI GI Narrative: Abdomen remains very soft and nontender wounds are clean and dry Assessment & Plan Assessment/Plan (1) Respiratory failure, acute: QUALIFIERS: Respiratory failure complication: hypercapnia Qualified Code(s): J96.02 - Acute respiratory failure with hypercapnia PLAN: Acute chronic renal failure with subsequent metabolic acidosis and subsequent respiratory failure. Need for hemodialysis. My understanding is that family members are now wanting to withdraw support. It is of note that the family was offered hospice/palliative care preoperatively but elected to pursue this high risk procedure. Ongoing medical care is indicated. Operative site is stable. If ongoing care tube feeding can be increased to 25 cc an hour Vince English M.D., F.A.C.S.
--- NOTE | 2021-05-06 05:52 | PCM.PN.INT ---
Assessment & Plan Assessment/Plan (1) Encephalopathy acute: (2) Respiratory failure, acute: QUALIFIERS: Respiratory failure complication: hypercapnia Qualified Code(s): J96.02 - Acute respiratory failure with hypercapnia (3) Colon cancer: QUALIFIERS: Colon location: transverse Qualified Code(s): C18.4 - Malignant neoplasm of transverse colon (4) Acute renal failure: QUALIFIERS: Acute renal failure type: unspecified Qualified Code(s): N17.9 - Acute kidney failure, unspecified PLAN: RECOMMENDATIONS: 1. Continue assist control mode of mechanical ventilation. 2. Ongoing hemodialysis support per nephrology recommendations. 3. Continue antimicrobials. 4. Continue Levophed to maintain a mean arterial pressure at or above 65 mmHg. 5. Bicarbonate infusion can be discontinued from my perspective. 6. Continue tube feeds as tolerated. 7. Continue appropriate ICU prophylaxis. 8. Ongoing goals of care discussion with the patient's family. IMPRESSIONS: 1. Acute combined respiratory failure secondary to respiratory muscle fatigue Clinical suspicion for respiratory failure secondary to respiratory muscle fatigue. The patient did ultimately require intubation on May 05. His ventilator requirements are minimal. However, he failed his spontaneous awakening trial this morning due to agitation. No clear pulmonary infectious source has ever been identified. Plan to continue current supportive measures and reattempt spontaneous awakening/breathing trial tomorrow morning. 2. Acute on CKD/ anion gap metabolic acidosis/ hypokalemia Nephrology is currently following to assist with hemodialysis needs. Continuous bicarbonate infusion can be discontinued from my perspective. 3. Distributive shock Although no clear source of infection has yet to be identified, blood cultures do not appear to have been obtained. Translocation from GI source is a possibility. For now, it is reasonable to continue antimicrobials per ID recommendations. Will obtain and send blood cultures. Continue Levophed to maintain mean arterial pressure at or above 65 mmHg. 4. Diabetes mellitus type 2/hypertension/acute DVT of left femoral vein/dementia/malnutrition/advanced age Complicates care, management, recovery and prognosis. Hold antihypertensive medications given hypotension. The patient has an IVC filter in place. The patient does have a recent diagnosis of a colon cancer (invasive adenocarcinoma). TIME: 33 minutes of critical care time, independent of procedures, was spent addressing the patient's acute combined respiratory failure, acute on chronic kidney disease, anion gap metabolic acidosis, distributive shock, review of all data and collaboration with care team. Subjective Subjective The patient was seen and examined at the bedside this morning. Events from the last 24 hours have been reviewed. The patient remains on Levophed at 15 mcg/min to maintain hemodynamic stability. He is currently afebrile. The patient remains on assist control mode of mechanical ventilation with an FiO2 requirement of 25%. He failed his spontaneous awakening trial this morning due to agitation. The patient remains sedated on propofol and fentanyl. The patient tolerated dialysis yesterday. He remains on a continuous bicarbonate infusion. The patient is currently documented to be overall net +14 L for the hospitalization. Potassium is low this morning at 3.4. Creatinine remains elevated at 2.8. The patient remains on antimicrobials and is currently tolerating tube feeds. Objective Data Objective Data The patient's most recent lab work, culture data and imaging studies have all been personally reviewed. Lower extremity Doppler study from April 22 demonstrated an acute DVT in the left common femoral vein. Urine culture dated April 30 was unremarkable. Sputum culture is currently pending. Vital Signs: Vital Signs Temp Pulse Resp BP Pulse Ox 96.2 F L 49 L 12 100/56 L 97 05/06/21 00:00 05/06/21 05:23 05/06/21 05:23 05/06/21 03:00 05/06/21 05:23 Oxygen Flow Rate (L/min) 15 Oxygen Delivery Method Mechanical Ventilator Weight: 81.42 kg Body Mass Index (BMI) 26.2 Intake & Output: Intake and Output for Last 24 Hours 05/04/21 05/05/21 05/06/21 23:59 23:59 23:59 Intake Total 1990.0 / 1990.0 3003.39 / 3043.99 209.92 / 209.92 Output Total 195 / 195 275 / 275 Balance 1795.0 / 1795.0 2728.39 / 2768.99 209.92 / 209.92 Medical Nutrition Assessment Dietitian: Malnutrition Criteria Met Start: 05/03/21 12:08 Freq: Status: Active Protocol: Document 05/05/21 12:00 RMA (Rec: 05/05/21 12:01 RMA [id number]) Nutrition Malnutrition Evidence of Malnutrition Exists Yes Malnutrition (severe): Chronic Evidenced By Suboptimal Energy Intake ( Severe),Weight Loss (Severe) Intake Problem Inadequate Oral Intake Etiology related to reported nausea, 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 Recommend TF as medical status allows---Vital AF 1.2 as tolerated to goal rate of 65mL /hour w/ 40mL H2O flush every 4 hours to provide 1872 calories, 117 g protein, and 1505mL free water/day. Gradually increase by 10mL/ hour every 8-12 hours as pt tolerates until goal rate is achieved. As ordered, enteral nutrition would meet 100% of estimated nutritional needs. Will decrease estimated protein needs given renal status and consider different product as TF advanced and tolerance established if renal status remains compromised. Daily weights. Lab / Micro Data Attestation: I reviewed the patient's lab results. Result Diagrams: 05/06/21 05:00 05/06/21 05:00 Labs: Laboratory Results - last 24 hr 05/05/21 05:05: Differential Comment SCANNED 05/05/21 05:05: Sodium 144, Potassium 3.3 L, Chloride 116 H, Carbon Dioxide 15.0 L, Anion Gap 13, BUN 67 H, Creatinine 3.07 H, Estim Creat Clear Calc 17.03, Est GFR (MDRD) Af Amer 25 L, Est GFR (MDRD) Non-Af 21 L, BUN/Creatinine Ratio 21.8 H, Glucose 187 H, Calcium 7.3 L 05/05/21 05:05: Uric Acid 9.0 H, Phosphorus 5.0 H, Magnesium 1.9 05/05/21 05:05: Total Creatine Kinase 59, Triglycerides 133 05/05/21 14:48: POC Glucose 62 L 05/05/21 16:13: POC Glucose 91 05/05/21 17:54: POC Glucose 105 05/05/21 17:55: Sodium 142, Potassium 3.5, Chloride 106, Carbon Dioxide 24.0, Anion Gap 12, BUN 45 H, Creatinine 2.30 H, Estim Creat Clear Calc 22.73, Est GFR (MDRD) Af Amer 35 L, Est GFR (MDRD) Non-Af 29 L, BUN/Creatinine Ratio 19.6, Glucose 314 H, Calcium 7.1 L 05/06/21 00:30: POC Glucose 217 H 05/06/21 05:00: Sodium 138, Potassium 3.4 L, Chloride 105, Carbon Dioxide 23.0, Anion Gap 10, BUN 53 H, Creatinine 2.81 H, Estim Creat Clear Calc 18.61, Est GFR (MDRD) Af Amer 28 L, Est GFR (MDRD) Non-Af 23 L, BUN/Creatinine Ratio 18.9, Glucose 323 H, Calcium 7.0 L, Total Bilirubin 0.50, AST 32, ALT 43, Alkaline Phosphatase 67, Total Protein 4.0 L, Albumin 1.5 L, Globulin 2.5, Albumin/Globulin Ratio 0.6 L 05/06/21 05:00: WBC 12.5 H, RBC 3.22 L, Hgb 8.7 L, Hct 26.7 L, MCV 82.9, MCH 27.0, MCHC 32.6, RDW Std Deviation 56.2 H, RDW Coeff of Armani 18.6 H, Plt Count 128 L, MPV 11.1, Immature Gran % (Auto) 1.500 H, Neut % (Auto) 88.6 H, Lymph % (Auto) 3.9 L, Stanton % (Auto) 5.9, Eos % (Auto) 0.0, Baso % (Auto) 0.1, Absolute Neuts (auto) 11.1 H, Absolute Lymphs (auto) 0.49 L, Nucleated RBC % 2.0 Micro: Microbiology 04/30/21 06:50 Urine Catheter - Ferrari Urine Culture - Final Culture exhibits no growth. ABG Data ABG results: ABG 05/05/21 05/05/21 05/05/21 09:06 09:51 17:14 Specimen Type ALICIA ART ART Sample Site R Fem R Fem pH 7.14 L* 7.42 Bicarbonate Actual 12.6 L 19.8 L Total CO2 14 21 Base Excess -16 L -5 L O2 Saturation 88 L 99 O2 % 35 ABG pCO2 36.8 30.5 L ABG pO2 69 L 125 H Brady Test N/A N/A VBG pH 7.19 L* VBG pO2 62 H VBG HCO3 14 L VBG Total CO2 15 L VBG O2 Sat (Calc) 85 H VBG Base Excess -15 L POC Mix VBG pCO2 Pt Tmp 35.7 L Respiration Rate 12 O2 Delivery Device NRB NRB Adult Vent Vent Mode AC Tidal Volume 450 POC PEEP 5 Crit Call To/Read Back Yes Yes Blood Gas Notified Whom Abdiel Radiography Diagnostic Testing: Radiology Impression Chest X-Ray 05/05/21 10:25 IMPRESSION: Lung james show significant overall improvement compared to the previous study with near complete resolution of the interstitial and airspace opacifications in both lung james stable left pleural effusion. Support lines and tubes as described, no complications Slight decreased amount of pneumoperitoneum compared to the previous study, patient is postop. Electronically Signed: Dennys Alcazar MD at 10:44 EST , Service support , Chest X-Ray 05/05/21 11:00 IMPRESSION: Right IJ dialysis catheter has been placed, tip is in the distal SVC, no complications. Lung james show no interval change since the previous study, stable left pleural effusion Electronically Signed: Dennys Alcazar MD at 11:22 EST , Service support , Physical Exam Const Constitutional Narrative: Intubated, sedated and mechanically ventilated. No ventilator dyssynchrony noted. HEENT normocephalic and head/scalp atraumatic Mouth: endotracheal tube in place and OG tube in place Eyes PERRL and EOMs intact bilaterally Neck supple General: trachea midline and CVC in place Chest inspection of chest normal Resp Auscultation: Negative for rales, rhonchi or wheezes Cardio S1 normal heart sound and S2 normal heart sound Rate: bradycardia GI soft to palpation and non-tender GI Narrative: +PEG Extremity General Extremity: edema bilateral lower extremity Skin no rashes or lesions noted Neuro Neuro Narrative: Tremulous due to Parkinson's. Opens eyes but does not follow any commands. Sensorium / Orientation: sedated on vent Charges/Coding Procedures Hospitalists Procedures: 01860 Critial Care 1st Hr
[2021-05-06] MEDS: Propranolol 10 MG Tablet 30 MG PO (05:55)
[2021-05-06 06:14] LABS: Differential Comment SCANNED
[2021-05-06] MEDS: TITRATION PARAMETER CHANGE 1 EACH IV (07:01)
--- NOTE | 2021-05-06 07:40 | PN.HOSP_ITS ---
Subjective Subjective Patient over the last 24 hours with need for initiation of Levophed as well as intubation. Patient on a.m. extubation trial was noted to be significantly agitated therefore required resumption of his sedation including propofol and fentanyl. Per records patient significantly volume over 4 hospitalization +14 L. Patient creatinine similar to day prior. Patient maintained on broad- spectrum antibiotic therapy. Family decision for transition to comfort care measures as noted below with impending terminal wean. Patient without obvious evidence of fevers, chills, nausea, emesis, abdominal pain, chest pain. Objective Data Objective Data Vital Signs: Vital Signs Temp Pulse Resp BP Pulse Ox 97.2 F L 52 L 12 107/70 100 05/06/21 04:00 05/06/21 07:00 05/06/21 07:00 05/06/21 07:00 05/06/21 07:00 Oxygen Flow Rate (L/min) 15 Oxygen Delivery Method Mechanical Ventilator Weight: 179 lb 8 oz Body Mass Index (BMI) 26.2 Intake & Output: Intake and Output for Last 24 Hours 05/04/21 05/05/21 05/06/21 23:59 23:59 23:59 Intake Total 1990.0 / 1990.0 3003.39 / 3043.99 609.25 / 609.25 Output Total 195 / 195 275 / 275 35 / 35 Balance 1795.0 / 1795.0 2728.39 / 2768.99 574.25 / 574.25 Medical Nutrition Assessment Dietitian: Malnutrition Criteria Met Start: 05/03/21 12:08 Freq: Status: Active Protocol: Document 05/05/21 12:00 RMA (Rec: 05/05/21 12:01 RMA [id number]) Nutrition Malnutrition Evidence of Malnutrition Exists Yes Malnutrition (severe): Chronic Evidenced By Suboptimal Energy Intake ( Severe),Weight Loss (Severe) Intake Problem Inadequate Oral Intake Etiology related to reported nausea, decreased appetite 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 Signs/Symptoms as evidenced estimated PO intake meeting <75% of estimated nutritional needs x 3 months, unintentional wt loss; currently NPO and TF hold Status Active Problem Clinical Problem Chronic Disease or Condition Related Malnutrition Etiology severe malnutrition r/t inadequate energy intake d/t GI dysfunction Signs/Symptoms as evidenced by estimated PO intake meeting <75% of estimated nutritional needs x 3 months, unintentional wt loss of 28#/15% wt loss < 6 months, NPO with TF on hold Status Active Problem Recommendation Dietitian Recommendations/Changes Will make pt NPO due to intubation. Recommend TF as medical status allows---Vital AF 1.2 as tolerated to goal rate of 65mL /hour w/ 40mL H2O flush every 4 hours to provide 1872 calories, 117 g protein, and 1505mL free water/day. Gradually increase by 10mL/ hour every 8-12 hours as pt tolerates until goal rate is achieved. As ordered, enteral nutrition would meet 100% of estimated nutritional needs. Will decrease estimated protein needs given renal status and consider different product as TF advanced and tolerance established if renal status remains compromised. Daily weights. Lab / Micro Data Result Diagrams: 05/06/21 05:00 05/06/21 05:00 Labs: Laboratory Results - last 24 hr 05/05/21 05:05: Uric Acid 9.0 H, Phosphorus 5.0 H, Magnesium 1.9 05/05/21 05:05: Total Creatine Kinase 59, Triglycerides 133 05/05/21 14:48: POC Glucose 62 L 05/05/21 16:13: POC Glucose 91 05/05/21 17:54: POC Glucose 105 05/05/21 17:55: Sodium 142, Potassium 3.5, Chloride 106, Carbon Dioxide 24.0, Anion Gap 12, BUN 45 H, Creatinine 2.30 H, Estim Creat Clear Calc 22.73, Est GFR (MDRD) Af Amer 35 L, Est GFR (MDRD) Non-Af 29 L, BUN/Creatinine Ratio 19.6, Glucose 314 H, Calcium 7.1 L 05/06/21 00:30: POC Glucose 217 H 05/06/21 05:00: Sodium 138, Potassium 3.4 L, Chloride 105, Carbon Dioxide 23.0, Anion Gap 10, BUN 53 H, Creatinine 2.81 H, Estim Creat Clear Calc 18.61, Est GFR (MDRD) Af Amer 28 L, Est GFR (MDRD) Non-Af 23 L, BUN/Creatinine Ratio 18.9, Glucose 323 H, Calcium 7.0 L, Total Bilirubin 0.50, AST 32, ALT 43, Alkaline Phosphatase 67, Total Protein 4.0 L, Albumin 1.5 L, Globulin 2.5, Albumin /Globulin Ratio 0.6 L 05/06/21 05:00: WBC 12.5 H, RBC 3.22 L, Hgb 8.7 L, Hct 26.7 L, MCV 82.9, MCH 27.0, MCHC 32.6, RDW Std Deviation 56.2 H, RDW Coeff of Armani 18.6 H, Plt Count 128 L, MPV 11.1, Immature Gran % (Auto) 1.500 H, Neut % (Auto) 88.6 H, Lymph % (Auto) 3.9 L, Brooke % (Auto) 5.9, Eos % (Auto) 0.0, Baso % (Auto) 0.1, Absolute Neuts (auto) 11.1 H, Absolute Lymphs (auto) 0.49 L, Nucleated RBC % 2.0, Differential Comment SCANNED Micro: Microbiology 04/30/21 06:50 Urine Catheter - Ferrari Urine Culture - Final Culture exhibits no growth. ABG Data ABG results: ABG 05/05/21 05/05/21 05/05/21 09:06 09:51 17:14 Specimen Type ALICIA ART ART Sample Site R Fem R Fem pH 7.14 L* 7.42 Bicarbonate Actual 12.6 L 19.8 L Total CO2 14 21 Base Excess -16 L -5 L O2 Saturation 88 L 99 O2 % 35 ABG pCO2 36.8 30.5 L ABG pO2 69 L 125 H Brady Test N/A N/A VBG pH 7.19 L* VBG pO2 62 H VBG HCO3 14 L VBG Total CO2 15 L VBG O2 Sat (Calc) 85 H VBG Base Excess -15 L POC Mix VBG pCO2 Pt Tmp 35.7 L Respiration Rate 12 O2 Delivery Device NRB NRB Adult Vent Vent Mode AC Tidal Volume 450 POC PEEP 5 Crit Call To/Read Back Yes Yes Blood Gas Notified Whom Abdiel Radiography Diagnostic Testing: Radiology Impression Chest X-Ray 05/05/21 10:25 IMPRESSION: Lung james show significant overall improvement compared to the previous study with near complete resolution of the interstitial and airspace opacifications in both lung james stable left pleural effusion. Support lines and tubes as described, no complications Slight decreased amount of pneumoperitoneum compared to the previous study, patient is postop. Electronically Signed: Dennys Alcazar MD at 10:44 EST , Service support , Chest X-Ray 05/05/21 11:00 IMPRESSION: Right IJ dialysis catheter has been placed, tip is in the distal SVC, no complications. Lung james show no interval change since the previous study, stable left pleural effusion Electronically Signed: Dennys Alcazar MD at 11:22 EST , Service support , Physical Exam Narrative Physical Examination: General: Sedated, not alert, not able to answer orientation questions, intubated and sedated in the ICU. Skin: Normal color, normal turgor, no icterus, no cyanosis. HEENT: AT/NC, EOM unable to be assessed, PERRLA, moderately dry MM, intubated with OG also in place. Lungs: Diffusely diminished, greater bases, symmetric rise, no rales, ronchi or wheezing. Heart: Bradycardic with regular rhythm; no gallop, rub audible. Abdomen: Soft, obese, NTTP, no obvious distention, distant hyperactive BS. Extremities: No cyanosis, no clubbing, bilateral lower extremity left greater than right not markedly pitting pedal to proximal arias edema. Neurological: Sedated, not alert, not are answering orientation questions, intubated and sedated, cognitive function not baseline intact; pupils equally reactive to light and accommodation, cranial nerves unable to be assessed well given presentation currently, strength accordingly severely global decrease. Psychiatric: Affect appears flat, sedated, no acute evidence of depressive or anxiety feelings. Assessment & Plan Assessment/Plan (1) Respiratory failure, acute: QUALIFIERS: Respiratory failure complication: hypercapnia Qualified Code(s): J96.02 - Acute respiratory failure with hypercapnia PLAN: The patient is an 81 y/o M w/ PMHx: NAYANA, HTN, hLD, CKD stage III, Hx DVT, Hx essential tremor, Dementia unclear type with unclear behavioral disturbance history, Diabetes mellitus type II who who initially presented to [facility] and was admitted on 04/29/[address] English following recent colonoscopy with evidence of colonic mass status post right eventual colectomy however postop patient had onset significant renal dysfunction. #1. Acute combined respiratory failure with hypercapnia: Patient intubated 05/05/2021 secondary to concern for progressive respiratory failure, more concern for respiratory fatigue component, unclear if infectious component, continued currently on vancomycin as well as Zosyn therapy for #2, chest x-ray 05/05/2021 with right IJ dialysis catheter in place with no obvious evidence of pneumonia,, member of congress following, continued on sedated regimen, maintained on tube feeds, nutrition consulted and following. Recent lengthy discussions for CODE STATUS with transition 05/05/2021 to DNR CCA continued intubation allowance; however, given his ongoing worsening status requiring pressor therapy as noted below transition patient today to DNRCC status with planned impending terminal extubation. #2. Colonic mass with specifically transverse colon mass with large and small bowel obstruction with invasion into the stomach with recent diagnosis colon cancer: Status post or 04/29/2021 with right hemicolectomy with en bloc partial gastrectomy and PEG placement that time with pathology demonstrating gastritis as well as H. pylori noted to be negative, surgical specimen with moderately differentiated high-grade dysplasia consistent with invasive adenocarcinoma invading and adherent to the stomach with 7 out of 7 lymph nodes negative for carcinoma. Continued on IV vancomycin and Zosyn as noted above with ID following however will be transitioning to DNRCC status and plan discontinuation of his antibiotic therapies. #3. Acute kidney injury on CKD 3 unclear specific subtype with concurrent anion gap metabolic acidosis: Patient with notable acidosis and volume overload with dialysis initiated, nephrology following, noted element of hypotension with dialysis with pressor usage to mediate per member of congress recommendation as needed, had initially plan for tunneled catheter per surgery, previously maintained on bicarb drip however given comfort care transition will discontinue. #4. Acute blood loss anemia: Patient 04/22/2021 hemoglobin at that time 13.7, upon admission 04/29/2021 hemoglobin 12.1 with de-escalation throughout a dmission, most recent 05/05/2021 hemoglobin 8.2--> 05/06/2021 hemoglobin 8.7, stable. #5. Bradycardia, perioperatively: Patient beta-maria elena held, 12/02/2020 prior EKG with first-degree AV block at that time, maintained on telemetry monitoring. #6. Recent acute left femoral vein DVT: Status post recent IVC filter placement, patient had preop Lovenox with hold perioperatively given significant intervention, defer reinitiation of therapeutic anticoagulation to general surgery given significant serial interventions recently. #7. History of prostate cancer: Status post prostatectomy with chronic restriction, continued Ferrari catheter, urology Dr. Gordillo is aware. #8. Diabetes mellitus type II: Last noted hemoglobin A1c 5.7%, continued tube feeds however will hold given plan terminal wean, accu checks w/ ISS. #9. Hypertension: Holding oral regimen, as needed IV hydralazine in interim. #10. DVT prophylaxis: SCDs, holding chemoprophylaxis with recent IVC filter placement given worsening anemia is noted. #11. CODE status: Patient's family all arrived, several from out of state in cluding also spouse who is present and a daughter who is a physician herself. Given patient significant status requiring pressor therapy and recent acute intubation needs, discussed CODE status at length including difference between FULL code, DNR-CCA and DNR-CC status. Following discussions about the differences in these status, requested transition to DNRCC status with terminal extubation. CODE STATUS form signed and patient status transitioned as well as transition to comfort orders. Plan terminal extubation once all family has met with the patient and spent time with him per their discretion. Advanced Care Planning Face to Face Time: 16 minutes. Charges/Coding Visit Charges Inpatient E&M: 62138 Subs Hosp L3 Procedures Hospitalists Procedures: 77832 Advncd Care Plan 30 Min
[2021-05-06] MEDS: CHLORHEXIDINE GLUC 2% CLOTH 1 EACH TOWELETTE TOPICAL (08:20)
[2021-05-06] MEDS: Magnesium Chloride 64 MG Delay Rel.Tablet 128 MG PO (08:23)
[2021-05-06] MEDS: Chlorhexidine 15 ML PO (08:35)
[2021-05-06 09:48] LABS: Vancomycin, Random Level 7.7 ug/mL (0.0-15.0)
--- NOTE | 2021-05-06 10:25 | NURSING ---
Family at the bedside and given an update. They requested some time to discuss the plan of care and if they wish to terminally wean. The daughter, Marci came out of the room and stated that they wish to terminally wean the patient. Dr. Story on the floor and notified. Dr. Story went into the room and discussed terminally weaning the patient with the family. Family wants to take some time to be with the patient and will notify us when they are ready to terminally wean.
--- NOTE | 2021-05-06 10:28 | PCM.RX.CS ---
Consult Pharmacy has been consulted to manage selected antiobiotic: Vancomycin Suspected Infection: Other - SHOCK/PNUEMONIA Labs: Sodium 138 mmol/L (136-145) 05/06/21 05:00 Potassium 3.4 mmol/L (3.5-5.1) L 05/06/21 05:00 Chloride 105 mmol/L (98-107) 05/06/21 05:00 Carbon Dioxide 23.0 mmol/L (21.0-32.0) 05/06/21 05:00 Anion Gap 10 (5-15) 05/06/21 05:00 BUN 53 mg/dL (7-18) H 05/06/21 05:00 Creatinine 2.81 mg/dL (0.70-1.30) H 05/06/21 05:00 Est GFR (MDRD) Af Amer 28 mL/min (>60) L 05/06/21 05:00 Est GFR (MDRD) Non-Af 23 mL/min (>60) L 05/06/21 05:00 BUN/Creatinine Ratio 18.9 RATIO (10-20) 05/06/21 05:00 Glucose 323 mg/dL (74-106) H 05/06/21 05:00 Random Vancomycin 7.7 ug/mL (0.0-15.0) 05/06/21 07:50 Microbiology: Microbiology 04/30/21 06:50 Urine Catheter - Ferrari Urine Culture - Final Culture exhibits no growth. Goal Trough: 15-20 mcg/mL Pharmacy Plan for Drug Dosing: VANCOMYCIN LEVEL RECEIVED Current Vancomycin Dose: 1000MG X1 Number of Doses Received: 1 Vancomycin Level: 7.7MG/DL Hours Since Last Dose: 51 HOURS Renal Function: SCR 2.81, STARTED HD YESTERDAY Lab/Micro: BLOOD CX AND RESP CX PENDING Vancomycin Plan/Comments: RANDOM VANCOMYCIN LEVEL SUBTHERAPEUTIC, WILL DOSE BASED ON PRE-HD LEVEL. PER NURSE, PT TO HAVE HD TODAY. WILL GIVE 1000MG X1 AFTER HD TODAY AND GET A RANDOM LEVEL IN AM IN CASE OF HD TOMORROW. Pending Level: 05/07/21 @ 0600 - RANDOM Pharmacy Service will continue to monitor and adjust dosing as required.
--- NOTE | 2021-05-06 10:59 | CPS ---
Patient terminably extubated at 1054
[2021-05-06] MEDS: LORazepam 2 MG/ML Syringe 0.5 MG IV (11:15)
[2021-05-06] MEDS: Atropine Sulfate 1% 2 ml Bottle 4 DRP SL (12:25)
--- NOTE | 2021-05-06 15:38 | DS.PCM_ITS ---
Providers Date of Admission: 04/29/21 Primary Care Physician: Dr. Vipin Martin MD Consultations 04/29/21 15:33 Consult: Hospitalist Routine Consulting Provider: Judith Rueda Reason for Consult: Bradycardia, diabetes, dementia, debility EMERGENT Consult: No MD Notified: Yes Date Notified: 04/29/21 Time Notified: 14:56 Method of Notification: Verbal 05/01/21 05:24 Consult: Nephrology Routine Consulting Provider: Poornima Torres Reason for Consult: Oliguria EMERGENT Consult: Yes MD Notified: Yes Date Notified: 05/01/21 Time Notified: 06:28 Method of Notification: Text Method of Consult:: In-Person 05/04/21 10:54 Consult: Infectious Disease Routine Consulting Provider: Vince Matos Reason for Consult: R/O pneumonia, infectious in abdomen EMERGENT Consult: No MD Notified: Yes Date Notified: 05/04/21 Time Notified: 08:30 Method of Notification: Verbal 05/05/21 08:22 Consult: Fishing Captain / Pulmonary Medicine Routine Consulting Provider: [facility] Reason for Consult: Acute resp failure, agonal breathing, met acidosis EMERGENT Consult: Yes MD Notified: Yes Date Notified: 05/05/21 Time Notified: 08:22 Method of Notification: Text 05/06/21 12:09 Consult: Hospice / Palliative Care Routine Consulting Provider: [facility] Reason for Consult: Terminally weaned, prior resp failure, intubated, on pressors, colon CA EMERGENT Consult: No MD Notified: Yes Date Notified: 05/06/21 Time Notified: 12:09 Method of Notification: Verbal Reason For Visit: PREOP Diagnosis Discharge Diagnosis (1) Respiratory failure, acute: Status: Acute Code(s): J96.00 - Acute respiratory failure, unspecified whether with hypoxia or hypercapnia Qualifiers: Respiratory failure complication: hypercapnia Qualified Code(s): J96.02 - Acute respiratory failure with hypercapnia Plan: Discharge Diagnoses: #1. Acute combined respiratory failure with hypercapnia #2. Colonic mass with specifically transverse colon mass with large and small bowel obstruction with invasion into the stomach with recent diagnosis colon cancer w/ surgical specimen with moderately differentiated high-grade dysplasia consistent with invasive adenocarcinoma invading and adherent to the stomach with 7 out of 7 lymph nodes negative for carcinoma #3. Acute kidney injury on CKD 3 unclear specific subtype with concurrent anion gap metabolic acidosis #4. Acute blood loss anemia #5. Bradycardia, perioperatively #6. Recent acute left femoral vein DVT, status post recent IVC filter placement #7. History of prostate cancer, status post prostatectomy with chronic restriction #8. Diabetes mellitus type II #9. Hypertension #10. CODE status: DNR-CC Medications at Discharge Home Medications coenzyme Q10 [Co Q-10] 100 mg PO DAILY 03/13/14 vitamin B complex 1 cap PO DAILY 08/17/16 Advanced Memory Formula 1 tablet PO/SL DAILY 11/27/18 propranolol 30 mg PO TID 11/27/18 ascorbic acid (vitamin C) [Vitamin C] 500 mg PO DAILY 04/28/21 cholecalciferol (vitamin D3) [Vitamin D3] 125 mcg PO DAILY 04/28/21 enoxaparin [Lovenox] 80 mg SUBCUT Q12H 04/28/21 magnesium 250 mg PO DAILY 04/28/21 Hospital Course Operations - (04/29/2021 with right hemicolectomy with en bloc partial gastrectomy and PEG placement.) Procedures Blood transfusion, Intubation, IVC filter placement, Peg tube placement and - ( 05/05/2021 with right IJ dialysis catheter) Summary of Care Provided Minutes Spent on Discharge: 40 Hospital Course: The patient is an 81 y/o M w/ PMHx: NAYANA, HTN, hLD, CKD stage III, Hx DVT, Hx essential tremor, Dementia unclear type with unclear behavioral disturbance history, Diabetes mellitus type II who who initially presented to [facility] and was admitted on 04/29/[address] English following recent colonoscopy with evidence of colonic mass status post right eventual colectomy however postop patient had onset significant renal dysfunction. On that date patient had 04/29/2021 with right hemicolectomy with en bloc partial gastrectomy and PEG placement that time with pathology demonstrating gastritis as well as H. pylori noted to be negative, surgical specimen with moderately differentiated high- grade dysplasia consistent with invasive adenocarcinoma invading and adherent to the stomach with 7 out of 7 lymph nodes negative for carcinoma. Patient had a significantly complicated hospital course including eventual ICU transition with intubation 05/05/2021 secondary to concern for progressive respiratory failure, more concern for respiratory fatigue component, initiated on vancomycin as well as Zosyn therapy for recent significant intra-abdominal colon surgery secondary to colon cancer, chest x-ray 05/05/2021 with right IJ dialysis catheter in place with no obvious evidence of pneumonia. Patient with additionally, notable PUMA on CKD III unclear specific subtype with anion gap metabolic acidosis following intervention with volume overload concurrently, poor UOP with dialysis initiated, nephrology following, noted element of hypotension with dialysis with pressor usage to mediate per electrician underground recommendation as needed, had initial plan w/ tunneled catheter per surgery and ongoing bicarb drip. Patient with notable blood loss anemia w/ 04/22/2021 hemoglobin at that time 13.7, upon admission 04/29/2021 hemoglobin 12.1 with de-escalation throughout admission, most recent 05/05/2021 hemoglobin 8.2--> 05/06/2021 hemoglobin 8.7, stabilized. Perioperatively, patient also had notable cardiac arrhythmias including significant bradycardia as well as following intubation episodes of VT and at 1 point concerns for transient phase of torsades. Patient had also history of recent acute left femoral DVT status post IVC filter placement and previously 2 OR had been on Lovenox however this had been held and continued to be held secondary to significant anemia postoperatively. Patient following intubation significantly deteriorated and did even require pressor therapy with continued broad-spectrum antibiotic therapy. Patient family following several discussions and arrival elected to have patient terminally extubated and hospice consulted. Patient felt appropriate for hospice facility transfer which has been arranged. 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 as evidenced estimated PO intake meeting <75% of estimated nutritional needs x 3 months, unintentional wt loss; currently NPO and TF hold Status Active Problem Clinical Problem Chronic Disease or Condition Related Malnutrition Etiology severe malnutrition r/t inadequate energy intake d/t GI dysfunction Signs/Symptoms as evidenced by estimated PO intake meeting <75% of estimated nutritional needs x 3 months, unintentional wt loss of 28#/15% wt loss < 6 months, NPO with TF on hold Status Active Problem Recommendation Dietitian Recommendations/Changes NPO; Vital AF 1.2 via PEG tube as tolerated to goal rate of 65mL/hour w/ 40mL H2O flush every 4 hours to provide 1872 calories, 117 g protein, and 1505mL free water/day. Gradually increase by 10mL/ hour every 8-12 hours as pt tolerates until goal rate is achieved. As ordered, enteral nutrition would meet 100% of estimated nutritional needs. Will decrease estimated protein needs given renal status and consider different product as TF advanced and tolerance established if renal status remains compromised. Daily weights. Family meeting today to discuss plan of care. Weight / BMI Weight Weight: 179 lb 7.3 oz Body Mass Index (BMI) 26.2 ABG / Lab / Microbiology Data Result Diagrams: 05/06/21 05:00 05/06/21 05:00 Laboratory: Laboratory Results - last 24 hr 05/05/21 14:48: POC Glucose 62 L 05/05/21 16:13: POC Glucose 91 05/05/21 17:54: POC Glucose 105 05/05/21 17:55: Sodium 142, Potassium 3.5, Chloride 106, Carbon Dioxide 24.0, Anion Gap 12, BUN 45 H, Creatinine 2.30 H, Estim Creat Clear Calc 22.73, Est GFR (MDRD) Af Amer 35 L, Est GFR (MDRD) Non-Af 29 L, BUN/Creatinine Ratio 19.6, Glucose 314 H, Calcium 7.1 L 05/06/21 00:30: POC Glucose 217 H 05/06/21 05:00: Sodium 138, Potassium 3.4 L, Chloride 105, Carbon Dioxide 23.0, Anion Gap 10, BUN 53 H, Creatinine 2.81 H, Estim Creat Clear Calc 18.61, Est GFR (MDRD) Af Amer 28 L, Est GFR (MDRD) Non-Af 23 L, BUN/Creatinine Ratio 18.9, Glucose 323 H, Calcium 7.0 L, Total Bilirubin 0.50, AST 32, ALT 43, Alkaline Phosphatase 67, Total Protein 4.0 L, Albumin 1.5 L, Globulin 2.5, Albumin/Globulin Ratio 0.6 L 05/06/21 05:00: WBC 12.5 H, RBC 3.22 L, Hgb 8.7 L, Hct 26.7 L, MCV 82.9, MCH 27.0, MCHC 32.6, RDW Std Deviation 56.2 H, RDW Coeff of Armani 18.6 H, Plt Count 128 L, MPV 11.1, Immature Gran % (Auto) 1.500 H, Neut % (Auto) 88.6 H, Lymph % (Auto) 3.9 L, Woods % (Auto) 5.9, Eos % (Auto) 0.0, Baso % (Auto) 0.1, Absolute Neuts (auto) 11.1 H, Absolute Lymphs (auto) 0.49 L, Nucleated RBC % 2.0, Differential Comment SCANNED 05/06/21 07:50: Random Vancomycin 7.7 Microbiology: Microbiology 05/05/21 11:33 Sputum, Induced/[place] Respiratory Culture - Preliminary Culture exhibits no growth. 04/30/21 06:50 Urine Catheter - Ferrari Urine Culture - Final Culture exhibits no growth. ABG: ABG 05/05/21 17:14 Specimen Type ART Sample Site R Fem pH 7.42 Bicarbonate Actual 19.8 L Total CO2 21 Base Excess -5 L O2 Saturation 99 O2 % 35 ABG pCO2 30.5 L ABG pO2 125 H Brady Test N/A Respiration Rate 12 O2 Delivery Device Adult Vent Vent Mode AC Tidal Volume 450 POC PEEP 5 D/C Instructions Discharge Diet: Light diet - advance as tolerated (if you have questions about your diet instructions, please talk to you doctor.) May shower in (days): 1 Call your doctor if your incision/area has: Continuous Slow Oozing, Sudden Increased Bleeding, Increased Pain/ Swelling, Increased Redness and Foul Smelling Discharge Call your doctor if you observe: Fever of 101 or Higher Suture Line Care: Avoid Pulling/Pushing and Avoid Pinching/Bending Additional Dressing/Incision Instructions: Change or remove dressing in 4 days. Leave steri-strips in place for 1 week. Please Follow Up With: Vince English MD When: Call [phone] to make an appointment to be seen in about 10 days. Meaningful Use Info Meaningful Use Diagnoses (Choose all that apply): None applicable Discharge Plan Admission Admit Date/Time: 04/29/21 06:59 Attending Provider: Inna Story Primary Care Provider: Vipin Martin Consulting Providers: Celine Martinez ; Inna Story ; Yovany Kapoor ; Aurelia Monroy ; Aramis Craft ; Rod De La Torre ; Issac Ott ; Ralph Wilson ; Jose Wilson ; David Hargrove ; Abhijeet Ramos ; Eliseo Haro ; Margo Torres ; Yan Devries ; Maria R Diaz ; Cory Valdovinos ; Zak Plascencia ; Lawson Lowe ; Lam [place] ; Tarng Monique SUBPOENA SERVER ; Key Good ; Danielle Kidd NP ; Yan Galan SUBPOENA SERVER ; Cleo Perry ; Karen Montemayor ; Vince Matos ; [place] ; Devon Vigil ; oYanna Johnson NP ; Poornima Torres ; Janice Tilley ; Aramis Zendejas ; Theresa Larry ; Luiza Gallardo ; Clemencia Boone ; Caroline Monterroso SUBPOENA SERVER Discharge Orders/Prescriptions Prescriptions: No Action coenzyme Q10 [Co Q-10] 100 MG capsule 100 mg PO DAILY RF: 0 vitamin B complex 1 EACH capsule 1 cap PO DAILY RF: 0 Advanced Memory Formula 1 tablet PO/SL DAILY RF: 0 propranolol 10 MG tablet 30 mg PO TID RF: 0 ascorbic acid (vitamin C) [Vitamin C] 500 mg Tablet 500 mg PO DAILY RF: 0 magnesium 250 mg Tablet 250 mg PO DAILY RF: 0 cholecalciferol (vitamin D3) [Vitamin D3] 125 mcg (5,000 unit) Tablet 125 mcg PO DAILY RF: 0 enoxaparin [Lovenox] 80 mg/0.8 mL syringe 80 mg subcut Q12H RF: 0 Other Ambulatory Orders: 12 Lead EKG (Routine) Timeframe: [id number] Location: None Selected Ordered By: Dr. Vince English Referrals / Follow Up: Vipin Martin MD [Primary Care Provider] - Disposition Discharge Orders: Discharge Patient (Routine); Ordered 05/06/21 Ordered By: Dr. Inna Stoyr Charges/Coding Visit Charges Inpatient E&M: 23822 Disch Hosp
== END 2021-05-06 17:35 | disposition hospice, inpatient (51) | DRG 326 ==
LOC: ACINP 08:19 → MS2 16:47 → PCU 17:46 → ICU 05-05 12:43
PROVIDERS: Anesthesiology; Family Medicine; Hospitalist; Internal Medicine; Internal Medicine Critical Care Medicine; Internal Medicine Infectious Disease; Internal Medicine Nephrology; Physician Assistant; Admitting Provider Surgery; PCP Internal Medicine; Visit Provider Family Medicine
PROC: 0DB60ZZ Excision of Stomach, Open Approach (ICD-10-PCS; CPT 44205; principal; 2021-04-29 10:40)
DX: C18.4 Malignant neoplasm of transverse colon (principal); J96.02 Acute respiratory failure with hypercapnia; E43 Unspecified severe protein-calorie malnutrition; N17.9 Acute kidney failure, unspecified; I82.412 Acute embolism and thrombosis of left femoral vein; E87.2 Acidosis; G93.40 Encephalopathy, unspecified; C78.89 Secondary malignant neoplasm of other digestive organs; R00.1 Bradycardia, unspecified; E11.22 Type 2 diabetes mellitus with diabetic chronic kidney disease; N18.30 Chronic kidney disease, stage 3 unspecified; I12.9 Hypertensive chronic kidney disease with stage 1 through stage 4 chronic kidney disease, or unspecified chronic kidney disease; Z66 Do not resuscitate; K21.00 Gastro-esophageal reflux disease with esophagitis, without bleeding; Z98.0 Intestinal bypass and anastomosis status; F03.90 Unspecified dementia, unspecified severity, without behavioral disturbance, psychotic disturbance, mood disturbance, and anxiety; G47.30 Sleep apnea, unspecified; E86.0 Dehydration; Z79.02 Long term (current) use of antithrombotics/antiplatelets; Z89.511 Acquired absence of right leg below knee; G25.0 Essential tremor; N35.819 Other urethral stricture, male, unspecified site; Z85.46 Personal history of malignant neoplasm of prostate; Z68.26 Body mass index [BMI] 26.0-26.9, adult; D63.1 Anemia in chronic kidney disease; E87.6 Hypokalemia; I95.3 Hypotension of hemodialysis
CPT/HCPCS: 31500; 31720; 36415; 36569; 36600; 37191; 71045; 71046; 76770; 76937; 80048; 80053; 80069; 80202; 81001; 81002; 82140; 82378; 82550; 82570; 82803; 82962; 83036; 83735; 83880; 84100; 84145; 84300; 84478; 84550; 85025; 85610; 86850; 86900; 86901; 87040; 87070; 87086; 87205; 87635; 87641; 88309; 88341; 88342; 90937; 93005; 94002; 94003; 94640; 97110; 97162; 97167; 97530; 97535; 97802; 97803; 99251; J7030; J7040; J7050; J7120; P9047; Q9967; U0005; A4216; C1752; C1760; C1769; C1880; G0257; G0463; J1940; J2405; J3010; U0003